=== PATIENT | male | born 1955 | race Caucasian/White ===

== ENCOUNTER 2016-06-07 08:33 | Inpatient (IN) | payer OTHER ==
[2016-06-07 08:50] VITALS: BMI 21.2
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
[2016-06-07] MEDS ORDERED: LOPERAMIDE HCL 2 MG CAPSULE PO PRN (12:24)
[2016-06-07] MEDS ORDERED: MENTHOL/PHENOL 1 EACH UD MM PRN (12:24)
[2016-06-07] MEDS ORDERED: MAGNESIUM HYDROX 2400MG/30ML ORAL SUSPENSION 30 ML CUP PO PRN (12:24)
[2016-06-07] MEDS ORDERED: P-EPHED 60MG/TRIPROLIDI 2.5MG TABLET PO PRN (12:24)
[2016-06-07] MEDS ORDERED: ACETAMINOPHEN 325 MG TABLET (FP) PO PRN (12:24)
[2016-06-07] MEDS ORDERED: MAGNESIUM CITRATE 300 ML BOTTLE PO PRN (12:24)
[2016-06-07] MEDS ORDERED: diphenhydrAMINE HCL 50 MG CAPSULE PO PRN (12:24)
[2016-06-07] MEDS ORDERED: chlordiazePOXIDE HCL 25 MG CAPSULE PO PRN (12:24)
[2016-06-07] MEDS ORDERED: MAG HYDROX/AL HYDROX/SIMETH 30 ML UNIT-DOSE CUP PO PRN (12:24)
[2016-06-07] MEDS ORDERED: chlordiazePOXIDE HCL 25 MG CAPSULE PO ONE (12:39)
[2016-06-07] MEDS ORDERED: METHADONE HCL 10 MG TABLET (FOR DETOX USE ONLY) PO ONE ×2 (12:41→23:00)
[2016-06-07 17:26] LABS: URINE APPEARANCE SLCLOUDY; URINE BILIRUBIN NEGATIVE (NEGATIVE); URINE COLOR YELLOW; URINE GLUCOSE (UA) NEGATIVE (NEGATIVE); URINE KETONE NEGATIVE (NEGATIVE); URINE LEUK ESTERASE NEGATIVE (NEGATIVE); URINE NITRITE NEGATIVE (NEGATIVE); URINE PROTEIN NEGATIVE (NEGATIVE); URINE UROBILINOGEN 2.0 E.U/dl E.U./dl (0.2-1.0)
[2016-06-07 17:27] LABS: URINE BLOOD 1+ (NEGATIVE)
[2016-06-07] MEDS: chlordiazePOXIDE HCL 25 MG CAPSULE PO SCH ×2 (17:33→22:22)
[2016-06-07] MEDS: guaiFENesin/D-METHORPHAN HB 10 ML UNIT-DOSE CUPS PO PRN (17:35)
[2016-06-07 17:40] LABS: CALCIUM OXALATE CRYSTALS MANY /hpf (NONE SEEN); URINE BACTERIA RARE /hpf (NONE SEEN); URINE MUCUS FEW; URINE RBC 9 /hpf (0-3); URINE WBC 2 /hpf (3-5)
[2016-06-07] MEDS: IBUPROFEN 400 MG TABLET (FP) PO PRN (20:57)
[2016-06-07] MEDS: EFAVIRENZ 600 MG TABLET PO SCH (22:20)
[2016-06-07] MEDS: EMTRICITABINE 200MG/TENOFOVIR 300MG PO SCH (22:21)
[2016-06-07] MEDS: THIAMINE HCL 100 MG TABLET (FP) PO SCH (22:21)
[2016-06-07] MEDS: hydrOXYzine PAMOATE 25 MG CAPSULE (FP) PO PRN (22:24)
[2016-06-08] MEDS: chlordiazePOXIDE HCL 25 MG CAPSULE PO SCH ×4 (06:06→22:11)
[2016-06-08] MEDS: IBUPROFEN 400 MG TABLET (FP) PO PRN (06:32)
[2016-06-08] MEDS ORDERED: METHADONE HCL 10 MG TABLET (FOR DETOX USE ONLY) PO SCH (10:00)
[2016-06-08] MEDS ORDERED: cloNIDine HCL 0.1 MG TABLET PO ONE (10:25)
[2016-06-08 10:33] LABS: ALBUMIN 3.3 g/dl (3.4-5.0); ALK PHOS 106 U/L (45-117); ANION GAP 6 (8-16); BILIRUBIN,TOTAL 0.3 mg/dL (0.2-1.0); CALCIUM 8.5 mg/dL (8.5-10.1); CO2 28 mmol/L (21-32); CREATININE 0.8 mg/dL (0.7-1.3); GLUCOSE,RANDOM 96 mg/dL (74-106); SGOT/AST 26 U/L (15-37); SGPT/ALT 21 U/L (12-78); TOT PROT 6.9 g/dl (6.4-8.2)
[2016-06-08] MEDS: PRENATAL VITAMINS W/ FOLIC ACID TABLET (FP) PO SCH (10:34)
[2016-06-08] MEDS: CYCLOBENZAPRINE HCL 10 MG TABLET (FP) PO PRN (10:36)
--- NOTE | 2016-06-08 10:52 | PN ---
S COWS - Scale Resting Pulse: 1= [place] 81-100 Sweatin=Flushed/Facial Moisture Restless Observation: 3= Extraneous Movement Pupil Size: 1= Pupils >than Normal Bone or Joint Aches: 2= Severe Diffuse Aches Runny Nose/ Eye Tearin= Runny Nose/Eyes GI Upset > 30mins: 2= Nausea/Diarrhea Tremor Observation of Outstretched Hands: 2= Slight Tremor Visible Yawning Observation: 1= 1-2x During Session Anxiety or Irritability: 2=Irritable/Anxious Goose Flesh Skin: 0=Smooth Skin COWS Score: 18 S Progress Note (SOAP) Subjective: alert,irritable,anxious,interrupted sleep,tremor,pain in the body and back Objective: 06/08/16 10:50 Vital Signs Temperature 95.8 F L 06/08/16 09:58 Pulse Rate 82 06/08/16 09:58 Respiratory Rate 18 06/08/16 09:58 Blood Pressure 134/87 06/08/16 09:58 O2 Sat by Pulse Oximetry (%) ekg sinus braycardia 55/min Laboratory Last Values Sodium 140 mmol/L (136-145) 06/08/16 06:00 Potassium 3.6 mmol/L (3.5-5.1) 06/08/16 06:00 Chloride 106 mmol/L (98-107) 06/08/16 06:00 Carbon Dioxide 28 mmol/L (21-32) 06/08/16 06:00 Anion Gap 6 (8-16) L 06/08/16 06:00 BUN 20 mg/dL (7-18) H D 06/08/16 06:00 Creatinine 0.8 mg/dL (0.7-1.3) 06/08/16 06:00 Creat Clearance w eGFR > 60 (>60) 06/08/16 06:00 Random Glucose 96 mg/dL (74-106) D 06/08/16 06:00 Calcium 8.5 mg/dL (8.5-10.1) 06/08/16 06:00 Total Bilirubin 0.3 mg/dL (0.2-1.0) D 06/08/16 06:00 AST 26 U/L (15-37) 06/08/16 06:00 ALT 21 U/L (12-78) 06/08/16 06:00 Alkaline Phosphatase 106 U/L (45-117) 06/08/16 06:00 Total Protein 6.9 g/dl (6.4-8.2) 06/08/16 06:00 Albumin 3.3 g/dl (3.4-5.0) L 06/08/16 06:00 Urine Color Yellow 06/07/16 15:00 Urine Appearance Slcloudy 06/07/16 15:00 Urine pH 6.0 (5.0-8.0) 06/07/16 15:00 Ur Specific [place] 1.018 (1.001-1.035) 06/07/16 15:00 Urine Protein Negative (NEGATIVE) 06/07/16 15:00 Urine Glucose (UA) Negative (NEGATIVE) 06/07/16 15:00 Urine Ketones Negative (NEGATIVE) 06/07/16 15:00 Urine Blood 1+ (NEGATIVE) H 06/07/16 15:00 Urine Nitrite Negative (NEGATIVE) 06/07/16 15:00 Urine Bilirubin Negative (NEGATIVE) 06/07/16 15:00 Urine Urobilinogen 2.0 e.u/dl E.U./dl (0.2-1.0) 06/07/16 15:00 Ur Leukocyte Esterase Negative (NEGATIVE) 06/07/16 15:00 Urine RBC 9 /hpf (0-3) 06/07/16 15:00 Urine WBC 2 /hpf (3-5) 06/07/16 15:00 Calcium Oxalate Crystal Many /hpf (NONE SEEN) 06/07/16 15:00 Urine Bacteria Rare /hpf (NONE SEEN) 06/07/16 15:00 Urine Mucus Few 06/07/16 15:00 labs pending Assessment: 06/08/16 10:51 withdrawal symptom Plan: continue detox
[2016-06-08 11:13] LABS: MCH 32.1 pg (25.7-33.7); MCHC 33.8 g/dl (32.0-35.9); MEAN PLT VOLUME 9.8 fl (7.5-11.1); PLATELET COUNT 231 K/MM3 (134-434); RDW 14.9 % (11.9-15.9); WHITE BLOOD COUNT 6.5 K/mm3 (4.0-10.0)
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
[2016-06-08] MEDS: THIAMINE HCL 100 MG TABLET (FP) PO SCH (22:11)
[2016-06-08] MEDS: cloNIDine HCL 0.1 MG TABLET PO SCH (22:11)
[2016-06-08] MEDS: EFAVIRENZ 600 MG TABLET PO SCH (22:11)
[2016-06-08] MEDS: EMTRICITABINE 200MG/TENOFOVIR 300MG PO SCH (22:11)
[2016-06-09] MEDS: chlordiazePOXIDE HCL 25 MG CAPSULE PO SCH ×2 (06:11→10:25)
[2016-06-09] MEDS: cloNIDine HCL 0.1 MG TABLET PO SCH ×2 (10:25→22:43)
[2016-06-09] MEDS: METHADONE HCL 5 MG TABLET (FOR DETOX USE ONLY) PO SCH (10:25)
[2016-06-09] MEDS: PRENATAL VITAMINS W/ FOLIC ACID TABLET (FP) PO SCH (10:25)
[2016-06-09] MEDS: chlordiazePOXIDE 5 MG CAPSULE PO SCH ×2 (17:14→22:43)
[2016-06-09] MEDS: guaiFENesin/D-METHORPHAN HB 10 ML UNIT-DOSE CUPS PO PRN (19:52)
[2016-06-09] MEDS: ALBUTEROL SO4 6.7 GM HFA INHALER IH PRN (21:37)
[2016-06-09] MEDS: THIAMINE HCL 100 MG TABLET (FP) PO SCH (22:42)
[2016-06-09] MEDS: EFAVIRENZ 600 MG TABLET PO SCH (22:43)
[2016-06-09] MEDS: EMTRICITABINE 200MG/TENOFOVIR 300MG PO SCH (22:43)
[2016-06-09] MEDS: hydrOXYzine PAMOATE 25 MG CAPSULE (FP) PO PRN (22:45)
--- NOTE | 2016-06-09 23:21 | PN ---
[facility] CIWA - CIWA Score Nausea/Vomitin-Mild Nausea/No Vomiting Muscle Tremors: 3 Anxiety: 3 Agitation: 3 Paroxysmal Sweats: 3 Orientation: 0-Oriented Tacttile Disturbances: 0-None Auditory Disturbances: 0-None Visual Disturbances: 0-None Headache: 0-None Present CIWA-Ar Total Score: 13 [facility] COWS - Scale Resting Pulse: 0= MD 80 or Below Sweatin= Chills/Flushing Restless Observation: 1= Difficult to Sit Still Pupil Size: 0= Normal to Room Light Bone or Joint Aches: 1= Mild Discomfort Runny Nose/ Eye Tearin= Runny Nose/Eyes GI Upset > 30mins: 2= Nausea/Diarrhea Tremor Observation of Outstretched Hands: 2= Slight Tremor Visible Yawning Observation: 1= 1-2x During Session Anxiety or Irritability: 2=Irritable/Anxious Goose Flesh Skin: 0=Smooth Skin COWS Score: 12 S Progress Note (SOAP) Subjective: ANXIETY,TREMORS,SWEATING,INTERRUPTED SLEEP,RESTLESS. Objective: 06/09/16 23:19 Vital Signs - 8 hr 06/09/16 20:04 Temperature 98.6 F Pulse Rate 77 Respiratory 18 Rate Blood Pressure 127/78 Assessment: 06/09/16 23:20 WITHDRAWAL SX. Plan: CONTINUE DETOX
[2016-06-10] MEDS: chlordiazePOXIDE 5 MG CAPSULE PO SCH ×2 (05:34→10:23)
[2016-06-10] MEDS: METHADONE HCL 5 MG TABLET (FOR DETOX USE ONLY) PO SCH (10:23)
[2016-06-10] MEDS: PRENATAL VITAMINS W/ FOLIC ACID TABLET (FP) PO SCH (10:23)
[2016-06-10] MEDS: cloNIDine HCL 0.1 MG TABLET PO SCH ×2 (10:25→22:26)
[2016-06-10] MEDS: guaiFENesin/D-METHORPHAN HB 10 ML UNIT-DOSE CUPS PO PRN (12:51)
[2016-06-10] MEDS: ALBUTEROL SO4 6.7 GM HFA INHALER IH PRN (12:54)
--- NOTE | 2016-06-10 15:26 | PN ---
[facility] Progress Note (SOAP) Subjective: Sweating, stomach discomfort, interrupted sleep, anxiety Objective: 06/10/16 15:21 Last Vital Signs Temp Pulse Resp BP Pulse Ox 97.8 F 95 H 20 135/84 06/10/16 13:42 06/10/16 13:42 06/10/16 13:42 06/10/16 13:42 Laboratory Tests 06/07/16 06/08/16 06/08/16 15:00 06:00 06:00 WBC 6.5 D RBC 3.93 L Hgb 12.6 Hct 37.3 MCV 95.0 MCHC 33.8 RDW 14.9 D Plt Count 231 MPV 9.8 Sodium 140 Potassium 3.6 Chloride 106 Carbon Dioxide 28 Anion Gap 6 L BUN 20 H D Creatinine 0.8 Creat Clearance w eGFR > 60 Random Glucose 96 D Calcium 8.5 Total Bilirubin 0.3 D AST 26 ALT 21 Alkaline Phosphatase 106 Total Protein 6.9 Albumin 3.3 L Urine Color Yellow Urine Appearance Slcloudy Urine pH 6.0 Ur Specific [place] 1.018 Urine Protein Negative Urine Glucose (UA) Negative Urine Ketones Negative Urine Blood 1+ H Urine Nitrite Negative Urine Bilirubin Negative Urine Urobilinogen 2.0 e.u/dl Ur Leukocyte Esterase Negative Urine RBC 9 Urine WBC 2 Calcium Oxalate Crystal Many Urine Bacteria Rare Urine Mucus Few RPR Titer 06/08/16 06:00 WBC RBC Hgb Hct MCV MCHC RDW Plt Count MPV Sodium Potassium Chloride Carbon Dioxide Anion Gap BUN Creatinine Creat Clearance w eGFR Random Glucose Calcium Total Bilirubin AST ALT Alkaline Phosphatase Total Protein Albumin Urine Color Urine Appearance Urine pH Ur Specific [place] Urine Protein Urine Glucose (UA) Urine Ketones Urine Blood Urine Nitrite Urine Bilirubin Urine Urobilinogen Ur Leukocyte Esterase Urine RBC Urine WBC Calcium Oxalate Crystal Urine Bacteria Urine Mucus RPR Titer Nonreactive Labs noted: microscopic hematuria, calcium oxalate stones Assessment: 06/10/16 15:23 Withdrawal symptoms Noted with microscopic hematuria and calcium oxalate stones Plan: Continue detox; ambien 10mg qhs prn for impaired sleep Microscopic hematuria, calcium oxalate stones: encourage to drink lots of water , repeat UA
[2016-06-10] MEDS: chlordiazePOXIDE HCL 10 MG CAPSULE PO SCH ×2 (17:36→22:25)
[2016-06-10] MEDS: IBUPROFEN 400 MG TABLET (FP) PO PRN (17:39)
[2016-06-10] MEDS: EFAVIRENZ 600 MG TABLET PO SCH (22:25)
[2016-06-10] MEDS: THIAMINE HCL 100 MG TABLET (FP) PO SCH (22:25)
[2016-06-10] MEDS: EMTRICITABINE 200MG/TENOFOVIR 300MG PO SCH (22:27)
[2016-06-10] MEDS: ZOLPIDEM TARTRATE 10 MG TABLET (PARK CARE ONLY) PO PRN (23:21)
[2016-06-11] MEDS: guaiFENesin/D-METHORPHAN HB 10 ML UNIT-DOSE CUPS PO PRN (04:43)
[2016-06-11] MEDS: chlordiazePOXIDE HCL 10 MG CAPSULE PO SCH ×2 (05:41→10:34)
[2016-06-11] MEDS ORDERED: METHADONE HCL 10 MG TABLET (FOR DETOX USE ONLY) PO SCH (10:00)
[2016-06-11] MEDS: BACITRACIN 0.9 GM PACKET TP SCH ×2 (10:34→22:34)
[2016-06-11] MEDS: PRENATAL VITAMINS W/ FOLIC ACID TABLET (FP) PO SCH (10:34)
[2016-06-11] MEDS: cloNIDine HCL 0.1 MG TABLET PO SCH ×2 (10:34→22:34)
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
[2016-06-11 16:40] LABS: URINE APPEARANCE CLEAR; URINE BILIRUBIN NEGATIVE (NEGATIVE); URINE BLOOD NEGATIVE (NEGATIVE); URINE COLOR STRAW; URINE GLUCOSE (UA) NEGATIVE (NEGATIVE); URINE KETONE NEGATIVE (NEGATIVE); URINE LEUK ESTERASE NEGATIVE (NEGATIVE); URINE NITRITE NEGATIVE (NEGATIVE); URINE PROTEIN NEGATIVE (NEGATIVE); URINE UROBILINOGEN NEGATIVE E.U./dl (0.2-1.0)
[2016-06-11] MEDS: CYCLOBENZAPRINE HCL 10 MG TABLET (FP) PO PRN (17:09)
[2016-06-11] MEDS: IBUPROFEN 400 MG TABLET (FP) PO PRN (17:09)
[2016-06-11] MEDS: EFAVIRENZ 600 MG TABLET PO SCH (22:34)
[2016-06-11] MEDS: EMTRICITABINE 200MG/TENOFOVIR 300MG PO SCH (22:34)
[2016-06-11] MEDS: ZOLPIDEM TARTRATE 10 MG TABLET (PARK CARE ONLY) PO PRN (22:36)
[2016-06-11] MEDS: THIAMINE HCL 100 MG TABLET (FP) PO SCH (23:46)
[2016-06-12] MEDS ORDERED: METHADONE HCL 5 MG TABLET (FOR DETOX USE ONLY) PO SCH (06:00)
--- NOTE | 2016-06-12 08:22 | PN ---
S Progress Note (SOAP) Subjective: ALERT,NO COMPLAINT Objective: 06/12/16 08:20 Vital Signs Temperature 97.6 F 06/12/16 06:27 Pulse Rate 80 06/12/16 06:27 Respiratory Rate 18 06/12/16 06:27 Blood Pressure 122/78 06/12/16 06:27 O2 Sat by Pulse Oximetry (%) Assessment: 06/12/16 08:21 DETOX COMPLETED,NO WITHDRAWAL SYMPTOM Plan: DISCHARGE TODAY,FOLLOW UP WITH AFTER CARE PROGRAM ARRANGEMENT
--- NOTE | 2016-06-12 08:25 | DS ---
[facility] Detox Discharge Summary Admission Date: 06/07/16 Discharge Date: 06/13/16 - History Present History: Cocaine Dependence, Opioid Dependence Additional Comments: FOLLOW UP WITH AFTER CARE PROGRAM ARRANGEMENT Pertinent Past History: AIDS ASTHMA HEPATITIS C WEIGHT LOSS NICOTINE DEPENDENCE BIPOLAR DISORDER - Physical Exam Results Vital Signs: Vital Signs Temperature 97.6 F 06/12/16 06:27 Pulse Rate 80 06/12/16 06:27 Respiratory Rate 18 06/12/16 06:27 Blood Pressure 122/78 06/12/16 06:27 O2 Sat by Pulse Oximetry (%) Pertinent Admission Physical Exam Findings: WITHDRAWAL SYMPTOM - Treatment Hospital Course: Detox Protocol Followed, Detoxed Safely, Responded well, Discharged Condition Good Patient has Accepted a Rehab Referral to: [facility] - Medication Discharge Medications: Ambulatory Orders Albuterol Sulfate Inhaler - [Ventolin HFA Inhaler -] 2 inh PO Q4H PRN 12/08/13 Efavirenz/Emtricitab/Tenofovir [Atripla Tablet -] 1 tab PO DAILY 03/23/16 Gabapentin [Neurontin -] 300 mg PO Q8H 06/07/16 - Diagnosis (1) Cocaine dependence Current Visit: Yes Status: Acute (2) Opioid dependence with withdrawal Current Visit: Yes Status: Acute (3) Acquired immune deficiency syndrome (AIDS) Current Visit: Yes Status: Chronic (4) Asthma Current Visit: Yes Status: Chronic Qualifiers: Asthma severity: mild intermittent Asthma complication type: uncomplicated Qualified Code(s): J45.20 - Mild intermittent asthma, uncomplicated (5) Hepatitis C carrier Current Visit: Yes Status: Chronic (6) Nicotine dependence, cigarettes, uncomplicated Current Visit: Yes Status: Acute (7) Weight loss Current Visit: Yes Status: Chronic (8) Bipolar disorder Current Visit: Yes Status: Acute - AMA Did Patient Leave Against Medical Advice: No
[2016-06-12 09:42] VITALS: BP 108/61; PULSE 67; TEMP 97.8
[2016-06-12] MEDS: BACITRACIN 0.9 GM PACKET TP SCH (10:39)
[2016-06-12] MEDS: cloNIDine HCL 0.1 MG TABLET PO SCH (10:39)
[2016-06-12] MEDS: PRENATAL VITAMINS W/ FOLIC ACID TABLET (FP) PO SCH (10:39)
--- NOTE | 2016-06-13 09:42 | EKG ---
Test Reason : Blood Pressure : / mmHG Vent. Rate : 055 BPM Atrial Rate : 055 BPM P-R Int : 172 ms QRS Dur : 098 ms QT Int : 488 ms P-R-T Axes : 055 053 047 degrees QTc Int : 466 ms SINUS BRADYCARDIA OTHERWISE NORMAL ECG WHEN COMPARED WITH ECG OF 08-SEP-2015 17:29, INCOMPLETE RIGHT BUNDLE BRANCH BLOCK IS NO LONGER PRESENT Confirmed by KENDALL DAMIAN, LENNY ([id number]) on 06/13/2016 9:42:33 AM Referred By: Yair Phillip Confirmed By:LENNY ARGUETA MD
== END 2016-06-12 10:43 | disposition other institution (70) | DRG 773 ==
LOC: YASAS 08:33 → Y3N 12:27
PROVIDERS: ADMIT Internal Medicine; ATTEND Internal Medicine
PROC: HZ2ZZZZ Detoxification Services for Substance Abuse Treatment (ICD-10-PCS; principal; 2016-06-07)
DX: F11.23 Opioid dependence with withdrawal (principal); F10.230 Alcohol dependence with withdrawal, uncomplicated; F14.20 Cocaine dependence, uncomplicated; F17.210 Nicotine dependence, cigarettes, uncomplicated; F31.9 Bipolar disorder, unspecified; B20 Human immunodeficiency virus [HIV] disease; J45.20 Mild intermittent asthma, uncomplicated; B18.2 Chronic viral hepatitis C; R31.29 Other microscopic hematuria; H91.91 Unspecified hearing loss, right ear; G62.9 Polyneuropathy, unspecified; M54.5 Low back pain; G89.29 Other chronic pain; R76.11 Nonspecific reaction to tuberculin skin test without active tuberculosis; M12.9 Arthropathy, unspecified; R00.1 Bradycardia, unspecified; Z87.898 Personal history of other specified conditions
CPT/HCPCS: 36415; 71010-TC; 80053; 81003; 81015; 85027; 86593; 93005; 93010

== ENCOUNTER 2016-06-12 11:01 | Inpatient (IN) | payer OTHER ==
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
[2016-06-12] MEDS ORDERED: ACETAMINOPHEN 325 MG TABLET (FP) PO PRN (14:56)
[2016-06-12] MEDS ORDERED: MAGNESIUM HYDROX 2400MG/30ML ORAL SUSPENSION 30 ML CUP PO PRN (14:56)
[2016-06-12] MEDS ORDERED: MAGNESIUM CITRATE 300 ML BOTTLE PO PRN (14:56)
[2016-06-12] MEDS ORDERED: MAG HYDROX/AL HYDROX/SIMETH 30 ML UNIT-DOSE CUP PO PRN (14:56)
[2016-06-12] MEDS ORDERED: diphenhydrAMINE HCL 50 MG CAPSULE PO PRN (14:56)
[2016-06-12] MEDS ORDERED: MENTHOL/PHENOL 1 EACH UD MM PRN (14:56)
[2016-06-12] MEDS ORDERED: NICOTINE POLACRILEX 4 MG GUM BUC PRN (14:56)
[2016-06-12] MEDS ORDERED: LOPERAMIDE HCL 2 MG CAPSULE PO PRN (14:56)
[2016-06-12] MEDS ORDERED: GABAPENTIN 300 MG CAPSULE (FP) PO SCH (15:00)
--- NOTE | 2016-06-12 16:19 | HP ---
[facility] Rehab Assess/Revision - Admission History Admitted to Rehab from: [facility] Date of Admission to Rehab: 06/12/16 - Vital signs Vital Signs: Vital Signs Period Temp Pulse Resp BP Sys/Hyman Pulse Ox Last 24 Hr 98.2 F 84 18 116/67 - Findings Detox History & Physical reviewed: Yes Concur with findings: Yes Comments/Additional Findings: transferred from detox to rehab admission as per protocol
[2016-06-12] MEDS: CEPHALEXIN MONOHYDRATE 500 MG CAPSULE (UD) PO SCH ×2 (17:51→23:01)
[2016-06-12] MEDS: IBUPROFEN 400 MG TABLET (FP) PO PRN (17:55)
[2016-06-12] MEDS: THIAMINE HCL 100 MG TABLET (FP) PO SCH (21:20)
[2016-06-12] MEDS: traZODone HCL 100 MG TABLET (FP) PO SCH (21:20)
[2016-06-12] MEDS: TOLNAFTATE 1% CREAM 15 GM TUBE TP SCH (21:21)
[2016-06-12] MEDS: GABAPENTIN 300 MG CAPSULE (FP) PO SCH (21:21)
[2016-06-12] MEDS: POVIDONE-IODINE 10% SOLN 118 ML BOTTLE NR SCH (21:21)
[2016-06-12] MEDS: guaiFENesin/D-METHORPHAN HB 10 ML UNIT-DOSE CUPS PO PRN (21:21)
[2016-06-12] MEDS ORDERED: POVIDONE-IODINE 10% SOLN 118 ML BOTTLE NR SCH (22:00)
--- NOTE | 2016-06-12 22:39 | PN ---
[facility] Progress Note Note: received nurse call requests to change keflex from q6h to qid recommend antibiotic better result with even interval continue rehab
[2016-06-13] MEDS: CEPHALEXIN MONOHYDRATE 500 MG CAPSULE (UD) PO SCH ×3 (05:55→17:20)
[2016-06-13] MEDS: GABAPENTIN 300 MG CAPSULE (FP) PO SCH ×3 (05:55→21:26)
[2016-06-13] MEDS: IBUPROFEN 400 MG TABLET (FP) PO PRN ×2 (05:56→17:20)
[2016-06-13] MEDS: P-EPHED 60MG/TRIPROLIDI 2.5MG TABLET PO PRN (05:57)
[2016-06-13] MEDS: guaiFENesin/D-METHORPHAN HB 10 ML UNIT-DOSE CUPS PO PRN ×3 (05:59→21:27)
[2016-06-13] MEDS: PRENATAL VITAMINS W/ FOLIC ACID TABLET (FP) PO SCH (09:45)
[2016-06-13] MEDS: EFAVIRENZ 600 MG TABLET PO SCH (09:45)
[2016-06-13] MEDS: EMTRICITABINE 200MG/TENOFOVIR 300MG PO SCH (09:46)
[2016-06-13] MEDS: TOLNAFTATE 1% CREAM 15 GM TUBE TP SCH ×2 (09:49→21:25)
[2016-06-13] MEDS: NICOTINE 21 MG/24 HOURS TOPICAL PATCH TD SCH (09:49)
[2016-06-13] MEDS: POVIDONE-IODINE 10% SOLN 118 ML BOTTLE NR SCH ×2 (09:50→21:28)
[2016-06-13] MEDS: ALBUTEROL SO4 6.7 GM HFA INHALER IH PRN (12:55)
[2016-06-13] MEDS: traZODone HCL 100 MG TABLET (FP) PO SCH (21:26)
[2016-06-13] MEDS: THIAMINE HCL 100 MG TABLET (FP) PO SCH (21:28)
[2016-06-14] MEDS: CEPHALEXIN MONOHYDRATE 500 MG CAPSULE (UD) PO SCH ×5 (00:18→23:01)
[2016-06-14] MEDS: GABAPENTIN 300 MG CAPSULE (FP) PO SCH ×3 (05:52→21:39)
[2016-06-14] MEDS: IBUPROFEN 400 MG TABLET (FP) PO PRN ×2 (05:53→13:07)
[2016-06-14] MEDS: P-EPHED 60MG/TRIPROLIDI 2.5MG TABLET PO PRN (05:55)
[2016-06-14] MEDS: guaiFENesin/D-METHORPHAN HB 10 ML UNIT-DOSE CUPS PO PRN ×3 (05:56→21:40)
[2016-06-14] MEDS: EFAVIRENZ 600 MG TABLET PO SCH (09:46)
[2016-06-14] MEDS: NICOTINE 21 MG/24 HOURS TOPICAL PATCH TD SCH (09:46)
[2016-06-14] MEDS: PRENATAL VITAMINS W/ FOLIC ACID TABLET (FP) PO SCH (09:46)
[2016-06-14] MEDS: POVIDONE-IODINE 10% SOLN 118 ML BOTTLE NR SCH ×2 (09:47→22:54)
[2016-06-14] MEDS: EMTRICITABINE 200MG/TENOFOVIR 300MG PO SCH (09:47)
[2016-06-14] MEDS: TOLNAFTATE 1% CREAM 15 GM TUBE TP SCH ×2 (09:47→21:38)
[2016-06-14] MEDS ORDERED: LIDOCAINE 5% TOPICAL PATCH TP ONE (17:00)
[2016-06-14] MEDS: traZODone HCL 100 MG TABLET (FP) PO SCH (21:39)
[2016-06-14] MEDS: DOCUSATE SODIUM 100 MG CAPSULE (FP) PO SCH (21:39)
[2016-06-14] MEDS: THIAMINE HCL 100 MG TABLET (FP) PO SCH (21:39)
[2016-06-15] MEDS: DOCUSATE SODIUM 100 MG CAPSULE (FP) PO SCH ×3 (05:53→21:33)
[2016-06-15] MEDS: CEPHALEXIN MONOHYDRATE 500 MG CAPSULE (UD) PO SCH ×4 (05:53→23:56)
[2016-06-15] MEDS: GABAPENTIN 300 MG CAPSULE (FP) PO SCH ×3 (05:53→21:34)
[2016-06-15] MEDS: P-EPHED 60MG/TRIPROLIDI 2.5MG TABLET PO PRN (05:54)
[2016-06-15] MEDS: guaiFENesin/D-METHORPHAN HB 10 ML UNIT-DOSE CUPS PO PRN (05:55)
[2016-06-15] MEDS: IBUPROFEN 600 MG TABLET (FP) PO PRN ×2 (05:56→14:50)
--- NOTE | 2016-06-15 09:53 | PN ---
Psychiatric Progress Note Vital Signs: Vital Signs Period Temp Pulse Resp BP Sys/Hyman Pulse Ox Last 24 Hr 98.6 F 91 18-20 145/89 Date of Session: 06/15/16 Chief Complaint:: Insomnia HPI: Patient addressing Alcohol, Opoid and Cocaine Dependence comorbid with Nicotine Dependence and Substance-Induced Anxiety Disorder ROS: AIDS, Asthma, Arthritis, Back pain, Hep C Current Medications: Active Medications Generic Name Dose Route Start Last Admin Trade Name Freq PRN Reason Stop Dose Admin Acetaminophen 650 mg 06/12/16 14:56 Tylenol - PO Q4H PRN FEVER OR PAIN Al Hydroxide/Mg Hydroxide 30 ml 06/12/16 14:56 Mylanta Oral Suspension - PO Q6H PRN DYSPEPSIA Albuterol Sulfate 2 puff 06/12/16 14:56 06/13/16 12:55 Ventolin Hfa Inhaler - IH 2 puff Q4H PRN Administration ASTHMA Cephalexin HCl 500 mg 06/12/16 18:00 06/15/16 05:53 Keflex - PO 500 mg Q6HPO BESSIE Administration Diphenhydramine HCl 50 mg 06/12/16 14:56 Benadryl - PO HSMR1 PRN FOR ITCHING Docusate Sodium 100 mg 06/14/16 22:00 06/15/16 05:53 Colace - PO 100 mg TID BESSIE Administration Efavirenz 600 mg 06/13/16 10:00 06/14/16 09:46 Sustiva - PO 600 mg DAILY BESSIE Administration Emtricitabine/Tenofovir 1 tab 06/13/16 10:00 06/14/16 09:47 Truvada PO 1 tab DAILY BESSIE Administration Eucalyptus/Menthol/Phenol/Sorbitol 1 each 06/12/16 14:56 06/15/16 05:54 Cepastat Lozenge - MM 1 each Q4H PRN Administration SORE THROAT Gabapentin 300 mg 06/12/16 22:00 06/15/16 05:53 Neurontin - PO 300 mg TID BESSIE Administration Guaifenesin 10 ml 06/12/16 14:56 06/15/16 05:55 Robitussin Dm - PO 10 ml Q6H PRN Administration COUGH Ibuprofen 600 mg 06/14/16 15:46 06/15/16 05:56 Motrin - PO 600 mg Q6H PRN Administration PAIN Lidocaine 1 patch 06/15/16 10:00 Lidoderm Patch - TP DAILY BESSIE Loperamide HCl 4 mg 06/12/16 14:56 Imodium - PO Q6H PRN DIARRHEA Magnesium Hydroxide 30 ml 06/12/16 14:56 Milk Of Magnesia - PO DAILY PRN CONSTIPATION Nicotine 21 mg 06/13/16 10:00 06/14/16 09:46 Nicoderm Patch - TD Not Given DAILY BESSIE Nicotine Polacrilex 4 mg 06/12/16 14:56 Nicorette Gum - BUC Q2H PRN NICOTINE REPLACEMENT RX Povidone Iodine 1 applic 06/12/16 22:00 06/14/16 22:54 Betadine 10% Solution - NR Not Given BID BESSIE Multivit/Folic Acid/Iron 1 tab 06/13/16 10:00 06/14/16 09:46 Vitamins (Sjr) - PO 1 tab DAILY BESSIE Administration Pseudoephedrine/Triprolidine 1 combo 06/12/16 14:56 06/15/16 05:54 Actifed - PO 1 combo TID PRN Administration NASAL CONGESTION Thiamine HCl 100 mg 06/12/16 22:00 06/14/16 21:39 Vitamin B1 - PO 100 mg HS BESSIE Administration Tolnaftate 1 applic 06/12/16 22:00 06/14/16 21:38 Tinactin 1% Cream - TP 1 applic BID BESSIE Administration Trazodone HCl 100 mg 06/12/16 22:00 06/14/16 21:39 Desyrel - PO 100 mg HS BESSIE Administration Medication(s) Change(s): Start Trazadone 150 mg po HS for insomnia Current Side Effect: No Lab tests ordered: No Lab tests reviewed: No Provider note:: Patient reports experiencing difficulty to sleep. Told comic writer justina has not been able to sleep well despite taking Trazadone 100 mg po HS. Requests to be ordered Seroquel saying:"I used to take it when I was in [facility] and it helped me". After adverse-effects of Seroquel with patient including Tardive Dyskenesia compared with [place] were discussed with patient, he opted to try a higher dose of Trazadone Total face to face time:: 25 Mental Status Exam - Mental Status Exam Alert and Oriented to: Time, Place, Person Cognitive Function: Fair Patient Appearance: Well Groomed Mood: Hopeful, Euthymic Affect: Appropriate Patient Behavior: Cooperative Speech Pattern: Clear Voice Loudness: Normal Thought Process: Intact Thought Disorder: Not Present Hallucinations: Denies Suicidal Ideation: Denies Homicidal Ideation: Denies Insight/Judgement: Fair Sleep: Poorly Appetite: Good Muscle strength/Tone: Normal Gait/Station: Normal Psychiatric Treatment Plan - Problem List (1) Alcohol dependence Current Visit: Yes (2) Opioid dependence with withdrawal Current Visit: No (3) Cocaine dependence Current Visit: No (4) Nicotine dependence, cigarettes, uncomplicated Current Visit: No (5) Substance-induced anxiety disorder Current Visit: Yes (6) Acquired immune deficiency syndrome (AIDS) Current Visit: No Comment: not taking any medication at the moment (7) Arthritis Current Visit: No (8) Asthma Current Visit: No Qualifiers: Asthma severity: mild intermittent Asthma complication type: uncomplicated Qualified Code(s): J45.20 - Mild intermittent asthma, uncomplicated (9) Back ache Current Visit: No Qualifiers: Back pain location: back pain in unspecified location Back pain laterality: unspecified (10) Hepatitis C carrier Current Visit: No (11) Oral thrush Current Visit: No Initial treatment plan: 1) Discontinue Trazadone 100 mg po HS. 2) Start Trazadone 150 mg po HS for insomnia. 3) Monitor progress
[2016-06-15] MEDS: EFAVIRENZ 600 MG TABLET PO SCH (09:55)
[2016-06-15] MEDS: NICOTINE 21 MG/24 HOURS TOPICAL PATCH TD SCH (09:55)
[2016-06-15] MEDS: PRENATAL VITAMINS W/ FOLIC ACID TABLET (FP) PO SCH (09:55)
[2016-06-15] MEDS: TOLNAFTATE 1% CREAM 15 GM TUBE TP SCH ×2 (09:56→21:36)
[2016-06-15] MEDS: EMTRICITABINE 200MG/TENOFOVIR 300MG PO SCH (09:56)
[2016-06-15] MEDS: LIDOCAINE 5% TOPICAL PATCH TP SCH (09:56)
[2016-06-15] MEDS: POVIDONE-IODINE 10% SOLN 118 ML BOTTLE NR SCH ×2 (10:52→21:48)
[2016-06-15] MEDS: THIAMINE HCL 100 MG TABLET (FP) PO SCH (21:33)
[2016-06-15] MEDS: traZODone HCL 100 MG TABLET (FP) PO SCH (21:34)
[2016-06-16] MEDS: GABAPENTIN 300 MG CAPSULE (FP) PO SCH ×3 (06:37→21:07)
[2016-06-16] MEDS: DOCUSATE SODIUM 100 MG CAPSULE (FP) PO SCH ×3 (06:37→21:07)
[2016-06-16] MEDS: CEPHALEXIN MONOHYDRATE 500 MG CAPSULE (UD) PO SCH ×4 (06:37→23:02)
[2016-06-16] MEDS: IBUPROFEN 600 MG TABLET (FP) PO PRN ×2 (06:38→14:17)
[2016-06-16] MEDS: guaiFENesin/D-METHORPHAN HB 10 ML UNIT-DOSE CUPS PO PRN ×2 (06:38→14:20)
[2016-06-16] MEDS: P-EPHED 60MG/TRIPROLIDI 2.5MG TABLET PO PRN ×2 (06:38→14:20)
[2016-06-16] MEDS: PRENATAL VITAMINS W/ FOLIC ACID TABLET (FP) PO SCH (10:16)
[2016-06-16] MEDS: NICOTINE 21 MG/24 HOURS TOPICAL PATCH TD SCH (10:17)
[2016-06-16] MEDS: LIDOCAINE 5% TOPICAL PATCH TP SCH (10:18)
[2016-06-16] MEDS: EFAVIRENZ 600 MG TABLET PO SCH (10:18)
[2016-06-16] MEDS: EMTRICITABINE 200MG/TENOFOVIR 300MG PO SCH (10:19)
[2016-06-16] MEDS: TOLNAFTATE 1% CREAM 15 GM TUBE TP SCH ×2 (10:21→22:09)
[2016-06-16] MEDS: POVIDONE-IODINE 10% SOLN 118 ML BOTTLE NR SCH ×2 (10:21→22:09)
[2016-06-16] MEDS: traZODone HCL 100 MG TABLET (FP) PO SCH (21:07)
[2016-06-16] MEDS: THIAMINE HCL 100 MG TABLET (FP) PO SCH (21:07)
[2016-06-16] MEDS: traZODone HCL 50 MG TABLET (FP) PO SCH (22:13)
[2016-06-17] MEDS: GABAPENTIN 300 MG CAPSULE (FP) PO SCH ×3 (05:21→21:10)
[2016-06-17] MEDS: CEPHALEXIN MONOHYDRATE 500 MG CAPSULE (UD) PO SCH ×3 (05:21→19:14)
[2016-06-17] MEDS: IBUPROFEN 600 MG TABLET (FP) PO PRN ×2 (05:22→13:17)
[2016-06-17] MEDS: guaiFENesin/D-METHORPHAN HB 10 ML UNIT-DOSE CUPS PO PRN (08:38)
[2016-06-17] MEDS: P-EPHED 60MG/TRIPROLIDI 2.5MG TABLET PO PRN (08:38)
[2016-06-17] MEDS: EFAVIRENZ 600 MG TABLET PO SCH (09:51)
[2016-06-17] MEDS: POVIDONE-IODINE 10% SOLN 118 ML BOTTLE NR SCH ×2 (09:52→21:10)
[2016-06-17] MEDS: LIDOCAINE 5% TOPICAL PATCH TP SCH (09:52)
[2016-06-17] MEDS: PRENATAL VITAMINS W/ FOLIC ACID TABLET (FP) PO SCH (09:52)
[2016-06-17] MEDS: EMTRICITABINE 200MG/TENOFOVIR 300MG PO SCH (09:52)
[2016-06-17] MEDS: NICOTINE 21 MG/24 HOURS TOPICAL PATCH TD SCH (09:53)
[2016-06-17] MEDS: TOLNAFTATE 1% CREAM 15 GM TUBE TP SCH ×2 (09:53→21:10)
[2016-06-17] MEDS: traZODone HCL 50 MG TABLET (FP) PO SCH (21:09)
[2016-06-17] MEDS: THIAMINE HCL 100 MG TABLET (FP) PO SCH (21:09)
[2016-06-18] MEDS: CEPHALEXIN MONOHYDRATE 500 MG CAPSULE (UD) PO SCH ×5 (00:46→23:28)
[2016-06-18] MEDS: GABAPENTIN 300 MG CAPSULE (FP) PO SCH ×3 (06:01→21:39)
[2016-06-18] MEDS: IBUPROFEN 600 MG TABLET (FP) PO PRN ×2 (06:01→21:41)
[2016-06-18] MEDS: guaiFENesin/D-METHORPHAN HB 10 ML UNIT-DOSE CUPS PO PRN (09:33)
[2016-06-18] MEDS: EFAVIRENZ 600 MG TABLET PO SCH (09:33)
[2016-06-18] MEDS: POVIDONE-IODINE 10% SOLN 118 ML BOTTLE NR SCH ×2 (09:33→21:52)
[2016-06-18] MEDS: NICOTINE 21 MG/24 HOURS TOPICAL PATCH TD SCH (09:33)
[2016-06-18] MEDS: PRENATAL VITAMINS W/ FOLIC ACID TABLET (FP) PO SCH (09:33)
[2016-06-18] MEDS: EMTRICITABINE 200MG/TENOFOVIR 300MG PO SCH (09:33)
[2016-06-18] MEDS: TOLNAFTATE 1% CREAM 15 GM TUBE TP SCH ×2 (09:34→21:42)
[2016-06-18] MEDS: LIDOCAINE 5% TOPICAL PATCH TP SCH (10:56)
[2016-06-18] MEDS: THIAMINE HCL 100 MG TABLET (FP) PO SCH (21:39)
[2016-06-18] MEDS: traZODone HCL 50 MG TABLET (FP) PO SCH (21:39)
[2016-06-19] MEDS: IBUPROFEN 600 MG TABLET (FP) PO PRN ×2 (05:40→21:36)
[2016-06-19] MEDS: CEPHALEXIN MONOHYDRATE 500 MG CAPSULE (UD) PO SCH ×3 (05:40→17:01)
[2016-06-19] MEDS: GABAPENTIN 300 MG CAPSULE (FP) PO SCH ×3 (05:40→21:34)
[2016-06-19] MEDS: PRENATAL VITAMINS W/ FOLIC ACID TABLET (FP) PO SCH (10:16)
[2016-06-19] MEDS: guaiFENesin/D-METHORPHAN HB 10 ML UNIT-DOSE CUPS PO PRN (10:16)
[2016-06-19] MEDS: TOLNAFTATE 1% CREAM 15 GM TUBE TP SCH ×2 (10:17→21:37)
[2016-06-19] MEDS: EMTRICITABINE 200MG/TENOFOVIR 300MG PO SCH (10:17)
[2016-06-19] MEDS: EFAVIRENZ 600 MG TABLET PO SCH (10:17)
[2016-06-19] MEDS: LIDOCAINE 5% TOPICAL PATCH TP SCH (10:17)
[2016-06-19] MEDS: NICOTINE 21 MG/24 HOURS TOPICAL PATCH TD SCH (10:17)
[2016-06-19] MEDS: POVIDONE-IODINE 10% SOLN 118 ML BOTTLE NR SCH ×2 (10:18→21:34)
[2016-06-19] MEDS ORDERED: hydrOXYzine PAMOATE 50 MG CAPSULE (FP) PO PRN (14:27)
--- NOTE | 2016-06-19 14:32 | PN ---
Psychiatric Progress Note Vital Signs: Vital Signs Period Temp Pulse Resp BP Sys/Hyman Pulse Ox Last 24 Hr 98.4 F 71 18-18 134/84 Date of Session: 06/19/16 Chief Complaint:: Anxiety HPI: Patient adressing Alcohol, Opoid and Cocaine Dependence comorbid with Nicotine Dependence and Substance-Induced Anxiety Disorder ROS: HIV/AIDS, Asthma, Backache, Oral thrush Current Medications: Active Medications Generic Name Dose Route Start Last Admin Trade Name Freq PRN Reason Stop Dose Admin Acetaminophen 650 mg 06/12/16 14:56 Tylenol - PO Q4H PRN FEVER OR PAIN Al Hydroxide/Mg Hydroxide 30 ml 06/12/16 14:56 Mylanta Oral Suspension - PO Q6H PRN DYSPEPSIA Albuterol Sulfate 2 puff 06/12/16 14:56 06/13/16 12:55 Ventolin Hfa Inhaler - IH 2 puff Q4H PRN Administration ASTHMA Cephalexin HCl 500 mg 06/12/16 18:00 06/19/16 12:53 Keflex - PO 500 mg Q6HPO BESSIE Administration Diphenhydramine HCl 50 mg 06/12/16 14:56 Benadryl - PO HSMR1 PRN FOR ITCHING Efavirenz 600 mg 06/13/16 10:00 06/19/16 10:17 Sustiva - PO 600 mg DAILY BESSIE Administration Emtricitabine/Tenofovir 1 tab 06/13/16 10:00 06/19/16 10:17 Truvada PO 1 tab DAILY BESSIE Administration Eucalyptus/Menthol/Phenol/Sorbitol 1 each 06/12/16 14:56 06/15/16 05:54 Cepastat Lozenge - MM 1 each Q4H PRN Administration SORE THROAT Gabapentin 300 mg 06/12/16 22:00 06/19/16 05:40 Neurontin - PO 300 mg TID BESSIE Administration Guaifenesin 10 ml 06/12/16 14:56 06/19/16 10:16 Robitussin Dm - PO 10 ml Q6H PRN Administration COUGH Ibuprofen 600 mg 06/14/16 15:46 06/19/16 05:40 Motrin - PO 600 mg Q6H PRN Administration PAIN Lidocaine 1 patch 06/15/16 10:00 06/19/16 10:17 Lidoderm Patch - TP 1 patch DAILY BESSIE Administration Loperamide HCl 4 mg 06/12/16 14:56 Imodium - PO Q6H PRN DIARRHEA Magnesium Hydroxide 30 ml 06/12/16 14:56 Milk Of Magnesia - PO DAILY PRN CONSTIPATION Nicotine 21 mg 06/13/16 10:00 06/19/16 10:17 Nicoderm Patch - TD Not Given DAILY BESSIE Nicotine Polacrilex 4 mg 06/12/16 14:56 Nicorette Gum - BUC Q2H PRN NICOTINE REPLACEMENT RX Povidone Iodine 1 applic 06/12/16 22:00 06/19/16 10:18 Betadine 10% Solution - NR 1 applic BID BESSIE Administration Multivit/Folic Acid/Iron 1 tab 06/13/16 10:00 06/19/16 10:16 Vitamins (Sjr) - PO 1 tab DAILY BESSIE Administration Pseudoephedrine/Triprolidine 1 combo 06/12/16 14:56 06/17/16 08:38 Actifed - PO 1 combo TID PRN Administration NASAL CONGESTION Thiamine HCl 100 mg 06/12/16 22:00 06/18/16 21:39 Vitamin B1 - PO 100 mg HS BESSIE Administration Tolnaftate 1 applic 06/12/16 22:00 06/19/16 10:17 Tinactin 1% Cream - TP Not Given BID BESSIE Trazodone HCl 150 mg 06/16/16 22:00 06/18/16 21:39 Desyrel - PO 150 mg HS BESSIE Administration Medication(s) Change(s): Start Vistaril 50 mg po Q 4hrs prn for anxiety Current Side Effect: No Lab tests ordered: Yes Lab tests reviewed: Yes Provider note:: Patient reports that he has been experiencing a lot of anxiety and requests Vistaril be ordered for him. Told contract technical writer thar he tried it with good response in the past Total face to face time:: 25 Mental Status Exam - Mental Status Exam Alert and Oriented to: Time, Place, Person Cognitive Function: Fair Patient Appearance: Well Groomed Mood: Anxious Affect: Appropriate Patient Behavior: Cooperative Speech Pattern: Clear Voice Loudness: Normal Thought Process: Intact Thought Disorder: Not Present Hallucinations: Denies Suicidal Ideation: Denies Homicidal Ideation: Denies Insight/Judgement: Fair Sleep: Fair Appetite: Good Muscle strength/Tone: Normal Gait/Station: Normal Psychiatric Treatment Plan - Problem List (1) Alcohol dependence Current Visit: Yes (2) Opioid dependence with withdrawal Current Visit: No (3) Cocaine dependence Current Visit: No (4) Nicotine dependence, cigarettes, uncomplicated Current Visit: No (5) Substance-induced anxiety disorder Current Visit: Yes (6) Acquired immune deficiency syndrome (AIDS) Current Visit: No Comment: not taking any medication at the moment (7) Arthritis Current Visit: No (8) Asthma Current Visit: No Qualifiers: Asthma severity: mild intermittent Asthma complication type: uncomplicated Qualified Code(s): J45.20 - Mild intermittent asthma, uncomplicated (9) Back ache Current Visit: No Qualifiers: Back pain location: back pain in unspecified location Back pain laterality: unspecified (10) Hepatitis C carrier Current Visit: No (11) Oral thrush Current Visit: No Initial treatment plan: 1) Start Vistaril 50 mg po Q 4 hrs prn for anxiety. 2) Monitor progress
[2016-06-19] MEDS: traZODone HCL 50 MG TABLET (FP) PO SCH (21:33)
[2016-06-19] MEDS: THIAMINE HCL 100 MG TABLET (FP) PO SCH (21:33)
[2016-06-19] MEDS: hydrOXYzine PAMOATE 50 MG CAPSULE (FP) PO PRN (21:36)
[2016-06-20] MEDS: GABAPENTIN 300 MG CAPSULE (FP) PO SCH ×2 (06:07→14:10)
[2016-06-20] MEDS: IBUPROFEN 600 MG TABLET (FP) PO PRN ×3 (06:08→21:09)
[2016-06-20] MEDS: PRENATAL VITAMINS W/ FOLIC ACID TABLET (FP) PO SCH (09:48)
[2016-06-20] MEDS: EFAVIRENZ 600 MG TABLET PO SCH (09:49)
[2016-06-20] MEDS: POVIDONE-IODINE 10% SOLN 118 ML BOTTLE NR SCH ×2 (09:49→21:10)
[2016-06-20] MEDS: EMTRICITABINE 200MG/TENOFOVIR 300MG PO SCH (09:49)
[2016-06-20] MEDS: TOLNAFTATE 1% CREAM 15 GM TUBE TP SCH ×2 (09:49→22:48)
[2016-06-20] MEDS: NICOTINE 21 MG/24 HOURS TOPICAL PATCH TD SCH (09:50)
[2016-06-20] MEDS: LIDOCAINE 5% TOPICAL PATCH TP SCH (09:50)
[2016-06-20] MEDS: guaiFENesin/D-METHORPHAN HB 10 ML UNIT-DOSE CUPS PO PRN (14:31)
[2016-06-20] MEDS: GABAPENTIN 400 MG CAPSULE (FP) PO SCH (21:09)
[2016-06-20] MEDS: THIAMINE HCL 100 MG TABLET (FP) PO SCH (21:09)
[2016-06-20] MEDS: BACITRACIN 0.9 GM PACKET TP SCH (21:09)
[2016-06-20] MEDS: traZODone HCL 50 MG TABLET (FP) PO SCH (21:09)
[2016-06-21] MEDS: IBUPROFEN 600 MG TABLET (FP) PO PRN ×2 (06:14→21:26)
[2016-06-21] MEDS: GABAPENTIN 400 MG CAPSULE (FP) PO SCH ×3 (06:14→21:23)
[2016-06-21] MEDS: EMTRICITABINE 200MG/TENOFOVIR 300MG PO SCH (09:45)
[2016-06-21] MEDS: BACITRACIN 0.9 GM PACKET TP SCH ×2 (09:45→21:23)
[2016-06-21] MEDS: EFAVIRENZ 600 MG TABLET PO SCH (09:45)
[2016-06-21] MEDS: LIDOCAINE 5% TOPICAL PATCH TP SCH (09:45)
[2016-06-21] MEDS: POVIDONE-IODINE 10% SOLN 118 ML BOTTLE NR SCH ×2 (09:45→21:24)
[2016-06-21] MEDS: PRENATAL VITAMINS W/ FOLIC ACID TABLET (FP) PO SCH (09:45)
[2016-06-21] MEDS: NICOTINE 21 MG/24 HOURS TOPICAL PATCH TD SCH (09:46)
[2016-06-21] MEDS: TOLNAFTATE 1% CREAM 15 GM TUBE TP SCH ×2 (09:46→21:24)
[2016-06-21] MEDS: guaiFENesin/D-METHORPHAN HB 10 ML UNIT-DOSE CUPS PO PRN (09:47)
[2016-06-21] MEDS: traZODone HCL 50 MG TABLET (FP) PO SCH (21:23)
[2016-06-21] MEDS: THIAMINE HCL 100 MG TABLET (FP) PO SCH (21:24)
[2016-06-22] MEDS: GABAPENTIN 400 MG CAPSULE (FP) PO SCH ×3 (06:06→22:06)
[2016-06-22] MEDS: IBUPROFEN 600 MG TABLET (FP) PO PRN ×2 (06:06→22:07)
[2016-06-22] MEDS: EFAVIRENZ 600 MG TABLET PO SCH (09:51)
[2016-06-22] MEDS: PRENATAL VITAMINS W/ FOLIC ACID TABLET (FP) PO SCH (09:51)
[2016-06-22] MEDS: BACITRACIN 0.9 GM PACKET TP SCH ×2 (09:52→22:05)
[2016-06-22] MEDS: NICOTINE 21 MG/24 HOURS TOPICAL PATCH TD SCH (09:52)
[2016-06-22] MEDS: LIDOCAINE 5% TOPICAL PATCH TP SCH (09:53)
[2016-06-22] MEDS: TOLNAFTATE 1% CREAM 15 GM TUBE TP SCH ×2 (09:54→22:05)
[2016-06-22] MEDS: EMTRICITABINE 200MG/TENOFOVIR 300MG PO SCH (09:54)
[2016-06-22] MEDS: POVIDONE-IODINE 10% SOLN 118 ML BOTTLE NR SCH ×2 (10:42→22:05)
[2016-06-22] MEDS: traZODone HCL 50 MG TABLET (FP) PO SCH (22:05)
[2016-06-22] MEDS: THIAMINE HCL 100 MG TABLET (FP) PO SCH (22:43)
[2016-06-23] MEDS: guaiFENesin/D-METHORPHAN HB 10 ML UNIT-DOSE CUPS PO PRN ×2 (00:25→14:10)
[2016-06-23] MEDS: P-EPHED 60MG/TRIPROLIDI 2.5MG TABLET PO PRN ×2 (00:25→14:11)
[2016-06-23] MEDS: GABAPENTIN 400 MG CAPSULE (FP) PO SCH ×3 (05:56→21:52)
[2016-06-23] MEDS: IBUPROFEN 600 MG TABLET (FP) PO PRN (05:56)
[2016-06-23] MEDS: PRENATAL VITAMINS W/ FOLIC ACID TABLET (FP) PO SCH (09:34)
[2016-06-23] MEDS: BACITRACIN 0.9 GM PACKET TP SCH ×2 (09:34→21:51)
[2016-06-23] MEDS: NICOTINE 21 MG/24 HOURS TOPICAL PATCH TD SCH (09:35)
[2016-06-23] MEDS: EFAVIRENZ 600 MG TABLET PO SCH (09:35)
[2016-06-23] MEDS: POVIDONE-IODINE 10% SOLN 118 ML BOTTLE NR SCH ×2 (09:36→21:54)
[2016-06-23] MEDS: TOLNAFTATE 1% CREAM 15 GM TUBE TP SCH ×2 (09:36→21:54)
[2016-06-23] MEDS: EMTRICITABINE 200MG/TENOFOVIR 300MG PO SCH (09:36)
[2016-06-23] MEDS: LIDOCAINE 5% TOPICAL PATCH TP SCH (09:36)
[2016-06-23] MEDS: THIAMINE HCL 100 MG TABLET (FP) PO SCH (21:51)
[2016-06-23] MEDS: traZODone HCL 50 MG TABLET (FP) PO SCH (21:51)
[2016-06-24] MEDS: GABAPENTIN 400 MG CAPSULE (FP) PO SCH ×3 (06:16→21:47)
[2016-06-24] MEDS: IBUPROFEN 600 MG TABLET (FP) PO PRN (06:16)
[2016-06-24] MEDS: BACITRACIN 0.9 GM PACKET TP SCH ×2 (09:56→21:46)
[2016-06-24] MEDS: PRENATAL VITAMINS W/ FOLIC ACID TABLET (FP) PO SCH (09:57)
[2016-06-24] MEDS: EMTRICITABINE 200MG/TENOFOVIR 300MG PO SCH (09:57)
[2016-06-24] MEDS: EFAVIRENZ 600 MG TABLET PO SCH (09:57)
[2016-06-24] MEDS: LIDOCAINE 5% TOPICAL PATCH TP SCH (09:57)
[2016-06-24] MEDS: NICOTINE 21 MG/24 HOURS TOPICAL PATCH TD SCH (09:58)
[2016-06-24] MEDS: POVIDONE-IODINE 10% SOLN 118 ML BOTTLE NR SCH ×2 (09:58→22:17)
[2016-06-24] MEDS: TOLNAFTATE 1% CREAM 15 GM TUBE TP SCH ×2 (10:05→21:47)
[2016-06-24] MEDS: THIAMINE HCL 100 MG TABLET (FP) PO SCH (21:46)
[2016-06-24] MEDS: traZODone HCL 50 MG TABLET (FP) PO SCH (21:47)
[2016-06-25] MEDS: GABAPENTIN 400 MG CAPSULE (FP) PO SCH ×3 (06:28→21:50)
[2016-06-25] MEDS: IBUPROFEN 600 MG TABLET (FP) PO PRN ×2 (06:28→13:54)
[2016-06-25] MEDS: LIDOCAINE 5% TOPICAL PATCH TP SCH (10:21)
[2016-06-25] MEDS: BACITRACIN 0.9 GM PACKET TP SCH ×2 (10:21→21:49)
[2016-06-25] MEDS: PRENATAL VITAMINS W/ FOLIC ACID TABLET (FP) PO SCH (10:22)
[2016-06-25] MEDS: NICOTINE 21 MG/24 HOURS TOPICAL PATCH TD SCH (10:22)
[2016-06-25] MEDS: EFAVIRENZ 600 MG TABLET PO SCH ×2 (10:23→21:50)
[2016-06-25] MEDS: EMTRICITABINE 200MG/TENOFOVIR 300MG PO SCH ×2 (10:23→22:28)
[2016-06-25] MEDS: TOLNAFTATE 1% CREAM 15 GM TUBE TP SCH ×2 (10:23→21:52)
[2016-06-25] MEDS: POVIDONE-IODINE 10% SOLN 118 ML BOTTLE NR SCH ×2 (10:24→21:52)
[2016-06-25] MEDS: ALBUTEROL SO4 6.7 GM HFA INHALER IH PRN (10:24)
[2016-06-25] MEDS: hydrOXYzine PAMOATE 50 MG CAPSULE (FP) PO PRN (10:25)
[2016-06-25] MEDS: guaiFENesin/D-METHORPHAN HB 10 ML UNIT-DOSE CUPS PO PRN (13:56)
[2016-06-25] MEDS: THIAMINE HCL 100 MG TABLET (FP) PO SCH (21:50)
[2016-06-25] MEDS: traZODone HCL 50 MG TABLET (FP) PO SCH (21:50)
[2016-06-26] MEDS: GABAPENTIN 400 MG CAPSULE (FP) PO SCH ×3 (06:00→21:47)
[2016-06-26] MEDS: IBUPROFEN 600 MG TABLET (FP) PO PRN ×2 (06:00→21:49)
[2016-06-26] MEDS: LIDOCAINE 5% TOPICAL PATCH TP SCH (10:26)
[2016-06-26] MEDS: POVIDONE-IODINE 10% SOLN 118 ML BOTTLE NR SCH ×2 (10:26→21:50)
[2016-06-26] MEDS: NICOTINE 21 MG/24 HOURS TOPICAL PATCH TD SCH (10:26)
[2016-06-26] MEDS: PRENATAL VITAMINS W/ FOLIC ACID TABLET (FP) PO SCH (10:26)
[2016-06-26] MEDS: BACITRACIN 0.9 GM PACKET TP SCH ×2 (10:26→21:48)
[2016-06-26] MEDS: TOLNAFTATE 1% CREAM 15 GM TUBE TP SCH ×2 (10:32→21:50)
--- NOTE | 2016-06-26 13:16 | PN ---
[facility] Progress Note (SOAP) Subjective: c/o right perirectal pimple Objective: 06/26/16 13:13 06/26/16 13:14 Vital Signs Temperature 98.9 F 06/26/16 06:59 Pulse Rate 69 06/26/16 06:59 Respiratory Rate 18 06/26/16 06:59 Blood Pressure 132/90 06/26/16 06:59 O2 Sat by Pulse Oximetry (%) Laboratory Tests 06/15/16 06/15/16 06/15/16 07:00 Unknown Unknown Stool Occult Blood Negative Negative Negative pt aox3 in nad anal -rt petey rectal pimple/small abscess Assessment: 06/26/16 13:15 preirectal absccess Plan: warm compresseses septra ds 1 bid
[2016-06-26] MEDS: traZODone HCL 50 MG TABLET (FP) PO SCH (21:45)
[2016-06-26] MEDS: THIAMINE HCL 100 MG TABLET (FP) PO SCH (21:45)
[2016-06-26] MEDS: EFAVIRENZ 600 MG TABLET PO SCH (21:46)
[2016-06-26] MEDS: SULFAMETHOXAZOLE/TRIMETHOPRIM 800MG/160MG D.S. TABLET PO SCH (21:47)
[2016-06-26] MEDS: guaiFENesin/D-METHORPHAN HB 10 ML UNIT-DOSE CUPS PO PRN (21:48)
[2016-06-26] MEDS: EMTRICITABINE 200MG/TENOFOVIR 300MG PO SCH (21:50)
[2016-06-27] MEDS: GABAPENTIN 400 MG CAPSULE (FP) PO SCH ×3 (06:37→21:27)
[2016-06-27] MEDS: LIDOCAINE 5% TOPICAL PATCH TP SCH (09:55)
[2016-06-27] MEDS: NICOTINE 21 MG/24 HOURS TOPICAL PATCH TD SCH (09:55)
[2016-06-27] MEDS: SULFAMETHOXAZOLE/TRIMETHOPRIM 800MG/160MG D.S. TABLET PO SCH ×2 (09:55→21:27)
[2016-06-27] MEDS: PRENATAL VITAMINS W/ FOLIC ACID TABLET (FP) PO SCH (09:55)
[2016-06-27] MEDS: BACITRACIN 0.9 GM PACKET TP SCH ×2 (09:56→22:13)
[2016-06-27] MEDS: TOLNAFTATE 1% CREAM 15 GM TUBE TP SCH ×2 (09:56→22:13)
[2016-06-27] MEDS: POVIDONE-IODINE 10% SOLN 118 ML BOTTLE NR SCH ×2 (09:56→22:13)
[2016-06-27] MEDS: IBUPROFEN 600 MG TABLET (FP) PO PRN ×2 (09:56→21:28)
[2016-06-27] MEDS: guaiFENesin/D-METHORPHAN HB 10 ML UNIT-DOSE CUPS PO PRN (09:57)
--- NOTE | 2016-06-27 10:29 | PN ---
Psychiatric Progress Note Vital Signs: Vital Signs Period Temp Pulse Resp BP Sys/Hyman Pulse Ox Last 24 Hr 97.7 F 69 16-18 131/81 Date of Session: 06/27/16 Chief Complaint:: Feeling drowsy HPI: Patient adressing Alcohol, Opoid and Cocaine Dependence comorbid with Nicotine Dependence and Substance-Induced Anxiety Disorder ROS: HIV/AIDS, Asthma, Backache, Oral thrush Current Medications: Active Medications Generic Name Dose Route Start Last Admin Trade Name Freq PRN Reason Stop Dose Admin Acetaminophen 650 mg 06/12/16 14:56 Tylenol - PO Q4H PRN FEVER OR PAIN Al Hydroxide/Mg Hydroxide 30 ml 06/12/16 14:56 Mylanta Oral Suspension - PO Q6H PRN DYSPEPSIA Albuterol Sulfate 2 puff 06/12/16 14:56 06/25/16 10:24 Ventolin Hfa Inhaler - IH 2 puff Q4H PRN Administration ASTHMA Bacitracin 0.9 gm 06/20/16 22:00 06/27/16 09:56 Bacitracin - TP 0.9 gm BID BESSIE Administration Diphenhydramine HCl 50 mg 06/12/16 14:56 Benadryl - PO HSMR1 PRN FOR ITCHING Efavirenz 600 mg 06/25/16 22:00 06/26/16 21:46 Sustiva - PO 600 mg HS BESSIE Administration Emtricitabine/Tenofovir 1 tab 06/25/16 22:00 06/26/16 21:50 Truvada PO 1 tab HS BESSIE Administration Eucalyptus/Menthol/Phenol/Sorbitol 1 each 06/12/16 14:56 06/15/16 05:54 Cepastat Lozenge - MM 1 each Q4H PRN Administration SORE THROAT Gabapentin 400 mg 06/20/16 22:00 06/27/16 06:37 Neurontin - PO 400 mg TID BESSIE Administration Guaifenesin 10 ml 06/12/16 14:56 06/27/16 09:57 Robitussin Dm - PO 10 ml Q6H PRN Administration COUGH Hydroxyzine Pamoate 50 mg 06/19/16 14:28 06/25/16 10:25 Vistaril - PO 50 mg Q4H PRN Administration ANXIETY Ibuprofen 600 mg 06/14/16 15:46 06/27/16 09:56 Motrin - PO 600 mg Q6H PRN Administration PAIN Lidocaine 1 patch 06/15/16 10:00 06/27/16 09:55 Lidoderm Patch - TP Not Given DAILY BESSIE Loperamide HCl 4 mg 06/12/16 14:56 Imodium - PO Q6H PRN DIARRHEA Magnesium Hydroxide 30 ml 06/12/16 14:56 06/20/16 12:50 Milk Of Magnesia - PO 30 ml DAILY PRN Administration CONSTIPATION Nicotine 21 mg 06/13/16 10:00 06/27/16 09:55 Nicoderm Patch - TD 21 mg DAILY BESSIE Administration Nicotine Polacrilex 4 mg 06/12/16 14:56 Nicorette Gum - BUC Q2H PRN NICOTINE REPLACEMENT RX Povidone Iodine 1 applic 06/12/16 22:00 06/27/16 09:56 Betadine 10% Solution - NR 1 applic BID BESSIE Administration Multivit/Folic Acid/Iron 1 tab 06/13/16 10:00 06/27/16 09:55 Vitamins (Sjr) - PO 1 tab DAILY BESSIE Administration Pseudoephedrine/Triprolidine 1 combo 06/12/16 14:56 06/23/16 14:11 Actifed - PO 1 combo TID PRN Administration NASAL CONGESTION Thiamine HCl 100 mg 06/12/16 22:00 06/26/16 21:45 Vitamin B1 - PO 100 mg HS BESSIE Administration Tolnaftate 1 applic 06/12/16 22:00 06/27/16 09:56 Tinactin 1% Cream - TP Not Given BID BESSIE Trazodone HCl 150 mg 06/16/16 22:00 06/26/16 21:45 Desyrel - PO 100 mg HS BESSIE Administration Trimethoprim/Sulfamethoxazole 1 each 06/26/16 22:00 06/27/16 09:55 Bactrim Ds - PO 1 each BID BESSIE Administration Medication(s) Change(s): Decrease Trazadone dosage to 100 mg po HS Current Side Effect: No Lab tests ordered: Yes Lab tests reviewed: Yes Provider note:: Patient reports experiencing difficulty waking up in the morning and feeling sleepy, drowsy during the day, interfering with his functioning, participation in unit group activities. He is on Trazadone 150 mg po HS and requests that medication dosage be reduced Total face to face time:: 25 Mental Status Exam - Mental Status Exam Alert and Oriented to: Time, Person Cognitive Function: Fair Patient Appearance: Well Groomed Mood: Hopeful, Euthymic Affect: Appropriate Patient Behavior: Sedated Speech Pattern: Clear Voice Loudness: Normal Thought Process: Intact Thought Disorder: Not Present Hallucinations: Denies Suicidal Ideation: Denies Homicidal Ideation: Denies Insight/Judgement: Fair Sleep: Fair Appetite: Good Muscle strength/Tone: Normal Gait/Station: Normal Psychiatric Treatment Plan - Problem List (1) Alcohol dependence Current Visit: Yes (2) Opioid dependence with withdrawal Current Visit: No (3) Cocaine dependence Current Visit: No (4) Nicotine dependence, cigarettes, uncomplicated Current Visit: No (5) Substance-induced anxiety disorder Current Visit: Yes (6) Acquired immune deficiency syndrome (AIDS) Current Visit: No Comment: not taking any medication at the moment (7) Arthritis Current Visit: No (8) Asthma Current Visit: No Qualifiers: Asthma severity: mild intermittent Asthma complication type: uncomplicated Qualified Code(s): J45.20 - Mild intermittent asthma, uncomplicated (9) Back ache Current Visit: No Qualifiers: Back pain location: back pain in unspecified location Back pain laterality: unspecified (10) Hepatitis C carrier Current Visit: No (11) Oral thrush Current Visit: No Initial treatment plan: 1) Discontinue Trazadone 150 mg po HS. 2) Start Trazadone 100 mg po HS prn for insomnia. 3) Monitor progress
[2016-06-27] MEDS: EMTRICITABINE 200MG/TENOFOVIR 300MG PO SCH (21:25)
[2016-06-27] MEDS: traZODone HCL 50 MG TABLET (FP) PO SCH (21:25)
[2016-06-27] MEDS: THIAMINE HCL 100 MG TABLET (FP) PO SCH (21:25)
[2016-06-27] MEDS: EFAVIRENZ 600 MG TABLET PO SCH (21:26)
[2016-06-28] MEDS: GABAPENTIN 400 MG CAPSULE (FP) PO SCH ×3 (06:17→21:47)
[2016-06-28] MEDS: IBUPROFEN 600 MG TABLET (FP) PO PRN (10:04)
[2016-06-28] MEDS: SULFAMETHOXAZOLE/TRIMETHOPRIM 800MG/160MG D.S. TABLET PO SCH ×2 (10:04→21:47)
[2016-06-28] MEDS: PRENATAL VITAMINS W/ FOLIC ACID TABLET (FP) PO SCH (10:04)
[2016-06-28] MEDS: BACITRACIN 0.9 GM PACKET TP SCH ×2 (10:04→21:47)
[2016-06-28] MEDS: POVIDONE-IODINE 10% SOLN 118 ML BOTTLE NR SCH ×2 (10:05→21:49)
[2016-06-28] MEDS: TOLNAFTATE 1% CREAM 15 GM TUBE TP SCH ×2 (10:05→21:49)
[2016-06-28] MEDS: LIDOCAINE 5% TOPICAL PATCH TP SCH (10:05)
[2016-06-28] MEDS: NICOTINE 21 MG/24 HOURS TOPICAL PATCH TD SCH (10:05)
[2016-06-28] MEDS: traZODone HCL 50 MG TABLET (FP) PO SCH (21:47)
[2016-06-28] MEDS: EFAVIRENZ 600 MG TABLET PO SCH (21:47)
[2016-06-28] MEDS: THIAMINE HCL 100 MG TABLET (FP) PO SCH (21:47)
[2016-06-28] MEDS: EMTRICITABINE 200MG/TENOFOVIR 300MG PO SCH (21:49)
[2016-06-29] MEDS: GABAPENTIN 400 MG CAPSULE (FP) PO SCH ×3 (06:55→21:27)
[2016-06-29] MEDS: POVIDONE-IODINE 10% SOLN 118 ML BOTTLE NR SCH ×2 (09:56→21:28)
[2016-06-29] MEDS: PRENATAL VITAMINS W/ FOLIC ACID TABLET (FP) PO SCH (09:56)
[2016-06-29] MEDS: BACITRACIN 0.9 GM PACKET TP SCH ×2 (09:56→21:26)
[2016-06-29] MEDS: SULFAMETHOXAZOLE/TRIMETHOPRIM 800MG/160MG D.S. TABLET PO SCH ×2 (09:56→21:27)
[2016-06-29] MEDS: NICOTINE 21 MG/24 HOURS TOPICAL PATCH TD SCH (10:50)
[2016-06-29] MEDS: TOLNAFTATE 1% CREAM 15 GM TUBE TP SCH ×2 (10:50→21:28)
[2016-06-29] MEDS: LIDOCAINE 5% TOPICAL PATCH TP SCH (10:50)
[2016-06-29] MEDS: IBUPROFEN 600 MG TABLET (FP) PO PRN (14:25)
[2016-06-29] MEDS: THIAMINE HCL 100 MG TABLET (FP) PO SCH (21:26)
[2016-06-29] MEDS: traZODone HCL 50 MG TABLET (FP) PO SCH (21:26)
[2016-06-29] MEDS: EFAVIRENZ 600 MG TABLET PO SCH (21:27)
[2016-06-29] MEDS: EMTRICITABINE 200MG/TENOFOVIR 300MG PO SCH (21:28)
[2016-06-30] MEDS: IBUPROFEN 600 MG TABLET (FP) PO PRN ×2 (07:01→21:45)
[2016-06-30] MEDS: GABAPENTIN 400 MG CAPSULE (FP) PO SCH ×3 (07:02→21:45)
[2016-06-30] MEDS: PRENATAL VITAMINS W/ FOLIC ACID TABLET (FP) PO SCH (10:05)
[2016-06-30] MEDS: SULFAMETHOXAZOLE/TRIMETHOPRIM 800MG/160MG D.S. TABLET PO SCH ×2 (10:06→21:44)
[2016-06-30] MEDS: NICOTINE 21 MG/24 HOURS TOPICAL PATCH TD SCH (10:06)
[2016-06-30] MEDS: BACITRACIN 0.9 GM PACKET TP SCH ×2 (10:06→21:46)
[2016-06-30] MEDS: POVIDONE-IODINE 10% SOLN 118 ML BOTTLE NR SCH ×2 (10:07→21:46)
[2016-06-30] MEDS: LIDOCAINE 5% TOPICAL PATCH TP SCH (10:07)
[2016-06-30] MEDS: TOLNAFTATE 1% CREAM 15 GM TUBE TP SCH ×2 (10:09→23:05)
[2016-06-30] MEDS: EFAVIRENZ 600 MG TABLET PO SCH (21:44)
[2016-06-30] MEDS: traZODone HCL 50 MG TABLET (FP) PO SCH (21:44)
[2016-06-30] MEDS: THIAMINE HCL 100 MG TABLET (FP) PO SCH (21:45)
[2016-06-30] MEDS: EMTRICITABINE 200MG/TENOFOVIR 300MG PO SCH (21:45)
[2016-07-01] MEDS: ALBUTEROL SO4 6.7 GM HFA INHALER IH PRN (00:02)
[2016-07-01] MEDS: GABAPENTIN 400 MG CAPSULE (FP) PO SCH ×3 (07:08→21:50)
[2016-07-01] MEDS: BACITRACIN 0.9 GM PACKET TP SCH ×2 (09:46→23:00)
[2016-07-01] MEDS: SULFAMETHOXAZOLE/TRIMETHOPRIM 800MG/160MG D.S. TABLET PO SCH ×2 (09:46→21:50)
[2016-07-01] MEDS: POVIDONE-IODINE 10% SOLN 118 ML BOTTLE NR SCH ×2 (09:46→23:00)
[2016-07-01] MEDS: TOLNAFTATE 1% CREAM 15 GM TUBE TP SCH ×2 (09:47→23:00)
[2016-07-01] MEDS: IBUPROFEN 600 MG TABLET (FP) PO PRN ×2 (09:47→21:49)
[2016-07-01] MEDS: LIDOCAINE 5% TOPICAL PATCH TP SCH (09:47)
[2016-07-01] MEDS: PRENATAL VITAMINS W/ FOLIC ACID TABLET (FP) PO SCH (09:47)
[2016-07-01] MEDS: NICOTINE 21 MG/24 HOURS TOPICAL PATCH TD SCH (09:47)
[2016-07-01] MEDS: guaiFENesin/D-METHORPHAN HB 10 ML UNIT-DOSE CUPS PO PRN (09:48)
[2016-07-01] MEDS: EFAVIRENZ 600 MG TABLET PO SCH (21:49)
[2016-07-01] MEDS: traZODone HCL 50 MG TABLET (FP) PO SCH (21:49)
[2016-07-01] MEDS: EMTRICITABINE 200MG/TENOFOVIR 300MG PO SCH (21:50)
[2016-07-01] MEDS: THIAMINE HCL 100 MG TABLET (FP) PO SCH (21:50)
[2016-07-02] MEDS: GABAPENTIN 400 MG CAPSULE (FP) PO SCH ×3 (07:09→22:04)
[2016-07-02] MEDS: SULFAMETHOXAZOLE/TRIMETHOPRIM 800MG/160MG D.S. TABLET PO SCH ×2 (09:34→22:04)
[2016-07-02] MEDS: POVIDONE-IODINE 10% SOLN 118 ML BOTTLE NR SCH ×2 (09:34→22:05)
[2016-07-02] MEDS: PRENATAL VITAMINS W/ FOLIC ACID TABLET (FP) PO SCH (09:34)
[2016-07-02] MEDS: LIDOCAINE 5% TOPICAL PATCH TP SCH (09:34)
[2016-07-02] MEDS: IBUPROFEN 600 MG TABLET (FP) PO PRN ×2 (09:36→14:58)
[2016-07-02] MEDS: TOLNAFTATE 1% CREAM 15 GM TUBE TP SCH ×2 (10:43→22:05)
[2016-07-02] MEDS: BACITRACIN 0.9 GM PACKET TP SCH ×2 (10:43→22:04)
[2016-07-02] MEDS: NICOTINE 21 MG/24 HOURS TOPICAL PATCH TD SCH (10:43)
[2016-07-02] MEDS: EFAVIRENZ 600 MG TABLET PO SCH (22:04)
[2016-07-02] MEDS: traZODone HCL 50 MG TABLET (FP) PO SCH (22:04)
[2016-07-02] MEDS: EMTRICITABINE 200MG/TENOFOVIR 300MG PO SCH (22:06)
[2016-07-02] MEDS: THIAMINE HCL 100 MG TABLET (FP) PO SCH (22:07)
[2016-07-02] MEDS: guaiFENesin/D-METHORPHAN HB 10 ML UNIT-DOSE CUPS PO PRN (22:08)
[2016-07-03] MEDS: GABAPENTIN 400 MG CAPSULE (FP) PO SCH ×3 (06:30→21:49)
--- NOTE | 2016-07-03 06:52 | PN ---
Psychiatric Progress Note Vital Signs: Vital Signs Period Temp Pulse Resp BP Sys/Hyman Pulse Ox Last 24 Hr 97.2 F 76 16-18 110/77 Date of Session: 07/04/16 Chief Complaint:: Psychiatrist Discharge Note HPI: Patient adressing Alcohol, Opoid and Cocaine Dependence comorbid with Nicotine Dependence and Substance-Induced Anxiety Disorder ROS: HIV/AIDS, Asthma, Backache, Oral thrush were medically managed Current Medications: Active Medications Generic Name Dose Route Start Last Admin Trade Name Freq PRN Reason Stop Dose Admin Acetaminophen 650 mg 06/12/16 14:56 Tylenol - PO Q4H PRN FEVER OR PAIN Al Hydroxide/Mg Hydroxide 30 ml 06/12/16 14:56 Mylanta Oral Suspension - PO Q6H PRN DYSPEPSIA Albuterol Sulfate 2 puff 06/12/16 14:56 07/01/16 00:02 Ventolin Hfa Inhaler - IH 2 puff Q4H PRN Administration ASTHMA Bacitracin 0.9 gm 06/20/16 22:00 07/02/16 22:04 Bacitracin - TP 0.9 gm BID BESSIE Administration Diphenhydramine HCl 50 mg 06/12/16 14:56 Benadryl - PO HSMR1 PRN FOR ITCHING Efavirenz 600 mg 06/25/16 22:00 07/02/16 22:04 Sustiva - PO 600 mg HS BESSIE Administration Emtricitabine/Tenofovir 1 tab 06/25/16 22:00 07/02/16 22:06 Truvada PO 1 tab HS BESSIE Administration Eucalyptus/Menthol/Phenol/Sorbitol 1 each 06/12/16 14:56 06/15/16 05:54 Cepastat Lozenge - MM 1 each Q4H PRN Administration SORE THROAT Gabapentin 400 mg 06/20/16 22:00 07/03/16 06:30 Neurontin - PO 400 mg TID BESSIE Administration Guaifenesin 10 ml 06/12/16 14:56 07/02/16 22:08 Robitussin Dm - PO 10 ml Q6H PRN Administration COUGH Hydroxyzine Pamoate 50 mg 06/19/16 14:28 06/25/16 10:25 Vistaril - PO 50 mg Q4H PRN Administration ANXIETY Ibuprofen 600 mg 06/14/16 15:46 07/02/16 14:58 Motrin - PO 600 mg Q6H PRN Administration PAIN Lidocaine 1 patch 06/15/16 10:00 07/02/16 09:34 Lidoderm Patch - TP Not Given DAILY BESSIE Loperamide HCl 4 mg 06/12/16 14:56 Imodium - PO Q6H PRN DIARRHEA Magnesium Hydroxide 30 ml 06/12/16 14:56 06/20/16 12:50 Milk Of Magnesia - PO 30 ml DAILY PRN Administration CONSTIPATION Nicotine 21 mg 06/13/16 10:00 07/02/16 10:43 Nicoderm Patch - TD Not Given DAILY BESSIE Nicotine Polacrilex 4 mg 06/12/16 14:56 Nicorette Gum - BUC Q2H PRN NICOTINE REPLACEMENT RX Povidone Iodine 1 applic 06/12/16 22:00 07/02/16 22:05 Betadine 10% Solution - NR Not Given BID BESSIE Multivit/Folic Acid/Iron 1 tab 06/13/16 10:00 07/02/16 09:34 Vitamins (Sjr) - PO 1 tab DAILY BESSIE Administration Pseudoephedrine/Triprolidine 1 combo 06/12/16 14:56 06/23/16 14:11 Actifed - PO 1 combo TID PRN Administration NASAL CONGESTION Thiamine HCl 100 mg 06/12/16 22:00 07/02/16 22:07 Vitamin B1 - PO 100 mg HS BESSIE Administration Tolnaftate 1 applic 06/12/16 22:00 07/02/16 22:05 Tinactin 1% Cream - TP Not Given BID BESSIE Trazodone HCl 150 mg 06/16/16 22:00 07/02/16 22:04 Desyrel - PO 150 mg HS BESSIE Administration Trimethoprim/Sulfamethoxazole 1 each 06/26/16 22:00 07/02/16 22:04 Bactrim Ds - PO 1 each BID BESSIE Administration Current Side Effect: No Lab tests ordered: Yes Lab tests reviewed: Yes Provider note:: Patient will complete this program on 07/05/16. He has met his treatment goals and will continue to address his issues in outpatient treatment at [facility]. Told assembly instructions writer that from his participation in this program, he has learned the importance of establishing a sober network in order to maintain abstinence. He responded well to Trazadone 100 mg po HS. Script for that medication will be electronically transmitted to [facility] at [address] [place] [id number]. He is stable for discharge on 07/05/16 Total face to face time:: 35 Mental Status Exam - Mental Status Exam Alert and Oriented to: Time, Place, Person Cognitive Function: Fair Patient Appearance: Well Groomed Mood: Hopeful, Euthymic Affect: Appropriate Patient Behavior: Cooperative Speech Pattern: Clear Voice Loudness: Normal Thought Process: Intact, Goal Oriented Hallucinations: Denies Suicidal Ideation: Denies Homicidal Ideation: Denies Insight/Judgement: Fair Sleep: Fair Appetite: Good Muscle strength/Tone: Normal Gait/Station: Normal Psychiatric Treatment Plan - Problem List (1) Alcohol dependence Current Visit: Yes (2) Opioid dependence with withdrawal Current Visit: No (3) Cocaine dependence Current Visit: No (4) Nicotine dependence, cigarettes, uncomplicated Current Visit: No (5) Substance-induced anxiety disorder Current Visit: Yes (6) Acquired immune deficiency syndrome (AIDS) Current Visit: No Comment: not taking any medication at the moment (7) Arthritis Current Visit: No (8) Asthma Current Visit: No Qualifiers: Asthma severity: mild intermittent Asthma complication type: uncomplicated Qualified Code(s): J45.20 - Mild intermittent asthma, uncomplicated (9) Back ache Current Visit: No Qualifiers: Back pain location: back pain in unspecified location Back pain laterality: unspecified (10) Hepatitis C carrier Current Visit: No (11) Oral thrush Current Visit: No Initial treatment plan: Patient will be discharged tomorrow and referred to [facility] in [place] outpatient treatment
[2016-07-03] MEDS: BACITRACIN 0.9 GM PACKET TP SCH ×2 (10:20→21:50)
[2016-07-03] MEDS: LIDOCAINE 5% TOPICAL PATCH TP SCH (10:21)
[2016-07-03] MEDS: PRENATAL VITAMINS W/ FOLIC ACID TABLET (FP) PO SCH (10:21)
[2016-07-03] MEDS: POVIDONE-IODINE 10% SOLN 118 ML BOTTLE NR SCH ×2 (10:21→22:47)
[2016-07-03] MEDS: TOLNAFTATE 1% CREAM 15 GM TUBE TP SCH ×2 (10:21→22:47)
[2016-07-03] MEDS: SULFAMETHOXAZOLE/TRIMETHOPRIM 800MG/160MG D.S. TABLET PO SCH ×2 (10:21→21:49)
[2016-07-03] MEDS: NICOTINE 21 MG/24 HOURS TOPICAL PATCH TD SCH (10:21)
[2016-07-03] MEDS: THIAMINE HCL 100 MG TABLET (FP) PO SCH (21:48)
[2016-07-03] MEDS: traZODone HCL 50 MG TABLET (FP) PO SCH (21:48)
[2016-07-03] MEDS: EFAVIRENZ 600 MG TABLET PO SCH (21:49)
[2016-07-03] MEDS: IBUPROFEN 600 MG TABLET (FP) PO PRN (21:50)
[2016-07-03] MEDS: EMTRICITABINE 200MG/TENOFOVIR 300MG PO SCH (22:48)
[2016-07-04 05:56] VITALS: BP 112/72; PULSE 78; TEMP 98.5
[2016-07-04] MEDS: GABAPENTIN 400 MG CAPSULE (FP) PO SCH ×3 (05:57→22:30)
[2016-07-04] MEDS: NICOTINE 21 MG/24 HOURS TOPICAL PATCH TD SCH (09:34)
[2016-07-04] MEDS: TOLNAFTATE 1% CREAM 15 GM TUBE TP SCH ×2 (09:34→23:46)
[2016-07-04] MEDS: BACITRACIN 0.9 GM PACKET TP SCH ×2 (09:34→23:46)
[2016-07-04] MEDS: PRENATAL VITAMINS W/ FOLIC ACID TABLET (FP) PO SCH (09:34)
[2016-07-04] MEDS: LIDOCAINE 5% TOPICAL PATCH TP SCH (09:34)
[2016-07-04] MEDS: POVIDONE-IODINE 10% SOLN 118 ML BOTTLE NR SCH ×2 (09:34→23:46)
[2016-07-04] MEDS: SULFAMETHOXAZOLE/TRIMETHOPRIM 800MG/160MG D.S. TABLET PO SCH ×2 (09:34→22:30)
[2016-07-04] MEDS: IBUPROFEN 600 MG TABLET (FP) PO PRN (14:20)
[2016-07-04] MEDS: EMTRICITABINE 200MG/TENOFOVIR 300MG PO SCH (22:28)
[2016-07-04] MEDS: EFAVIRENZ 600 MG TABLET PO SCH (22:29)
[2016-07-04] MEDS: traZODone HCL 50 MG TABLET (FP) PO SCH (22:29)
[2016-07-04] MEDS: THIAMINE HCL 100 MG TABLET (FP) PO SCH (22:30)
[2016-07-04] MEDS: guaiFENesin/D-METHORPHAN HB 10 ML UNIT-DOSE CUPS PO PRN (22:31)
[2016-07-05] MEDS: GABAPENTIN 400 MG CAPSULE (FP) PO SCH (06:27)
[2016-07-05] MEDS: guaiFENesin/D-METHORPHAN HB 10 ML UNIT-DOSE CUPS PO PRN (09:00)
== END 2016-07-05 10:25 | disposition home or self-care (01) | DRG 772 ==
LOC: YASAS 11:01 → Y3W 11:02
PROVIDERS: ADMIT Psychiatry & Neurology Psychiatry; ATTEND Psychiatry & Neurology Psychiatry
PROC: HZ42ZZZ Group Counseling for Substance Abuse Treatment, Cognitive-Behavioral (ICD-10-PCS; principal; 2016-07-05)
DX: F11.23 Opioid dependence with withdrawal (principal); F10.20 Alcohol dependence, uncomplicated; F14.20 Cocaine dependence, uncomplicated; F17.210 Nicotine dependence, cigarettes, uncomplicated; F19.280 Other psychoactive substance dependence with psychoactive substance-induced anxiety disorder; B20 Human immunodeficiency virus [HIV] disease; J45.20 Mild intermittent asthma, uncomplicated; M12.9 Arthropathy, unspecified; M54.89 Other dorsalgia; B37.0 Candidal stomatitis; B19.20 Unspecified viral hepatitis C without hepatic coma
CPT/HCPCS: 82272

== ENCOUNTER 2016-11-12 12:37 | Inpatient (IN) | payer OTHER ==
[2016-11-12 13:09] VITALS: BMI 19.8
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
[2016-11-12] MEDS ORDERED: hydrOXYzine PAMOATE 50 MG CAPSULE (FP) PO PRN (16:26)
[2016-11-12] MEDS ORDERED: MAGNESIUM CITRATE 300 ML BOTTLE PO PRN (16:26)
[2016-11-12] MEDS ORDERED: MAG HYDROX/AL HYDROX/SIMETH 30 ML UNIT-DOSE CUP PO PRN (16:26)
[2016-11-12] MEDS ORDERED: guaiFENesin/D-METHORPHAN HB 10 ML UNIT-DOSE CUPS PO PRN (16:26)
[2016-11-12] MEDS ORDERED: ACETAMINOPHEN 325 MG TABLET (FP) PO PRN (16:26)
[2016-11-12] MEDS ORDERED: LOPERAMIDE HCL 2 MG CAPSULE PO PRN (16:26)
[2016-11-12] MEDS ORDERED: chlordiazePOXIDE HCL 25 MG CAPSULE PO PRN (16:26)
[2016-11-12] MEDS ORDERED: MENTHOL/PHENOL 1 EACH UD MM PRN (16:26)
[2016-11-12] MEDS ORDERED: MAGNESIUM HYDROX 2400MG/30ML ORAL SUSPENSION 30 ML CUP PO PRN (16:26)
[2016-11-12] MEDS ORDERED: P-EPHED 60MG/TRIPROLIDI 2.5MG TABLET PO PRN (16:26)
[2016-11-12] MEDS ORDERED: ALBUTEROL SO4 6.7 GM HFA INHALER IH PRN (16:29)
[2016-11-12] MEDS ORDERED: chlordiazePOXIDE HCL 25 MG CAPSULE PO ONE (17:00)
[2016-11-12 21:09] LABS: URINE APPEARANCE CLEAR; URINE BILIRUBIN NEGATIVE (NEGATIVE); URINE BLOOD NEGATIVE (NEGATIVE); URINE COLOR YELLOW; URINE GLUCOSE (UA) NEGATIVE (NEGATIVE); URINE KETONE NEGATIVE (NEGATIVE); URINE LEUK ESTERASE NEGATIVE (NEGATIVE); URINE NITRITE NEGATIVE (NEGATIVE); URINE UROBILINOGEN 2.0 E.U/dl E.U./dl (0.2-1.0)
[2016-11-12 21:15] LABS: URINE PROTEIN 1+ (NEGATIVE)
[2016-11-12 21:17] LABS: URINE HYALINE CAST 2 /lpf; URINE MUCUS MANY; URINE RBC 4 /hpf (0-3); URINE WBC 2 /hpf (3-5)
[2016-11-12] MEDS: chlordiazePOXIDE HCL 25 MG CAPSULE PO SCH (22:09)
[2016-11-12] MEDS: GABAPENTIN 300 MG CAPSULE (FP) PO SCH (22:10)
[2016-11-12] MEDS: THIAMINE HCL 100 MG TABLET (FP) PO SCH (22:10)
[2016-11-13] MEDS: GABAPENTIN 300 MG CAPSULE (FP) PO SCH ×3 (06:07→23:28)
[2016-11-13] MEDS: chlordiazePOXIDE HCL 25 MG CAPSULE PO SCH ×4 (06:07→23:29)
[2016-11-13] MEDS ORDERED: BACITRACIN 0.9 GM PACKET ONE (08:50)
--- NOTE | 2016-11-13 09:23 | PN ---
S CIWA - CIWA Score Nausea/Vomitin Muscle Tremors: 3 Anxiety: 3 Agitation: 3 Paroxysmal Sweats: 1-Minimal Palms Moist Orientation: 0-Oriented Tacttile Disturbances: 1-Very Mild Itch/Numbness Auditory Disturbances: 1-Very Mild Visual Disturbances: 1-Very Mild Sensitivity Headache: 2-Mild CIWA-Ar Total Score: 18 BHS Progress Note (SOAP) Subjective: ALERT,IRRITABLE,ANXIOUS,INTERRUPTED SLEEP,TREMOR,PAIN IN HE BODY Objective: 11/13/16 09:21 Vital Signs Temperature 97.7 F 11/13/16 06:00 Pulse Rate 62 11/13/16 06:00 Respiratory Rate 18 11/13/16 06:00 Blood Pressure 136/78 11/13/16 06:00 O2 Sat by Pulse Oximetry (%) 11/13/16 09:21 EKG SINUS BRADYCARDIA 51/MIN NO CHEST PAIN,NO SOB,NO DIZZINESS 11/13/16 09:22 Assessment: WITHDRAWAL SYMPTOM Plan: CONTINUE DETOX
[2016-11-13] MEDS ORDERED: METHADONE HCL 10 MG TABLET PO ONE (09:27)
[2016-11-13 10:07] LABS: MCH 31.2 pg (25.7-33.7); MCHC 33.5 g/dl (32.0-35.9); MEAN PLT VOLUME 9.9 fl (7.5-11.1); PLATELET COUNT 212 K/MM3 (134-434); RDW 13.2 % (11.9-15.9); WHITE BLOOD COUNT 4.5 K/mm3 (4.0-10.0)
[2016-11-13 10:55] LABS: ALBUMIN 3.3 g/dl (3.4-5.0); ALK PHOS 82 U/L (45-117); ANION GAP 10 (8-16); BILIRUBIN,TOTAL 0.6 mg/dL (0.2-1.0); CALCIUM 8.5 mg/dL (8.5-10.1); CO2 23 mmol/L (21-32); COCKROFT - GAULT 63.88; GLUCOSE,RANDOM 93 mg/dL (74-106); SGOT/AST 21 U/L (15-37); SGPT/ALT 21 U/L (12-78); TOT PROT 7.6 g/dl (6.4-8.2)
--- NOTE | 2016-11-13 10:59 | EKG ---
Test Reason : Blood Pressure : / mmHG Vent. Rate : 051 BPM Atrial Rate : 051 BPM P-R Int : 164 ms QRS Dur : 092 ms QT Int : 472 ms P-R-T Axes : 063 064 051 degrees QTc Int : 435 ms SINUS BRADYCARDIA OTHERWISE NORMAL ECG WHEN COMPARED WITH ECG OF 07-JUN-2016 13:19, NO SIGNIFICANT CHANGE WAS FOUND Confirmed by VINCENZO SHANKS MD ([id number]) on 11/13/2016 10:59:17 AM Referred By: Yair Phillip Confirmed By:VINCENZO SHANKS MD
[2016-11-13] MEDS: BACITRACIN 30 GM TUBE TOPICAL OINTMENT TP SCH (11:06)
[2016-11-13] MEDS: PRENATAL VITAMINS W/ FOLIC ACID TABLET (FP) PO SCH (11:06)
[2016-11-13] MEDS: SULFAMETHOXAZOLE/TRIMETHOPRIM 800MG/160MG D.S. TABLET PO SCH (11:07)
[2016-11-13] MEDS: IBUPROFEN 400 MG TABLET (FP) PO PRN (11:16)
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
--- NOTE | 2016-11-13 20:00 | PN ---
[facility] Progress Note Note: 61 years old male admitted for alcohol detox, medical history of hiv, neuropathy , anemia, asthma. observed patient wondering on the [address], slurred speech, lethargic, disoriented to time, place, person, incoherent bun 25, ambulance was called information provided to er may return for detox or rehab when medically stable
[2016-11-13] MEDS: THIAMINE HCL 100 MG TABLET (FP) PO SCH (23:29)
[2016-11-14] MEDS: chlordiazePOXIDE HCL 25 MG CAPSULE PO SCH ×3 (05:23→17:36)
[2016-11-14] MEDS: METHADONE HCL 10 MG TABLET PO SCH (05:23)
[2016-11-14] MEDS: GABAPENTIN 300 MG CAPSULE (FP) PO SCH ×3 (05:24→22:19)
[2016-11-14] MEDS: IBUPROFEN 400 MG TABLET (FP) PO PRN ×3 (05:26→22:18)
[2016-11-14] MEDS ORDERED: BACITRACIN 0.9 GM PACKET ONE (09:17)
--- NOTE | 2016-11-14 10:33 | PN ---
S CIWA - CIWA Score Nausea/Vomitin Muscle Tremors: 3 Anxiety: 2 Agitation: 2 Paroxysmal Sweats: 1-Minimal Palms Moist Orientation: 0-Oriented Tacttile Disturbances: 1-Very Mild Itch/Numbness Auditory Disturbances: 1-Very Mild Visual Disturbances: 1-Very Mild Sensitivity Headache: 2-Mild CIWA-Ar Total Score: 16 S Progress Note (SOAP) Subjective: alert,irritable,anxious,interrupted sleep,tremor Objective: 11/14/16 10:32 Vital Signs Temperature 98.1 F 11/14/16 09:39 Pulse Rate 110 H 11/14/16 09:39 Respiratory Rate 20 11/14/16 09:39 Blood Pressure 102/64 11/14/16 09:39 O2 Sat by Pulse Oximetry (%) Laboratory Last Values WBC 4.5 K/mm3 (4.0-10.0) D 11/13/16 06:00 RBC 3.58 M/mm3 (4.00-5.60) L 11/13/16 06:00 Hgb 11.2 GM/dL (11.7-16.9) L D 11/13/16 06:00 Hct 33.3 % (35.4-49) L 11/13/16 06:00 MCV 93.0 fl (80-96) 11/13/16 06:00 MCHC 33.5 g/dl (32.0-35.9) 11/13/16 06:00 RDW 13.2 % (11.9-15.9) D 11/13/16 06:00 Plt Count 212 K/MM3 (134-434) 11/13/16 06:00 MPV 9.9 fl (7.5-11.1) 11/13/16 06:00 Sodium 140 mmol/L (136-145) 11/13/16 06:00 Potassium 4.4 mmol/L (3.5-5.1) D 11/13/16 06:00 Chloride 107 mmol/L (98-107) 11/13/16 06:00 Carbon Dioxide 23 mmol/L (21-32) 11/13/16 06:00 Anion Gap 10 (8-16) 11/13/16 06:00 BUN 25 mg/dL (7-18) H D 11/13/16 06:00 Creatinine 1.0 mg/dL (0.7-1.3) D 11/13/16 06:00 Creat Clearance w eGFR > 60 (>60) 11/13/16 06:00 Random Glucose 93 mg/dL (74-106) 11/13/16 06:00 Calcium 8.5 mg/dL (8.5-10.1) 11/13/16 06:00 Total Bilirubin 0.6 mg/dL (0.2-1.0) D 11/13/16 06:00 AST 21 U/L (15-37) 11/13/16 06:00 ALT 21 U/L (12-78) 11/13/16 06:00 Alkaline Phosphatase 82 U/L (45-117) D 11/13/16 06:00 Total Protein 7.6 g/dl (6.4-8.2) 11/13/16 06:00 Albumin 3.3 g/dl (3.4-5.0) L 11/13/16 06:00 Urine Color Yellow 11/12/16 20:45 Urine Appearance Clear 11/12/16 20:45 Urine pH 5.0 (5.0-8.0) D 11/12/16 20:45 Ur Specific [place] >= 1.030 (1.005-1.025) H 11/12/16 20:45 Urine Protein 1+ (NEGATIVE) H 11/12/16 20:45 Urine Glucose (UA) Negative (NEGATIVE) 11/12/16 20:45 Urine Ketones Negative (NEGATIVE) 11/12/16 20:45 Urine Blood Negative (NEGATIVE) 11/12/16 20:45 Urine Nitrite Negative (NEGATIVE) 11/12/16 20:45 Urine Bilirubin Negative (NEGATIVE) 11/12/16 20:45 Urine Urobilinogen 2.0 e.u/dl E.U./dl (0.2-1.0) 11/12/16 20:45 Ur Leukocyte Esterase Negative (NEGATIVE) 11/12/16 20:45 Urine RBC 4 /hpf (0-3) 11/12/16 20:45 Urine WBC 2 /hpf (3-5) 11/12/16 20:45 Ur Epithelial Cells Rare /hpf (FEW) 11/12/16 20:45 Hyaline Casts 2 /lpf 11/12/16 20:45 Urine Mucus Many 11/12/16 20:45 RPR Titer Nonreactive (NONREACTIVE) 11/13/16 06:00 Assessment: 11/14/16 10:33 withdrawal symptom 11/14/16 10:38 Plan: continue detox,encourage oral fluid
[2016-11-14] MEDS: BACITRACIN 30 GM TUBE TOPICAL OINTMENT TP SCH (10:36)
[2016-11-14] MEDS: SULFAMETHOXAZOLE/TRIMETHOPRIM 800MG/160MG D.S. TABLET PO SCH (10:36)
[2016-11-14] MEDS: PRENATAL VITAMINS W/ FOLIC ACID TABLET (FP) PO SCH (10:36)
[2016-11-14] MEDS: THIAMINE HCL 100 MG TABLET (FP) PO SCH (22:18)
[2016-11-14] MEDS: diphenhydrAMINE HCL 50 MG CAPSULE PO PRN (22:18)
[2016-11-14] MEDS: chlordiazePOXIDE 5 MG CAPSULE PO SCH (22:19)
[2016-11-15] MEDS: GABAPENTIN 300 MG CAPSULE (FP) PO SCH ×3 (05:12→22:21)
[2016-11-15] MEDS: chlordiazePOXIDE 5 MG CAPSULE PO SCH ×3 (05:12→17:55)
[2016-11-15] MEDS: METHADONE HCL 10 MG TABLET PO SCH (05:12)
[2016-11-15] MEDS: IBUPROFEN 400 MG TABLET (FP) PO PRN (05:21)
[2016-11-15] MEDS ORDERED: BACITRACIN 0.9 GM PACKET ONE (08:31)
[2016-11-15] MEDS: PRENATAL VITAMINS W/ FOLIC ACID TABLET (FP) PO SCH (11:05)
[2016-11-15] MEDS: SULFAMETHOXAZOLE/TRIMETHOPRIM 800MG/160MG D.S. TABLET PO SCH (11:05)
[2016-11-15] MEDS: BACITRACIN 30 GM TUBE TOPICAL OINTMENT TP SCH (11:13)
--- NOTE | 2016-11-15 11:50 | PN ---
[facility] Progress Note (SOAP) Subjective: ALERT,INTERRUPTED SLEEP Objective: 11/15/16 11:48 Vital Signs Temperature 98.2 F 11/15/16 09:44 Pulse Rate 98 H 11/15/16 09:44 Respiratory Rate 18 11/15/16 09:44 Blood Pressure 101/65 11/15/16 09:44 O2 Sat by Pulse Oximetry (%) Assessment: 11/15/16 11:49 11/15/16 11:49 WITHDRAWAL SYMPTOM Plan: CONTINUE DETOX
[2016-11-15] MEDS ORDERED: IBUPROFEN 600 MG TABLET (FP) PO PRN (11:52)
[2016-11-15] MEDS: THIAMINE HCL 100 MG TABLET (FP) PO SCH (22:22)
[2016-11-15] MEDS: chlordiazePOXIDE HCL 10 MG CAPSULE PO SCH (22:22)
[2016-11-15] MEDS: diphenhydrAMINE HCL 50 MG CAPSULE PO PRN (22:22)
[2016-11-16] MEDS: chlordiazePOXIDE HCL 10 MG CAPSULE PO SCH (06:08)
[2016-11-16] MEDS: GABAPENTIN 300 MG CAPSULE (FP) PO SCH (06:08)
[2016-11-16] MEDS: METHADONE HCL 10 MG TABLET PO SCH (06:09)
[2016-11-16 07:16] VITALS: TEMP 99.1
--- NOTE | 2016-11-16 09:00 | PN ---
S Progress Note (SOAP) Subjective: alert,no complaint Objective: 11/16/16 08:58 Vital Signs Temperature 99.1 F 11/16/16 07:15 Pulse Rate 103 H 11/16/16 07:15 Respiratory Rate 18 11/16/16 07:15 Blood Pressure 108/74 11/16/16 07:15 O2 Sat by Pulse Oximetry (%) Assessment: 11/16/16 08:58 detox completed,no withdrawal symptom Plan: discharge today,follow up with after care program as arrangement [facility]
--- NOTE | 2016-11-16 09:04 | DS ---
[facility] Detox Discharge Summary Admission Date: 11/12/16 Discharge Date: 11/16/16 - History Present History: Alcohol Dependence, Cocaine Dependence Additional Comments: follow up with after care program as arrangement Pertinent Past History: aids bipolar disorder asthma hepatitis c weight loss insomnia use cane as ambulatory aids resolving abscess right forearm - Physical Exam Results Vital Signs: Vital Signs Temperature 99.1 F 11/16/16 07:15 Pulse Rate 103 H 11/16/16 07:15 Respiratory Rate 18 11/16/16 07:15 Blood Pressure 108/74 11/16/16 07:15 O2 Sat by Pulse Oximetry (%) - Treatment Hospital Course: Detox Protocol Followed, Detoxed Safely, Responded well, Discharged Condition Good, Rehab Referral Accepted Patient has Accepted a Rehab Referral to: [facility] - Medication Discharge Medications: Ambulatory Orders Albuterol Sulfate Inhaler - [Ventolin HFA Inhaler -] 2 puff IH Q4H PRN #1 inhaler 07/03/16 Gabapentin [Neurontin -] 300 mg PO Q8H #90 capsule 07/03/16 Trazodone HCl [Desyrel -] 100 mg PO HS #30 tablet 07/03/16 - Diagnosis (1) Alcohol dependence with uncomplicated withdrawal Current Visit: Yes Status: Acute (2) Bipolar disorder Current Visit: No Status: Acute (3) Cocaine dependence Current Visit: Yes Status: Acute (4) Acquired immune deficiency syndrome (AIDS) Current Visit: Yes Status: Chronic (5) Asthma Current Visit: Yes Status: Chronic Qualifiers: Asthma severity: mild intermittent Asthma complication type: uncomplicated Qualified Code(s): J45.20 - Mild intermittent asthma, uncomplicated (6) Hepatitis C carrier Current Visit: Yes Status: Chronic (7) Weight loss Current Visit: Yes Status: Chronic (8) Insomnia Current Visit: Yes Status: Acute (9) Positive PPD Current Visit: Yes Status: Acute (10) Positive PPD, treated Current Visit: Yes Status: Chronic (11) Use of cane as ambulatory aid Current Visit: Yes Status: Acute (12) Neuropathy Current Visit: Yes Status: Chronic - AMA Did Patient Leave Against Medical Advice: No
[2016-11-16] MEDS ORDERED: BACITRACIN 0.9 GM PACKET ONE (09:12)
[2016-11-16] MEDS: PRENATAL VITAMINS W/ FOLIC ACID TABLET (FP) PO SCH (09:41)
[2016-11-16] MEDS: SULFAMETHOXAZOLE/TRIMETHOPRIM 800MG/160MG D.S. TABLET PO SCH (09:41)
[2016-11-16] MEDS: BACITRACIN 30 GM TUBE TOPICAL OINTMENT TP SCH (09:42)
[2016-11-16 10:44] VITALS: BP 113/66; PULSE 106
== END 2016-11-16 12:49 | disposition other institution (70) | DRG 773 ==
LOC: YASAS 12:37 → Y6N 16:39
PROVIDERS: ADMIT Internal Medicine; ATTEND Internal Medicine
PROC: HZ2ZZZZ Detoxification Services for Substance Abuse Treatment (ICD-10-PCS; principal; 2016-11-12)
DX: F11.23 Opioid dependence with withdrawal (principal); F10.230 Alcohol dependence with withdrawal, uncomplicated; F14.20 Cocaine dependence, uncomplicated; F17.210 Nicotine dependence, cigarettes, uncomplicated; F31.9 Bipolar disorder, unspecified; F19.24 Other psychoactive substance dependence with psychoactive substance-induced mood disorder; B20 Human immunodeficiency virus [HIV] disease; B18.2 Chronic viral hepatitis C; J45.20 Mild intermittent asthma, uncomplicated; G47.00 Insomnia, unspecified; R76.11 Nonspecific reaction to tuberculin skin test without active tuberculosis; R26.2 Difficulty in walking, not elsewhere classified; Z99.89 Dependence on other enabling machines and devices; G62.9 Polyneuropathy, unspecified; L02.414 Cutaneous abscess of left upper limb; H91.91 Unspecified hearing loss, right ear; M54.5 Low back pain; G89.29 Other chronic pain; M19.90 Unspecified osteoarthritis, unspecified site; R00.1 Bradycardia, unspecified; Z91.14 Patient's other noncompliance with medication regimen; Z87.898 Personal history of other specified conditions
CPT/HCPCS: 36415; 80053; 81003; 81015; 85027; 86593; 93005; 93010

== ENCOUNTER 2016-11-13 20:09 | Emergency (ER) | payer OTHER ==
[2016-11-13 20:54] VITALS: BP 96/61; PULSE 70; TEMP 97.6; BMI 19.8
--- NOTE | 2016-11-13 20:58 | PDOC ---
History of Present Illness - General Stated Complaint: ABNORMAL LABS Time Seen by Provider: 11/13/16 20:14 History Source: Patient, Old Records Exam Limitations: No Limitations - History of Present Illness Initial Comments: 11/13/16 20:50 61yo Male patient w/ PmHx: Anemia, HIV+, Neuropathy, Asthma, presented to ED via EMS from Detox ([facility]). Patient states he has been sleeping a lot lately, and staff has been intentionally not waking him up, so he is missing his hot meals. Patient states he is agitated by this because he has to eat cold [employer] [place]. After reviewing Nadya Cruzer note regarding why patient was sent. It was determine that the concern was for altered mental status r/t elevated BUN 25. Ms. Minor wrote patient appeared to be disoriented, and incoherent with BUN 25. Patient transferred to [facility] for medical evaluation. Past History - Travel Traveled outside of the country in the last 30 days: No Close contact w/someone who was outside of country & ill: No - Past Medical History Allergies/Adverse Reactions: Allergies Allergy/AdvReac Type Severity Reaction Status Date / Time fish derived Allergy Intermediate Rash Verified 11/12/16 15:50 No Known Drug Allergies Allergy Verified 11/12/16 15:50 Home Medications: Ambulatory Orders Albuterol Sulfate Inhaler - [Ventolin HFA Inhaler -] 2 puff IH Q4H PRN #1 inhaler 07/03/16 Gabapentin [Neurontin -] 300 mg PO Q8H #90 capsule 07/03/16 Trazodone HCl [Desyrel -] 100 mg PO HS #30 tablet 07/03/16 Anemia: No Asthma: Yes (Pt is on MDi) Cancer: No Cardiac Disorders: No CVA: No COPD: No CHF: No Dementia: No Diabetes: No GI Disorders: No Disorders: No HTN: No Hypercholesterolemia: No HIV: Yes Kidney Stones: No Liver Disease: Yes (hep c treated) Suicide Attempt (Hx): No Seizures: No Thyroid Disease: No - Surgical History Abdominal Surgery: No Appendectomy: No Cardiac Surgery: No Cholecystectomy: No Lung Surgery: No Neurologic Surgery: No Orthopedic Surgery: No - Reproductive History Testicular Surgery: No - Psycho/Social/Smoking Cessation Hx Anxiety: No Suicidal Ideation: No Smoking Status: Yes Smoking History: Current every day smoker Have you smoked in the past 12 months: Yes Number of Cigarettes Smoked Daily: 10 Cigars Per Day: 0 'Breaking Loose' booklet given: 11/12/16 Hx Alcohol Use: Yes Drug/Substance Use Hx: Yes Substance Use Type: Alcohol, Cocaine, Heroin Hx Substance Use Treatment: Yes ([facility] 06/07/16 to 06/12/16) Review of Systems - Review of Systems Able to Perform ROS?: Yes Is the patient limited Israeli proficient: No Neurological: Yes: Other (Altered Mental Status) All Other Systems: Reviewed and Negative *Physical Exam - Physical Exam General Appearance: Yes: Nourished, Appropriately Dressed. No: Apparent Distress, Mild Distress, Moderate Distress, Severe Distress HEENT: positive: EOMI, NIKI, Normal ENT Inspection, Normal Voice, Symmetrical, TMs Normal, Pharynx Normal. negative: Pharyngeal Erythema, Tonsillar Exudate, Tonsillar Erythema, Nasal Congestion, Rhinorrhea, TM Bulging, TM Dull, TM Erythema Neck: positive: Trachea midline, Supple. negative: Stridor, Lymphadenopathy (R) , Lymphadenopathy (L) Respiratory/Chest: positive: Lungs Clear, Normal Breath Sounds. negative: Chest Tender, Respiratory Distress, Accessory Muscle Use, Labored Respiration, Rapid RR Cardiovascular: positive: Regular Rhythm, Regular Rate Gastrointestinal/Abdominal: positive: Normal Bowel Sounds, Soft. negative: Distended, Guarding, Rebound, Tenderness Musculoskeletal: positive: Normal Inspection. negative: CVA Tenderness, Vertebral Tenderness Extremity: positive: Normal Capillary Refill, Normal Inspection, Normal Range of Motion. negative: Pedal Edema, Swelling, Calf Tenderness, Erythema, Inflammation Integumentary: positive: Normal Color, Dry, Warm. negative: Erythema, Moist, Rash, Swelling, Bruising Neurologic: positive: rate and cost analyst II-XII NML intact, Fully Oriented, Alert, Normal Mood/ Affect, Normal Response, Motor Strength 5/5 ED Treatment Course - LABORATORY CBC & Chemistry Diagram: 11/13/16 20:44 11/13/16 20:44 - RADIOLOGY Radiology Studies Ordered: Category Date Time Status HEAD CT WITHOUT CONTRAST [CT] Stat CT Scan 11/13/16 20:39 Ordered Medical Decision Making - Medical Decision Making 11/13/16 22:54 Patient refused IVF at this time. Patient lab results point to dehydration. *DC/Admit/Observation/Transfer Diagnosis at time of Disposition: Dehydration - Discharge Dispostion Disposition: I.P. ALCOHOL/SUBS ABUSE REHAB Condition at time of disposition: Stable Admit: No - Patient Instructions Printed Discharge Instructions: DI for Dehydration -- Adult Print Language: BELARUSIAN
--- NOTE | 2016-11-13 21:00 | PDOC ---
*Physical Exam - Vital Signs Last Vital Signs Temp Pulse Resp BP Pulse Ox 97.6 F 70 16 96/61 95 11/13/16 20:50 11/13/16 20:50 11/13/16 20:50 11/13/16 20:50 11/13/16 20:50 ED Treatment Course - LABORATORY CBC & Chemistry Diagram: 11/13/16 20:44 11/13/16 20:44 Medical Decision Making - Medical Decision Making 11/13/16 21:00 agree with care from ANDREINA De Luna *DC/Admit/Observation/Transfer Diagnosis at time of Disposition: Dehydration - Discharge Dispostion Disposition: I.P. ALCOHOL/SUBS ABUSE REHAB Condition at time of disposition: Stable - Referrals Referrals: STAFF,NOT ON [Primary Care Provider] - - Patient Instructions Printed Discharge Instructions: DI for Dehydration -- Adult Print Language: CANADIAN
[2016-11-13 21:34] LABS: MCH 30.2 pg (25.7-33.7); MCHC 32.6 g/dl (32.0-35.9); MEAN CELL VOLUME 92.7 fl (80-96); MEAN PLT VOLUME 8.2 fl (7.5-11.1); PLATELET COUNT 183 K/MM3 (134-434); RDW 13.2 % (11.9-15.9); WHITE BLOOD COUNT 3.9 K/mm3 (4.0-10.0)
[2016-11-13 21:59] LABS: ALBUMIN 2.9 g/dl (3.4-5.0); BILIRUBIN,TOTAL 0.2 mg/dL (0.2-1.0); COCKROFT - GAULT 45.62; CREATININE 1.4 mg/dL (0.7-1.3); TOT PROT 6.9 g/dl (6.4-8.2)
[2016-11-13 22:16] LABS: PLATELET ESTIMATE ADEQUATE (NORMAL)
== END 2016-11-13 23:06 | disposition other institution (70) ==
LOC: JER 20:09
DX: E86.0 Dehydration (principal); Z21 Asymptomatic human immunodeficiency virus [HIV] infection status; J45.909 Unspecified asthma, uncomplicated; G62.9 Polyneuropathy, unspecified; B19.20 Unspecified viral hepatitis C without hepatic coma; F17.210 Nicotine dependence, cigarettes, uncomplicated
CPT/HCPCS: 36415; 70450-TC; 80053; 82140; 82150; 83690; 85025; 99282-25

== ENCOUNTER 2016-11-16 13:02 | Inpatient (IN) | payer OTHER ==
[2016-11-16] MEDS ORDERED: MAGNESIUM CITRATE 300 ML BOTTLE PO PRN (13:30)
[2016-11-16] MEDS ORDERED: ACETAMINOPHEN 325 MG TABLET (FP) PO PRN (13:30)
[2016-11-16] MEDS ORDERED: P-EPHED 60MG/TRIPROLIDI 2.5MG TABLET PO PRN (13:30)
[2016-11-16] MEDS ORDERED: MAGNESIUM HYDROX 2400MG/30ML ORAL SUSPENSION 30 ML CUP PO PRN (13:30)
[2016-11-16] MEDS ORDERED: guaiFENesin/D-METHORPHAN HB 10 ML UNIT-DOSE CUPS PO PRN (13:30)
[2016-11-16] MEDS ORDERED: NICOTINE POLACRILEX 4 MG GUM BUC PRN (13:30)
[2016-11-16] MEDS ORDERED: MAG HYDROX/AL HYDROX/SIMETH 30 ML UNIT-DOSE CUP PO PRN (13:30)
[2016-11-16] MEDS ORDERED: MENTHOL/PHENOL 1 EACH UD MM PRN (13:30)
[2016-11-16] MEDS ORDERED: LOPERAMIDE HCL 2 MG CAPSULE PO PRN (13:30)
--- NOTE | 2016-11-16 13:35 | HP ---
[facility] Rehab Assess/Revision - Admission History Admitted to Rehab from: [facility] [place] Date of Admission to Rehab: 11/16/16 - Vital signs Vital Signs: Vital Signs Period Temp Pulse Resp BP Sys/Hyman Pulse Ox Last 24 Hr 99 F 98 16 113/68 - Findings Detox History & Physical reviewed: Yes Concur with findings: Yes
--- NOTE | 2016-11-16 14:36 | HP ---
Psychiatrist Admission - Data Date of interview: 11/16/16 Admission source: 6N Identifying data: This is the third inpatient rehabilitation admission for this 61 year old male who is ,a father of three,domiciled,disabled and supported on SSI benefits Medical History: AIDS ,hepatitis C,bronchial asthma,pneumonia,past treatment for sepsis (related to AIDS/HIV),neuropathy,chronic back pain,right ear deafness ,and a history of fractures of L1-L2 + left tibia. Psychiatric History: Patient reports no history of psychiatric treatment, however states was seen by a psychiatrist years ago and was told he has a bipolar, no medications recommended. Was seen by while in detox and no medications recomende. Patient is poor historian due to his sedation state.. Vital Signs: Vital Signs - 24 hr 11/16/16 13:26 Temperature 99 F Pulse Rate 98 H Respiratory 16 Rate Blood Pressure 113/68 Allergies/Adverse Reactions: Allergies Allergy/AdvReac Type Severity Reaction Status Date / Time fish derived Allergy Intermediate Rash Verified 11/12/16 15:50 No Known Drug Allergies Allergy Verified 11/12/16 15:50 Date of last physical exam: 11/12/16 Concur with the findings of this exam: Yes - Substance Abuse/Tx History Hx Alcohol Use: Yes (1 pints of vodka, beer daily) Hx Substance Use: Yes Substance Use Type: Heroin (15 bags. Age of first use: 7) Hx Substance Use Treatment: Yes - Admission Criteria Previous failed treatment: Yes Poor recovery environment: Yes Comorbidities: Yes Lacks judgement: Yes Mental Status Exam - Mental Status Exam Alert and Oriented to: Person Cognitive Function: Impaired Patient Appearance: Unkempt Affect: Blunted Patient Behavior: Cooperative Speech Pattern: Delayed Voice Loudness: Normal Thought Process: Goal Oriented Thought Disorder: Not Present Hallucinations: Denies Suicidal Ideation: Denies Homicidal Ideation: Denies Insight/Judgement: Fair Sleep: Fair Appetite: Fair Muscle strength/Tone: Normal Gait/Station: Normal Psychiatric Findings - Problem List ([place] 1, 2,3) (1) Alcohol dependence Current Visit: No Status: Acute (2) Bipolar disorder Current Visit: No Status: Acute (3) Cocaine dependence Current Visit: No Status: Acute (4) Nicotine dependence, cigarettes, uncomplicated Current Visit: No Status: Acute (5) Opioid dependence Current Visit: Yes Status: Acute - Initial Treatment Plan Initial Treatment Plan: Psychoeducation, will monitor progress as needed.
[2016-11-16] MEDS: diphenhydrAMINE HCL 50 MG CAPSULE PO PRN (22:34)
[2016-11-16] MEDS: THIAMINE HCL 100 MG TABLET (FP) PO SCH (22:34)
[2016-11-16] MEDS: IBUPROFEN 400 MG TABLET (FP) PO PRN (22:35)
[2016-11-17] MEDS: METHADONE HCL 10 MG TABLET PO SCH (07:04)
[2016-11-17] MEDS ORDERED: SULFAMETHOXAZOLE/TRIMETHOPRIM 800MG/160MG D.S. TABLET PO SCH (10:00)
[2016-11-17] MEDS: PRENATAL VITAMINS W/ FOLIC ACID TABLET (FP) PO SCH (10:15)
[2016-11-17] MEDS: IBUPROFEN 400 MG TABLET (FP) PO PRN (10:16)
[2016-11-17] MEDS: THIAMINE HCL 100 MG TABLET (FP) PO SCH (22:25)
[2016-11-17] MEDS: SULFAMETHOXAZOLE/TRIMETHOPRIM 800MG/160MG D.S. TABLET PO SCH (22:25)
[2016-11-17] MEDS: diphenhydrAMINE HCL 50 MG CAPSULE PO PRN (22:26)
[2016-11-17] MEDS: BACITRACIN 0.9 GM PACKET TP SCH (22:27)
[2016-11-17] MEDS ORDERED: BACITRACIN 0.9 GM PACKET ONE (23:22)
[2016-11-18] MEDS: IBUPROFEN 400 MG TABLET (FP) PO PRN ×2 (05:09→11:36)
[2016-11-18] MEDS: METHADONE HCL 10 MG TABLET PO SCH (06:22)
[2016-11-18] MEDS: PRENATAL VITAMINS W/ FOLIC ACID TABLET (FP) PO SCH (11:33)
[2016-11-18] MEDS: SULFAMETHOXAZOLE/TRIMETHOPRIM 800MG/160MG D.S. TABLET PO SCH ×2 (11:33→21:04)
[2016-11-18] MEDS: BACITRACIN 0.9 GM PACKET TP SCH ×2 (11:36→21:04)
[2016-11-18] MEDS ORDERED: BACITRACIN 0.9 GM PACKET ONE (20:27)
[2016-11-18] MEDS: diphenhydrAMINE HCL 50 MG CAPSULE PO PRN (21:04)
[2016-11-18] MEDS: THIAMINE HCL 100 MG TABLET (FP) PO SCH (21:04)
[2016-11-19] MEDS: METHADONE HCL 10 MG TABLET PO SCH (06:17)
[2016-11-19] MEDS: IBUPROFEN 400 MG TABLET (FP) PO PRN (06:19)
[2016-11-19] MEDS: SULFAMETHOXAZOLE/TRIMETHOPRIM 800MG/160MG D.S. TABLET PO SCH ×2 (11:20→22:27)
[2016-11-19] MEDS: BACITRACIN 0.9 GM PACKET TP SCH ×2 (11:21→22:27)
[2016-11-19] MEDS: PRENATAL VITAMINS W/ FOLIC ACID TABLET (FP) PO SCH (11:21)
[2016-11-19] MEDS ORDERED: BACITRACIN 0.9 GM PACKET ONE (20:21)
[2016-11-19] MEDS: THIAMINE HCL 100 MG TABLET (FP) PO SCH (22:27)
[2016-11-19] MEDS: diphenhydrAMINE HCL 50 MG CAPSULE PO PRN (22:27)
[2016-11-20] MEDS: diphenhydrAMINE HCL 50 MG CAPSULE PO PRN ×2 (01:19→22:02)
[2016-11-20] MEDS: IBUPROFEN 400 MG TABLET (FP) PO PRN ×3 (01:21→22:02)
[2016-11-20] MEDS: METHADONE HCL 10 MG TABLET PO SCH (06:34)
[2016-11-20] MEDS ORDERED: BACITRACIN 0.9 GM PACKET ONE (08:58)
[2016-11-20] MEDS: BACITRACIN 0.9 GM PACKET TP SCH ×2 (10:34→22:01)
[2016-11-20] MEDS: SULFAMETHOXAZOLE/TRIMETHOPRIM 800MG/160MG D.S. TABLET PO SCH ×2 (10:34→22:01)
[2016-11-20] MEDS: PRENATAL VITAMINS W/ FOLIC ACID TABLET (FP) PO SCH (10:34)
[2016-11-20] MEDS ORDERED: LIDOCAINE 5% TOPICAL PATCH TP ONE (12:10)
[2016-11-20] MEDS ORDERED: LIDOCAINE PATCH REMOVAL MC SCH (22:00)
[2016-11-20] MEDS: THIAMINE HCL 100 MG TABLET (FP) PO SCH (22:01)
[2016-11-20] MEDS: LIDOCAINE PATCH REMOVAL MC SCH (22:02)
[2016-11-21] MEDS: METHADONE HCL 10 MG TABLET PO SCH (06:10)
[2016-11-21] MEDS: SULFAMETHOXAZOLE/TRIMETHOPRIM 800MG/160MG D.S. TABLET PO SCH ×2 (10:25→21:33)
[2016-11-21] MEDS: BACITRACIN 0.9 GM PACKET TP SCH (10:25)
[2016-11-21] MEDS: IBUPROFEN 400 MG TABLET (FP) PO PRN (10:25)
[2016-11-21] MEDS: LIDOCAINE 5% TOPICAL PATCH TP SCH (10:26)
[2016-11-21] MEDS: PRENATAL VITAMINS W/ FOLIC ACID TABLET (FP) PO SCH (10:27)
[2016-11-21] MEDS: SILVER SULFADIAZINE 1% TOP CREAM 50 GM JAR TP SCH (12:21)
[2016-11-21] MEDS: THIAMINE HCL 100 MG TABLET (FP) PO SCH (21:33)
[2016-11-21] MEDS: LIDOCAINE PATCH REMOVAL MC SCH (21:34)
[2016-11-22] MEDS: ALBUTEROL SO4 6.7 GM HFA INHALER IH PRN (04:15)
[2016-11-22] MEDS: METHADONE HCL 10 MG TABLET PO SCH (06:09)
[2016-11-22] MEDS: SILVER SULFADIAZINE 1% TOP CREAM 50 GM JAR TP SCH (10:33)
[2016-11-22] MEDS: SULFAMETHOXAZOLE/TRIMETHOPRIM 800MG/160MG D.S. TABLET PO SCH ×2 (10:33→21:52)
[2016-11-22] MEDS: PRENATAL VITAMINS W/ FOLIC ACID TABLET (FP) PO SCH (10:33)
[2016-11-22] MEDS: LIDOCAINE 5% TOPICAL PATCH TP SCH (10:34)
[2016-11-22] MEDS: IBUPROFEN 400 MG TABLET (FP) PO PRN (15:31)
[2016-11-22] MEDS: THIAMINE HCL 100 MG TABLET (FP) PO SCH (21:53)
[2016-11-22] MEDS: diphenhydrAMINE HCL 50 MG CAPSULE PO PRN (21:53)
[2016-11-22] MEDS: LIDOCAINE PATCH REMOVAL MC SCH (21:54)
[2016-11-23] MEDS: METHADONE HCL 10 MG TABLET PO SCH (06:35)
[2016-11-23] MEDS: PRENATAL VITAMINS W/ FOLIC ACID TABLET (FP) PO SCH (10:13)
[2016-11-23] MEDS: SULFAMETHOXAZOLE/TRIMETHOPRIM 800MG/160MG D.S. TABLET PO SCH ×2 (10:13→22:33)
[2016-11-23] MEDS: IBUPROFEN 400 MG TABLET (FP) PO PRN (10:14)
[2016-11-23] MEDS: LIDOCAINE 5% TOPICAL PATCH TP SCH (10:16)
[2016-11-23] MEDS: SILVER SULFADIAZINE 1% TOP CREAM 50 GM JAR TP SCH (10:16)
[2016-11-23] MEDS: THIAMINE HCL 100 MG TABLET (FP) PO SCH (22:27)
[2016-11-23] MEDS: LIDOCAINE PATCH REMOVAL MC SCH (22:27)
[2016-11-23] MEDS: diphenhydrAMINE HCL 50 MG CAPSULE PO PRN (22:34)
[2016-11-24] MEDS: METHADONE HCL 10 MG TABLET PO SCH (06:21)
[2016-11-24] MEDS: SULFAMETHOXAZOLE/TRIMETHOPRIM 800MG/160MG D.S. TABLET PO SCH ×2 (10:15→22:01)
[2016-11-24] MEDS: PRENATAL VITAMINS W/ FOLIC ACID TABLET (FP) PO SCH (10:15)
[2016-11-24] MEDS: LIDOCAINE 5% TOPICAL PATCH TP SCH (10:15)
[2016-11-24] MEDS: SILVER SULFADIAZINE 1% TOP CREAM 50 GM JAR TP SCH (10:16)
[2016-11-24] MEDS: THIAMINE HCL 100 MG TABLET (FP) PO SCH (22:01)
[2016-11-24] MEDS: diphenhydrAMINE HCL 50 MG CAPSULE PO PRN (22:02)
[2016-11-24] MEDS: LIDOCAINE PATCH REMOVAL MC SCH (22:03)
[2016-11-25] MEDS: METHADONE HCL 10 MG TABLET PO SCH (06:42)
[2016-11-25] MEDS: IBUPROFEN 400 MG TABLET (FP) PO PRN (08:03)
[2016-11-25] MEDS: SULFAMETHOXAZOLE/TRIMETHOPRIM 800MG/160MG D.S. TABLET PO SCH ×2 (10:38→21:46)
[2016-11-25] MEDS: LIDOCAINE 5% TOPICAL PATCH TP SCH (10:38)
[2016-11-25] MEDS: PRENATAL VITAMINS W/ FOLIC ACID TABLET (FP) PO SCH (10:38)
[2016-11-25] MEDS: THIAMINE HCL 100 MG TABLET (FP) PO SCH (21:46)
[2016-11-25] MEDS: diphenhydrAMINE HCL 50 MG CAPSULE PO PRN (21:47)
[2016-11-25] MEDS: LIDOCAINE PATCH REMOVAL MC SCH (22:17)
[2016-11-26] MEDS: METHADONE HCL 10 MG TABLET PO SCH (05:54)
[2016-11-26] MEDS: SULFAMETHOXAZOLE/TRIMETHOPRIM 800MG/160MG D.S. TABLET PO SCH ×2 (10:40→21:57)
[2016-11-26] MEDS: PRENATAL VITAMINS W/ FOLIC ACID TABLET (FP) PO SCH (10:40)
[2016-11-26] MEDS: LIDOCAINE 5% TOPICAL PATCH TP SCH (10:41)
[2016-11-26] MEDS: THIAMINE HCL 100 MG TABLET (FP) PO SCH (21:57)
[2016-11-26] MEDS: diphenhydrAMINE HCL 50 MG CAPSULE PO PRN (21:58)
[2016-11-26] MEDS: LIDOCAINE PATCH REMOVAL MC SCH (22:27)
[2016-11-27] MEDS: METHADONE HCL 10 MG TABLET PO SCH (05:52)
[2016-11-27] MEDS: LIDOCAINE 5% TOPICAL PATCH TP SCH (10:29)
[2016-11-27] MEDS: SULFAMETHOXAZOLE/TRIMETHOPRIM 800MG/160MG D.S. TABLET PO SCH ×2 (10:29→22:21)
[2016-11-27] MEDS: PRENATAL VITAMINS W/ FOLIC ACID TABLET (FP) PO SCH (10:29)
[2016-11-27] MEDS: SILVER SULFADIAZINE 1% TOP CREAM 50 GM JAR TP SCH (10:30)
--- NOTE | 2016-11-27 14:58 | PN ---
[facility] Progress Note Note: history of low back pain on neurontin 300 mgs po q 8 hrs,ordered
[2016-11-27] MEDS: GABAPENTIN 300 MG CAPSULE (FP) PO SCH ×2 (15:08→22:21)
[2016-11-27] MEDS: THIAMINE HCL 100 MG TABLET (FP) PO SCH (22:21)
[2016-11-27] MEDS: LIDOCAINE PATCH REMOVAL MC SCH (22:21)
[2016-11-28] MEDS: GABAPENTIN 300 MG CAPSULE (FP) PO SCH ×3 (06:15→21:26)
[2016-11-28] MEDS: METHADONE HCL 10 MG TABLET PO SCH (06:15)
[2016-11-28] MEDS: PRENATAL VITAMINS W/ FOLIC ACID TABLET (FP) PO SCH (10:24)
[2016-11-28] MEDS: SULFAMETHOXAZOLE/TRIMETHOPRIM 800MG/160MG D.S. TABLET PO SCH ×2 (10:24→21:26)
[2016-11-28] MEDS: SILVER SULFADIAZINE 1% TOP CREAM 50 GM JAR TP SCH (10:25)
[2016-11-28] MEDS: LIDOCAINE 5% TOPICAL PATCH TP SCH (10:25)
[2016-11-28] MEDS: THIAMINE HCL 100 MG TABLET (FP) PO SCH (21:26)
[2016-11-28] MEDS: LIDOCAINE PATCH REMOVAL MC SCH (21:26)
[2016-11-29] MEDS: METHADONE HCL 10 MG TABLET PO SCH (06:15)
[2016-11-29] MEDS: GABAPENTIN 300 MG CAPSULE (FP) PO SCH ×3 (06:16→21:51)
[2016-11-29] MEDS: PRENATAL VITAMINS W/ FOLIC ACID TABLET (FP) PO SCH (10:53)
[2016-11-29] MEDS: SILVER SULFADIAZINE 1% TOP CREAM 50 GM JAR TP SCH ×3 (10:53→11:04)
[2016-11-29] MEDS: LIDOCAINE 5% TOPICAL PATCH TP SCH (10:53)
[2016-11-29] MEDS: SULFAMETHOXAZOLE/TRIMETHOPRIM 800MG/160MG D.S. TABLET PO SCH ×2 (10:53→21:50)
[2016-11-29] MEDS: diphenhydrAMINE HCL 50 MG CAPSULE PO PRN (21:50)
[2016-11-29] MEDS: LIDOCAINE PATCH REMOVAL MC SCH (21:51)
[2016-11-29] MEDS: THIAMINE HCL 100 MG TABLET (FP) PO SCH (21:51)
[2016-11-30] MEDS: GABAPENTIN 300 MG CAPSULE (FP) PO SCH ×3 (06:25→21:50)
[2016-11-30] MEDS: METHADONE HCL 10 MG TABLET PO SCH (06:25)
[2016-11-30] MEDS: PRENATAL VITAMINS W/ FOLIC ACID TABLET (FP) PO SCH (10:27)
[2016-11-30] MEDS: LIDOCAINE 5% TOPICAL PATCH TP SCH (10:27)
[2016-11-30] MEDS: SULFAMETHOXAZOLE/TRIMETHOPRIM 800MG/160MG D.S. TABLET PO SCH ×2 (10:27→21:50)
[2016-11-30] MEDS: SILVER SULFADIAZINE 1% TOP CREAM 50 GM JAR TP SCH (10:28)
[2016-11-30] MEDS: THIAMINE HCL 100 MG TABLET (FP) PO SCH (21:50)
[2016-11-30] MEDS: diphenhydrAMINE HCL 50 MG CAPSULE PO PRN (21:51)
[2016-11-30] MEDS: LIDOCAINE PATCH REMOVAL MC SCH (23:24)
[2016-12-01] MEDS: GABAPENTIN 300 MG CAPSULE (FP) PO SCH ×3 (06:29→21:47)
[2016-12-01] MEDS: METHADONE HCL 10 MG TABLET PO SCH (06:29)
--- NOTE | 2016-12-01 09:37 | PN ---
[facility] Progress Note Note: Pt. is still c/o back pain even though he's on motrin 800mg prn & neurontin Vital Signs - 8 hr 12/01/16 12/01/16 03:30 06:00 Temperature 98.3 F Pulse Rate 80 Respiratory 18 18 Rate Blood Pressure 103/53 P : flexeril BID
[2016-12-01] MEDS: LIDOCAINE 5% TOPICAL PATCH TP SCH (09:51)
[2016-12-01] MEDS: PRENATAL VITAMINS W/ FOLIC ACID TABLET (FP) PO SCH (09:51)
[2016-12-01] MEDS: SULFAMETHOXAZOLE/TRIMETHOPRIM 800MG/160MG D.S. TABLET PO SCH ×2 (09:51→21:47)
[2016-12-01] MEDS: SILVER SULFADIAZINE 1% TOP CREAM 50 GM JAR TP SCH (09:51)
[2016-12-01] MEDS: CYCLOBENZAPRINE HCL 10 MG TABLET (FP) PO SCH ×2 (10:41→21:47)
[2016-12-01] MEDS: THIAMINE HCL 100 MG TABLET (FP) PO SCH (21:47)
[2016-12-01] MEDS: diphenhydrAMINE HCL 50 MG CAPSULE PO PRN (21:48)
[2016-12-01] MEDS: ALBUTEROL SO4 6.7 GM HFA INHALER IH PRN (21:51)
[2016-12-01] MEDS: LIDOCAINE PATCH REMOVAL MC SCH (22:07)
[2016-12-02] MEDS: GABAPENTIN 300 MG CAPSULE (FP) PO SCH ×3 (06:21→21:28)
[2016-12-02] MEDS: METHADONE HCL 10 MG TABLET PO SCH (06:21)
[2016-12-02] MEDS: SILVER SULFADIAZINE 1% TOP CREAM 50 GM JAR TP SCH (10:00)
[2016-12-02] MEDS: SULFAMETHOXAZOLE/TRIMETHOPRIM 800MG/160MG D.S. TABLET PO SCH ×2 (10:00→21:28)
[2016-12-02] MEDS: PRENATAL VITAMINS W/ FOLIC ACID TABLET (FP) PO SCH (10:00)
[2016-12-02] MEDS: CYCLOBENZAPRINE HCL 10 MG TABLET (FP) PO SCH ×2 (10:00→21:28)
[2016-12-02] MEDS: LIDOCAINE 5% TOPICAL PATCH TP SCH (10:00)
[2016-12-02] MEDS: THIAMINE HCL 100 MG TABLET (FP) PO SCH (21:28)
[2016-12-02] MEDS: LIDOCAINE PATCH REMOVAL MC SCH (21:28)
[2016-12-02] MEDS: diphenhydrAMINE HCL 50 MG CAPSULE PO PRN (21:28)
[2016-12-03] MEDS: METHADONE HCL 10 MG TABLET PO SCH (06:25)
[2016-12-03] MEDS: GABAPENTIN 300 MG CAPSULE (FP) PO SCH ×3 (06:26→21:09)
[2016-12-03] MEDS: CYCLOBENZAPRINE HCL 10 MG TABLET (FP) PO SCH ×2 (10:20→21:09)
[2016-12-03] MEDS: SULFAMETHOXAZOLE/TRIMETHOPRIM 800MG/160MG D.S. TABLET PO SCH ×2 (10:20→21:09)
[2016-12-03] MEDS: SILVER SULFADIAZINE 1% TOP CREAM 50 GM JAR TP SCH (10:20)
[2016-12-03] MEDS: PRENATAL VITAMINS W/ FOLIC ACID TABLET (FP) PO SCH (10:20)
[2016-12-03] MEDS: LIDOCAINE 5% TOPICAL PATCH TP SCH (10:20)
[2016-12-03] MEDS: IBUPROFEN 400 MG TABLET (FP) PO PRN (10:21)
[2016-12-03] MEDS: THIAMINE HCL 100 MG TABLET (FP) PO SCH (21:09)
[2016-12-03] MEDS: LIDOCAINE PATCH REMOVAL MC SCH (21:10)
[2016-12-04] MEDS: METHADONE HCL 10 MG TABLET PO SCH (06:35)
[2016-12-04] MEDS: GABAPENTIN 300 MG CAPSULE (FP) PO SCH ×3 (06:36→21:25)
[2016-12-04] MEDS: PRENATAL VITAMINS W/ FOLIC ACID TABLET (FP) PO SCH (10:11)
[2016-12-04] MEDS: SULFAMETHOXAZOLE/TRIMETHOPRIM 800MG/160MG D.S. TABLET PO SCH ×2 (10:11→21:25)
[2016-12-04] MEDS: CYCLOBENZAPRINE HCL 10 MG TABLET (FP) PO SCH ×2 (10:11→21:25)
[2016-12-04] MEDS: IBUPROFEN 400 MG TABLET (FP) PO PRN (10:12)
[2016-12-04] MEDS: LIDOCAINE 5% TOPICAL PATCH TP SCH (10:12)
[2016-12-04] MEDS: SILVER SULFADIAZINE 1% TOP CREAM 50 GM JAR TP SCH (10:12)
[2016-12-04] MEDS: THIAMINE HCL 100 MG TABLET (FP) PO SCH (21:25)
[2016-12-04] MEDS: diphenhydrAMINE HCL 50 MG CAPSULE PO PRN (21:27)
[2016-12-04] MEDS: LIDOCAINE PATCH REMOVAL MC SCH (21:36)
[2016-12-05] MEDS: METHADONE HCL 10 MG TABLET PO SCH (06:26)
[2016-12-05] MEDS: GABAPENTIN 300 MG CAPSULE (FP) PO SCH ×3 (06:26→21:18)
[2016-12-05] MEDS: LIDOCAINE 5% TOPICAL PATCH TP SCH (09:51)
[2016-12-05] MEDS: CYCLOBENZAPRINE HCL 10 MG TABLET (FP) PO SCH ×2 (09:51→21:18)
[2016-12-05] MEDS: PRENATAL VITAMINS W/ FOLIC ACID TABLET (FP) PO SCH (09:51)
[2016-12-05] MEDS: SULFAMETHOXAZOLE/TRIMETHOPRIM 800MG/160MG D.S. TABLET PO SCH ×2 (09:51→21:18)
[2016-12-05] MEDS: SILVER SULFADIAZINE 1% TOP CREAM 50 GM JAR TP SCH (09:51)
[2016-12-05] MEDS: ALBUTEROL SO4 6.7 GM HFA INHALER IH PRN (09:52)
[2016-12-05] MEDS: THIAMINE HCL 100 MG TABLET (FP) PO SCH (21:18)
[2016-12-05] MEDS: LIDOCAINE PATCH REMOVAL MC SCH (21:18)
[2016-12-05] MEDS: diphenhydrAMINE HCL 50 MG CAPSULE PO PRN (21:19)
[2016-12-06] MEDS: GABAPENTIN 300 MG CAPSULE (FP) PO SCH ×3 (06:25→21:10)
[2016-12-06] MEDS: METHADONE HCL 10 MG TABLET PO SCH (06:25)
[2016-12-06] MEDS: CYCLOBENZAPRINE HCL 10 MG TABLET (FP) PO SCH ×2 (09:59→21:10)
[2016-12-06] MEDS: PRENATAL VITAMINS W/ FOLIC ACID TABLET (FP) PO SCH (09:59)
[2016-12-06] MEDS: SULFAMETHOXAZOLE/TRIMETHOPRIM 800MG/160MG D.S. TABLET PO SCH ×2 (09:59→21:10)
[2016-12-06] MEDS: SILVER SULFADIAZINE 1% TOP CREAM 50 GM JAR TP SCH (10:00)
[2016-12-06] MEDS: LIDOCAINE 5% TOPICAL PATCH TP SCH (10:00)
[2016-12-06] MEDS: THIAMINE HCL 100 MG TABLET (FP) PO SCH (21:10)
[2016-12-06] MEDS: diphenhydrAMINE HCL 50 MG CAPSULE PO PRN (21:10)
[2016-12-06] MEDS: LIDOCAINE PATCH REMOVAL MC SCH (23:10)
[2016-12-07 07:01] VITALS: BP 104/64; PULSE 90; TEMP 97.7
[2016-12-07] MEDS: METHADONE HCL 10 MG TABLET PO SCH (07:01)
[2016-12-07] MEDS: GABAPENTIN 300 MG CAPSULE (FP) PO SCH (07:02)
--- NOTE | 2016-12-07 10:16 | PN ---
Psychiatric Progress Note Vital Signs: Vital Signs Period Temp Pulse Resp BP Sys/Hyman Pulse Ox Last 24 Hr 97.7 F 90 16-18 104/64 Date of Session: 12/07/16 Chief Complaint:: discharge visit HPI: Patient has addressed alcohol, cocaine, opioid, nicotine dependence comorbid Bipolar disorder. ROS: AIDS ,bronchial asthma,pneumonia - medically managed, past treatment for sepsis related to AIDS and hepatitis C. Current Medications: Active Medications Generic Name Dose Route Start Last Admin Trade Name Freq PRN Reason Stop Dose Admin Acetaminophen 650 mg 11/16/16 13:30 11/18/16 06:25 Tylenol - PO 650 mg Q4H PRN Administration FEVER OR PAIN Al Hydroxide/Mg Hydroxide 30 ml 11/16/16 13:30 Mylanta Oral Suspension - PO Q6H PRN DYSPEPSIA Albuterol Sulfate 2 puff 11/16/16 13:30 12/05/16 09:52 Ventolin Hfa Inhaler - IH 2 puff Q4H PRN Administration ASTHMA Cyclobenzaprine HCl 10 mg 12/01/16 10:00 12/06/16 21:10 Flexeril - PO 10 mg BID BSESIE Administration Diphenhydramine HCl 50 mg 11/16/16 13:30 12/06/16 21:10 Benadryl - PO 50 mg HSMR1 PRN Administration FOR ITCHING Eucalyptus/Menthol/Phenol/Sorbitol 1 each 11/16/16 13:30 Cepastat Lozenge - MM Q4H PRN SORE THROAT Gabapentin 300 mg 11/27/16 15:00 12/07/16 07:02 Neurontin - PO 300 mg TID BESSIE Administration Guaifenesin 10 ml 11/16/16 13:30 Robitussin Dm - PO Q6H PRN COUGH Ibuprofen 800 mg 11/20/16 12:10 12/04/16 10:12 Motrin - PO 800 mg Q6H PRN Administration PAIN Lidocaine 1 patch 11/21/16 10:00 12/06/16 10:00 Lidoderm Patch - TP Not Given DAILY BESSIE Loperamide HCl 4 mg 11/16/16 13:30 Imodium - PO Q6H PRN DIARRHEA Magnesium Hydroxide 30 ml 11/16/16 13:30 Milk Of Magnesia - PO DAILY PRN CONSTIPATION Methadone HCl 30 mg 12/06/16 06:00 12/07/16 07:01 Dolophine - PO 30 mg DAILY@0600 BESSIE Administration Miscellaneous 1 each 11/20/16 22:00 12/06/16 23:10 Lidoderm Patch Removal MC 1 each DAILY@2200 BESSIE Administration Nicotine Polacrilex 4 mg 11/16/16 13:30 Nicorette Gum - BUC Q2H PRN NICOTINE REPLACEMENT RX Multivit/Folic Acid/Iron 1 tab 11/17/16 10:00 12/06/16 09:59 Vitamins (Sjr) - PO 1 tab DAILY BESSIE Administration Pseudoephedrine/Triprolidine 1 combo 11/16/16 13:30 Actifed - PO TID PRN NASAL CONGESTION Silver Sulfadiazine 1 applic 11/21/16 10:45 12/06/16 10:00 Silvadene - TP Not Given DAILY BESSIE Thiamine HCl 100 mg 11/16/16 22:00 12/06/16 21:10 Vitamin B1 - PO 100 mg HS BESSIE Administration Trimethoprim/Sulfamethoxazole 1 each 11/17/16 22:00 12/06/16 21:10 Bactrim Ds - PO 1 each BID BESSIE Administration Current Side Effect: No Lab tests ordered: No Lab tests reviewed: Yes Provider note:: Patient has complted today his tratment and met his goals, will continue to address his issues at [facility]. He focused on insights he gained in this treatments, he was educated on his addiction, implications and consequences of his addiction on his physical and mental health. He understands the negative imact of his addiction on his major life areas. Counseling and supportive therapy provided. Patient is stable for discharge. Total face to face time:: 35 Mental Status Exam - Mental Status Exam Alert and Oriented to: Time, Place, Person Cognitive Function: Good Patient Appearance: Well Groomed Mood: Hopeful Affect: Appropriate, Mood Congruent Patient Behavior: Appropriate, Cooperative Speech Pattern: Clear, Appropriate Voice Loudness: Normal Thought Process: Intact, Goal Oriented Thought Disorder: Not Present Hallucinations: Denies Suicidal Ideation: Denies Homicidal Ideation: Denies Insight/Judgement: Fair Sleep: Fair Appetite: Good Muscle strength/Tone: Normal Gait/Station: Normal Psychiatric Treatment Plan - Problem List (1) Alcohol dependence Current Visit: No (2) Bipolar disorder Current Visit: No (3) Cocaine dependence Current Visit: No (4) Nicotine dependence, cigarettes, uncomplicated Current Visit: No (5) Opioid dependence Current Visit: Yes
[2016-12-07] MEDS: SILVER SULFADIAZINE 1% TOP CREAM 50 GM JAR TP SCH (10:22)
[2016-12-07] MEDS: CYCLOBENZAPRINE HCL 10 MG TABLET (FP) PO SCH (10:22)
[2016-12-07] MEDS: PRENATAL VITAMINS W/ FOLIC ACID TABLET (FP) PO SCH (10:22)
[2016-12-07] MEDS: SULFAMETHOXAZOLE/TRIMETHOPRIM 800MG/160MG D.S. TABLET PO SCH (10:22)
[2016-12-07] MEDS: LIDOCAINE 5% TOPICAL PATCH TP SCH (10:22)
[2016-12-07] MEDS: IBUPROFEN 400 MG TABLET (FP) PO PRN (10:23)
== END 2016-12-07 10:45 | disposition home or self-care (01) | DRG 772 ==
LOC: YASAS 13:02 → Y5N 13:03
PROVIDERS: ADMIT Psychiatry & Neurology Psychiatry; ATTEND Psychiatry & Neurology Psychiatry
PROC: HZ42ZZZ Group Counseling for Substance Abuse Treatment, Cognitive-Behavioral (ICD-10-PCS; principal; 2016-12-07)
DX: F11.20 Opioid dependence, uncomplicated (principal); F10.20 Alcohol dependence, uncomplicated; F14.20 Cocaine dependence, uncomplicated; F17.210 Nicotine dependence, cigarettes, uncomplicated; F31.9 Bipolar disorder, unspecified

== ENCOUNTER 2017-01-11 16:10 | Inpatient (IN) | payer OTHER ==
[2017-01-11 17:45] VITALS: BMI 21.2
--- NOTE | 2017-01-11 18:45 | HP ---
COWS - Scale Resting Pulse: 0= AL 80 or Below Sweatin= Chills/Flushing Restless Observation: 3= Extraneous Movement Pupil Size: 0= Normal to Room Light Bone or Joint Aches: 2= Severe Diffuse Aches Runny Nose/ Eye Tearin= Runny Nose/Eyes GI Upset > 30mins: 1= Stomach Cramp Tremor Observation: 2= Slight Tremor Visible Yawning Observation: 0= None Anxiety or Irritability: 2=Irritable/Anxious Goose Flesh Skin: 0=Smooth Skin COWS Score: 13 CIWA Score - CIWA Score Nausea/Vomitin-Mild Nausea/No Vomiting Muscle Tremors: 4-Moderate,w/Arms Extend Anxiety: 4-Mod. Anxious/Guarded Agitation: 4-Moderately Restless Paroxysmal Sweats: 1-Minimal Palms Moist Orientation: 0-Oriented Tacttile Disturbances: 0-None Auditory Disturbances: 0-None Visual Disturbances: 0-None Headache: 0-None Present CIWA-Ar Total Score: 14 Admission ROS S - HPI Chief Complaint: withdrawal sx Allergies/Adverse Reactions: Allergies Allergy/AdvReac Type Severity Reaction Status Date / Time fish derived Allergy Intermediate Rash Verified 01/11/17 17:49 No Known Drug Allergies Allergy Verified 01/11/17 17:49 History of Present Illness: 61 years old male with long history of alcohol heroin nicotine dependence has hiv weight loss cane for ambulation and depression is admitted to detox Exam Limitations: No Limitations - Ebola screening Have you traveled outside of the country in the last 21 days: No Have you had contact with anyone from an Ebola affected area: No Have you been sick,other than usual withdrawal symptoms: No Do you have a fever: No - Review of Systems Constitutional: Chills, Loss of Appetite, Changes in sleep, Unintentional Wgt. Loss, Unexplained wgt Loss EENT: reports: Blurred Vision (EYE GLASSES), Hearing Loss (LEFT EAR) Respiratory: reports: No Symptoms reported Cardiac: reports: No Symptoms Reported GI: reports: Nausea, Poor Appetite, Poor Fluid Intake, Abdominal cramping : reports: No Symptoms Reported Musculoskeletal: reports: Muscle Weakness (BOTH LEGS) Integumentary: reports: No Symptoms Reported Neuro: reports: Tremors Endocrine: reports: No Symptoms Reported Hematology: reports: No Symptoms Reported Psychiatric: reports: Judgement Intact, Orientated x3, Depressed Other Systems: Reviewed and Negative Patient History - Patient Medical History Hx Anemia: No Hx Asthma: No Hx Chronic Obstructive Pulmonary Disease (COPD): No Hx Cancer: No Hx Cardiac Disorders: No Hx Congestive Heart Failure: No Hx Hypertension: No Hx Hypercholesterolemia: No Hx Pacemaker: No HX Cerebrovascular Accident: No Hx Seizures: No Hx Dementia: No Hx Diabetes: No Hx Gastrointestinal Disorders: No Hx Liver Disease: Yes (hep c treated) Hx Genitourinary Disorders: No Hx Sexually Transmitted Disorders: No Hx Renal Disease (ESRD): No Hx Thyroid Disease: No Hx Human Immunodeficiency Virus (HIV): Yes (since 1983 not compliant with medication) Hx Hepatitis C: Yes (since 1988 treated) Hx Depression: Yes Hx Suicide Attempt: No Hx Bipolar Disorder: No Hx Schizophrenia: No - Patient Surgical History Past Surgical History: Yes Hx Neurologic Surgery: No Hx Cataract Extraction: No Hx Cardiac Surgery: No Hx Lung Surgery: No Hx Breast Surgery: No Hx Breast Biopsy: No Hx Abdominal Surgery: No Hx Appendectomy: No Hx Cholecystectomy: No Hx Genitourinary Surgery: No Hx Orthopedic Surgery: No Other Surgical History: abscess, right arm in 11/2016 Anesthesia Reaction: No - PPD History Previous Implant?: Yes Documented Results: Positive w/o proof Implanted On Prior R Admission?: No PPD to be Administered?: No - Smoking Cessation Smoking history: Current every day smoker Have you smoked in the past 12 months: Yes Aproximately how many cigarettes per day: 10 Cigars Per Day: 0 Hx Chewing Tobacco Use: No Initiated information on smoking cessation: Yes 'Breaking Loose' booklet given: 01/11/17 - Substance & Tx. History Hx Alcohol Use: Yes Hx Substance Use: Yes Substance Use Type: Alcohol, Cocaine Hx Substance Use Treatment: Yes (11/16/16-12/07/16 [facility]) - Substances Abused Heroin Route: Injection Frequency: Daily Amount used: 10-15 bags Age of first use: 10 Date of Last Use: 01/10/17 Cocaine Route: Injection Frequency: Daily Amount used: $100 Age of first use: 20 Date of Last Use: 01/10/17 Alcohol-vodka/beer Route: Oral Frequency: Daily Amount used: 1 pt./3-6 pks. Age of first use: 13 Date of Last Use: 01/10/17 Family Disease History - Family Disease History Family Disease History: Diabetes: Father (alcohol,COLON [place]. ), Brother, Sister, [place]: Father, Other: Father, Mother ( ACCIDENT) Admission Physical Exam S - Vital Signs Vital Signs: Vital Signs - 24 hr 01/11/17 17:42 Temperature 98.3 F Pulse Rate 79 Respiratory 18 Rate Blood Pressure 148/95 - Physical General Appearance: Yes: Appropriately Dressed, Mild Distress, Thin, Tremorous, Irritable, Sweating, Anxious HEENTM: Yes: Hearing grossly Normal (LEFT EAR HARD OF HEARING), Normal ENT Inspection, Normocephalic, Normal Voice Respiratory: Yes: Chest Non-Tender, Lungs Clear, Normal Breath Sounds, No Respiratory Distress, No Accessory Muscle Use Neck: Yes: Supple, Trachea in good position Breast: Yes: Breasts Symetrical Cardiology: Yes: Regular Rhythm, Regular Rate, S1, S2 Abdominal: Yes: Non Tender, Soft Genitourinary: Yes: Within Normal Limits Back: Yes: Normal Inspection Musculoskeletal: Yes: Gait Steady, Back pain, Muscle weakness (BOTH LEGS) Extremities: Yes: Non-Tender, Tremors Neurological: Yes: Fully Oriented, Alert, Normal Mood/Affect, Normal Response Integumentary: Yes: Normal Color, Warm, Track Gunn Lymphatic: Yes: Within Normal Limits - Diagnostic (1) Alcohol dependence with uncomplicated withdrawal Current Visit: Yes Status: Acute (2) Nicotine dependence, cigarettes, uncomplicated Current Visit: Yes Status: Acute (3) Opioid dependence with withdrawal Current Visit: Yes Status: Acute (4) Positive PPD Current Visit: Yes Status: Resolved (5) Use of cane as ambulatory aid Current Visit: Yes Status: Chronic (6) Acquired immune deficiency syndrome (AIDS) Current Visit: Yes Status: Chronic Comment: not taking any medication at the moment (7) Asthma Current Visit: Yes Status: Chronic Qualifiers: Asthma severity: mild intermittent Asthma complication type: uncomplicated Qualified Code(s): J45.20 - Mild intermittent asthma, uncomplicated (8) Neuropathy Current Visit: No Status: Chronic (9) Weight loss Current Visit: Yes Status: Acute (10) Depression (emotion) Current Visit: Yes Status: Acute Qualifiers: Depression Type: dysthymia Qualified Code(s): F34.1 - Dysthymic disorder S Breath Alcohol Content Breath Alcohol Content: 0 Urine Drug Screen - Results Drug Screen Negative: No Urine Drug Screen Results: ANTONINO-Cocaine, OPI-Opiates, BZO-Benzodiazepines
[2017-01-11] MEDS ORDERED: MAGNESIUM CITRATE 300 ML BOTTLE PO PRN (18:55)
[2017-01-11] MEDS ORDERED: IBUPROFEN 400 MG TABLET (FP) PO PRN (18:55)
[2017-01-11] MEDS ORDERED: LOPERAMIDE HCL 2 MG CAPSULE PO PRN (18:55)
[2017-01-11] MEDS ORDERED: P-EPHED 60MG/TRIPROLIDI 2.5MG TABLET PO PRN (18:55)
[2017-01-11] MEDS ORDERED: METHADONE HCL 10 MG TABLET (FOR DETOX USE ONLY) PO ONE ×2 (18:55→23:00)
[2017-01-11] MEDS ORDERED: MENTHOL/PHENOL 1 EACH UD MM PRN (18:55)
[2017-01-11] MEDS ORDERED: ACETAMINOPHEN 325 MG TABLET (FP) PO PRN (18:55)
[2017-01-11] MEDS ORDERED: MAGNESIUM HYDROX 2400MG/30ML ORAL SUSPENSION 30 ML CUP PO PRN (18:55)
[2017-01-11] MEDS ORDERED: NICOTINE POLACRILEX 2 MG GUM BC PRN (18:55)
[2017-01-11] MEDS ORDERED: diphenhydrAMINE HCL 50 MG CAPSULE PO PRN (18:55)
[2017-01-11] MEDS ORDERED: guaiFENesin/D-METHORPHAN HB 10 ML UNIT-DOSE CUPS PO PRN (18:55)
[2017-01-11] MEDS ORDERED: MAG HYDROX/AL HYDROX/SIMETH 30 ML UNIT-DOSE CUP PO PRN (18:55)
[2017-01-11] MEDS ORDERED: chlordiazePOXIDE HCL 25 MG CAPSULE PO PRN (18:55)
[2017-01-11] MEDS ORDERED: ALBUTEROL SO4 6.7 GM HFA INHALER IH PRN (18:57)
[2017-01-11] MEDS: THIAMINE HCL 100 MG TABLET (FP) PO SCH (22:23)
[2017-01-11] MEDS: GABAPENTIN 400 MG CAPSULE (FP) PO SCH (22:23)
[2017-01-11] MEDS: chlordiazePOXIDE HCL 25 MG CAPSULE PO SCH (22:23)
[2017-01-11 23:55] LABS: URINE APPEARANCE CLEAR; URINE BILIRUBIN NEGATIVE (NEGATIVE); URINE BLOOD 1+ (NEGATIVE); URINE COLOR YELLOW; URINE GLUCOSE (UA) NEGATIVE (NEGATIVE); URINE KETONE NEGATIVE (NEGATIVE); URINE LEUK ESTERASE NEGATIVE (NEGATIVE); URINE NITRITE NEGATIVE (NEGATIVE); URINE UROBILINOGEN NEGATIVE mg/dL (0.2-1.0)
[2017-01-11 23:57] LABS: URINE PROTEIN 1+ (NEGATIVE)
[2017-01-12 00:05] LABS: URINE MUCUS RARE; URINE RBC 5 /hpf (0-3); URINE WBC 1 /hpf (3-5)
[2017-01-12] MEDS: chlordiazePOXIDE HCL 25 MG CAPSULE PO SCH ×4 (05:41→22:19)
[2017-01-12] MEDS: GABAPENTIN 400 MG CAPSULE (FP) PO SCH ×3 (05:41→22:18)
[2017-01-12] MEDS ORDERED: METHADONE HCL 10 MG TABLET (FOR DETOX USE ONLY) PO SCH (10:00)
[2017-01-12] MEDS: SULFAMETHOXAZOLE/TRIMETHOPRIM 800MG/160MG D.S. TABLET PO SCH (10:20)
[2017-01-12] MEDS: PRENATAL VITAMINS W/ FOLIC ACID TABLET (FP) PO SCH (10:20)
[2017-01-12] MEDS: NICOTINE 14 MG/24 HOURS TOPICAL PATCH TD SCH (10:20)
[2017-01-12 10:33] LABS: MCH 32.3 pg (25.7-33.7); MCHC 34.4 g/dl (32.0-35.9); MEAN CELL VOLUME 93.8 fl (80-96); MEAN PLT VOLUME 7.7 fl (7.5-11.1); PLATELET COUNT 245 K/MM3 (134-434); RDW 15.4 % (11.9-15.9); WHITE BLOOD COUNT 3.8 K/mm3 (4.0-10.0)
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
[2017-01-12 10:55] LABS: ALBUMIN 2.8 g/dl (3.4-5.0); ANION GAP 9 (8-16); CALCIUM 8.2 mg/dL (8.5-10.1); CO2 30 mmol/L (21-32); CREATININE 0.8 mg/dL (0.7-1.3); GLUCOSE,RANDOM 126 mg/dL (74-106); SGOT/AST 17 U/L (15-37); SGPT/ALT 16 U/L (12-78)
[2017-01-12 10:56] LABS: ALK PHOS 76 U/L (45-117); BILIRUBIN,TOTAL 0.4 mg/dL (0.2-1.0); TOT PROT 6.7 g/dl (6.4-8.2)
--- NOTE | 2017-01-12 12:00 | PN ---
[facility] CIWA - CIWA Score Nausea/Vomitin-Mild Nausea/No Vomiting Muscle Tremors: 4-Moderate,w/Arms Extend Anxiety: 3 Agitation: 1-Slight > Activity Paroxysmal Sweats: 3 Orientation: 0-Oriented Tacttile Disturbances: 2-Mild Itch/Numbness/Burn Auditory Disturbances: 2-Mild Harshness/Frighten Visual Disturbances: 0-None Headache: 0-None Present CIWA-Ar Total Score: 16 [facility] COWS - Scale Resting Pulse: 1= [place] 81-100 Sweatin= Chills/Flushing Restless Observation: 0= Sits Still Pupil Size: 0= Normal to Room Light Bone or Joint Aches: 2= Severe Diffuse Aches Runny Nose/ Eye Tearin= Runny Nose/Eyes GI Upset > 30mins: 1= Stomach Cramp Tremor Observation of Outstretched Hands: 2= Slight Tremor Visible Yawning Observation: 1= 1-2x During Session Anxiety or Irritability: 2=Irritable/Anxious Goose Flesh Skin: 3=Piloerection COWS Score: 15 S Progress Note (SOAP) Subjective: Interrupted sleep, Sweating, Tremors, Body aches, Constipation. Objective: PT. A & O X 3, OBSERVED AMBULATINFG ON UNIT WITH ASSISTANCE OF A CANE. NO ACUTE DISTREWSS. PT. DENIES CHEST PAIN. PT. REPORTS THAT, IN PAST, BP HAS ONLY BEEN ELEVATED DURING TIMES IN WHICH HE HAS BEEN DETOXING. 01/12/17 12:01 Vital Signs Temperature 98.9 F 01/12/17 09:41 Pulse Rate 81 01/12/17 09:41 Respiratory Rate 18 01/12/17 09:41 Blood Pressure 154/94 01/12/17 09:41 O2 Sat by Pulse Oximetry (%) Laboratory Tests 01/11/17 01/12/17 01/12/17 23:35 07:45 07:45 WBC 3.8 L RBC 3.31 L Hgb 10.7 L Hct 31.1 L MCV 93.8 MCH 32.3 MCHC 34.4 RDW 15.4 D Plt Count 245 D MPV 7.7 Sodium 141 Potassium 2.8 L* D Chloride 102 Carbon Dioxide 30 Anion Gap 9 BUN 18 D Creatinine 0.8 D Creat Clearance w eGFR > 60 Random Glucose 126 H D Calcium 8.2 L Total Bilirubin 0.4 D AST 17 ALT 16 Alkaline Phosphatase 76 Total Protein 6.7 Albumin 2.8 L Urine Color Yellow Urine Appearance Clear Urine pH 6.0 Urine Protein 1+ H Urine Glucose (UA) Negative Urine Ketones Negative Urine Blood 1+ H Urine Nitrite Negative Urine Bilirubin Negative Urine Urobilinogen Negative Ur Leukocyte Esterase Negative Urine RBC 5 Urine WBC 1 Urine Mucus Rare RPR Titer 01/12/17 07:45 WBC RBC Hgb Hct MCV MCH MCHC RDW Plt Count MPV Sodium Potassium Chloride Carbon Dioxide Anion Gap BUN Creatinine Creat Clearance w eGFR Random Glucose Calcium Total Bilirubin AST ALT Alkaline Phosphatase Total Protein Albumin Urine Color Urine Appearance Urine pH Urine Protein Urine Glucose (UA) Urine Ketones Urine Blood Urine Nitrite Urine Bilirubin Urine Urobilinogen Ur Leukocyte Esterase Urine RBC Urine WBC Urine Mucus RPR Titer Nonreactive LABS NOTED. 01/12/17 12:07 Assessment: 01/12/17 12:03 WITHDRAWAL SYMPTOMS. Plan: CONTINUE DETOX. K, 40 MEQ PO X 1 NOW, THEN 20 MEQ PO BID. RE-CHECK K LEVEL ON 01/14/2017. FEOSOL, 325 MG PO BIDWM. REPEAT UA FOR ADMISSION ABNORMALITIES (URINE BLOOD, RBC LEVELS). CONTINUE TO MONITOR BP.
[2017-01-12] MEDS ORDERED: POTASSIUM CHLORIDE TABS 20 MEQ TABLET.ER (FP) PO ONE (12:30)
[2017-01-12] MEDS: FERROUS SO4 325 MG TABLET (FP) PO SCH (17:38)
[2017-01-12 17:44] LABS: URINE APPEARANCE SLCLOUDY; URINE BILIRUBIN NEGATIVE (NEGATIVE); URINE BLOOD 1+ (NEGATIVE); URINE COLOR DKYELLOW; URINE GLUCOSE (UA) NEGATIVE (NEGATIVE); URINE KETONE NEGATIVE (NEGATIVE); URINE LEUK ESTERASE NEGATIVE (NEGATIVE); URINE NITRITE NEGATIVE (NEGATIVE)
[2017-01-12 17:50] LABS: URINE PROTEIN 1+ (NEGATIVE)
[2017-01-12 17:53] LABS: CALCIUM OXALATE CRYSTALS MANY /hpf (NONE SEEN); URINE BACTERIA RARE /hpf (NONE SEEN); URINE MUCUS RARE; URINE RBC 5 /hpf (0-3); URINE WBC 2 /hpf (3-5)
[2017-01-12] MEDS: POTASSIUM CHLORIDE ORAL LIQUID 20 MEQ/15 ML PO SCH (22:18)
[2017-01-12] MEDS: THIAMINE HCL 100 MG TABLET (FP) PO SCH (22:18)
[2017-01-13] MEDS: chlordiazePOXIDE HCL 25 MG CAPSULE PO SCH ×3 (05:57→17:23)
[2017-01-13] MEDS: GABAPENTIN 400 MG CAPSULE (FP) PO SCH ×2 (05:59→15:02)
[2017-01-13] MEDS: FERROUS SO4 325 MG TABLET (FP) PO SCH (07:41)
[2017-01-13] MEDS ORDERED: METHADONE HCL 5 MG TABLET (FOR DETOX USE ONLY) PO SCH (10:00)
[2017-01-13] MEDS: NICOTINE 14 MG/24 HOURS TOPICAL PATCH TD SCH (10:23)
[2017-01-13] MEDS: POTASSIUM CHLORIDE ORAL LIQUID 20 MEQ/15 ML PO SCH (10:23)
[2017-01-13] MEDS: PRENATAL VITAMINS W/ FOLIC ACID TABLET (FP) PO SCH (10:23)
[2017-01-13] MEDS: SULFAMETHOXAZOLE/TRIMETHOPRIM 800MG/160MG D.S. TABLET PO SCH (10:23)
--- NOTE | 2017-01-13 13:58 | EKG ---
Test Reason : Blood Pressure : / mmHG Vent. Rate : 066 BPM Atrial Rate : 066 BPM P-R Int : 152 ms QRS Dur : 094 ms QT Int : 428 ms P-R-T Axes : 053 061 056 degrees QTc Int : 448 ms NORMAL SINUS RHYTHM MODERATE VOLTAGE CRITERIA FOR LVH, MAY BE NORMAL VARIANT BORDERLINE ECG WHEN COMPARED WITH ECG OF 12-NOV-2016 16:26, NO SIGNIFICANT CHANGE WAS FOUND Confirmed by JASMIN DAMIAN, EMI ([id number]) on 01/13/2017 1:58:14 PM Referred By: Confirmed By:EMI CASTELLANOS MD
[2017-01-13 14:26] VITALS: BP 135/85; PULSE 80; TEMP 98.6
--- NOTE | 2017-01-13 16:16 | PN ---
S CIWA - CIWA Score Nausea/Vomitin Muscle Tremors: 4-Moderate,w/Arms Extend Anxiety: 4-Mod. Anxious/Guarded Agitation: 4-Moderately Restless Paroxysmal Sweats: 3 Orientation: 0-Oriented Tacttile Disturbances: 1-Very Mild Itch/Numbness Auditory Disturbances: 0-None Visual Disturbances: 0-None Headache: 2-Mild CIWA-Ar Total Score: 21 BHS COWS - Scale Resting Pulse: 0= [place] 80 or Below Sweatin=Flushed/Facial Moisture Restless Observation: 3= Extraneous Movement Pupil Size: 1= Pupils >than Normal Bone or Joint Aches: 2= Severe Diffuse Aches Runny Nose/ Eye Tearin= Runny Nose/Eyes GI Upset > 30mins: 2= Nausea/Diarrhea Tremor Observation of Outstretched Hands: 2= Slight Tremor Visible Yawning Observation: 1= 1-2x During Session Anxiety or Irritability: 2=Irritable/Anxious Goose Flesh Skin: 0=Smooth Skin COWS Score: 17 S Progress Note (SOAP) Subjective: Nausea, chills, tremor, interrupted sleep, anxious, restless Objective: 01/13/17 16:12 Last Vital Signs Temp Pulse Resp BP Pulse Ox 98.6 F 80 18 135/85 01/13/17 14:25 01/13/17 14:25 01/13/17 14:25 01/13/17 14:25 Laboratory Tests 01/11/17 01/12/17 01/12/17 23:35 07:45 07:45 WBC 3.8 L RBC 3.31 L Hgb 10.7 L Hct 31.1 L MCV 93.8 MCH 32.3 MCHC 34.4 RDW 15.4 D Plt Count 245 D MPV 7.7 Sodium 141 Potassium 2.8 L* D Chloride 102 Carbon Dioxide 30 Anion Gap 9 BUN 18 D Creatinine 0.8 D Creat Clearance w eGFR > 60 Random Glucose 126 H D Calcium 8.2 L Total Bilirubin 0.4 D AST 17 ALT 16 Alkaline Phosphatase 76 Total Protein 6.7 Albumin 2.8 L Urine Color Yellow Urine Appearance Clear Urine pH 6.0 Ur Specific [place] 1.020 Urine Protein 1+ H Urine Glucose (UA) Negative Urine Ketones Negative Urine Blood 1+ H Urine Nitrite Negative Urine Bilirubin Negative Urine Urobilinogen Negative Ur Leukocyte Esterase Negative Urine RBC 5 Urine WBC 1 Calcium Oxalate Crystal Urine Bacteria Urine Mucus Rare RPR Titer 01/12/17 01/12/17 07:45 14:23 WBC RBC Hgb Hct MCV MCH MCHC RDW Plt Count MPV Sodium Potassium Chloride Carbon Dioxide Anion Gap BUN Creatinine Creat Clearance w eGFR Random Glucose Calcium Total Bilirubin AST ALT Alkaline Phosphatase Total Protein Albumin Urine Color Dkyellow Urine Appearance Slcloudy Urine pH 7.0 Ur Specific [place] 1.015 Urine Protein 1+ H Urine Glucose (UA) Negative Urine Ketones Negative Urine Blood 1+ H Urine Nitrite Negative Urine Bilirubin Negative Urine Urobilinogen 2.0 Ur Leukocyte Esterase Negative Urine RBC 5 Urine WBC 2 Calcium Oxalate Crystal Many Urine Bacteria Rare Urine Mucus Rare RPR Titer Nonreactive Labs noted: abnormal UA, K level 2.8 Assessment: 01/13/17 16:13 Withdrawal symptoms Noted with hypokalemia and abnormal UA Plan: Continue detox Hypokalemia: supplemented, repeat serum K level in AM (ordered for BMP) Hyperglycemia: repeat fasting glucose, send A1c Abnormal UA: encouraged to drink lots of water, send urine cx, follow up with PCP in 1-2 weeks post discharge for further evaluation
[2017-01-13] MEDS ORDERED: chlordiazePOXIDE 5 MG CAPSULE PO SCH (23:00)
--- NOTE | 2017-01-14 09:29 | DS ---
[facility] Detox Discharge Summary Admission Date: 01/11/17 Discharge Date: 01/13/17 - History Present History: Alcohol Dependence, Cocaine Dependence, Opioid Dependence Pertinent Past History: Asthma Hep C - Physical Exam Results Vital Signs: Vital Signs Temperature 98.6 F 01/13/17 14:25 Pulse Rate 80 01/13/17 14:25 Respiratory Rate 18 01/13/17 14:25 Blood Pressure 135/85 01/13/17 14:25 O2 Sat by Pulse Oximetry (%) Pertinent Admission Physical Exam Findings: Withdrawal sx. Laboratory Last Values WBC 3.8 K/mm3 (4.0-10.0) L 01/12/17 07:45 RBC 3.31 M/mm3 (4.00-5.60) L 01/12/17 07:45 Hgb 10.7 GM/dL (11.7-16.9) L 01/12/17 07:45 Hct 31.1 % (35.4-49) L 01/12/17 07:45 MCV 93.8 fl (80-96) 01/12/17 07:45 MCH 32.3 pg (25.7-33.7) 01/12/17 07:45 MCHC 34.4 g/dl (32.0-35.9) 01/12/17 07:45 RDW 15.4 % (11.9-15.9) D 01/12/17 07:45 Plt Count 245 K/MM3 (134-434) D 01/12/17 07:45 MPV 7.7 fl (7.5-11.1) 01/12/17 07:45 Sodium 141 mmol/L (136-145) 01/12/17 07:45 Potassium 2.8 mmol/L (3.5-5.1) L* D 01/12/17 07:45 Chloride 102 mmol/L (98-107) 01/12/17 07:45 Carbon Dioxide 30 mmol/L (21-32) 01/12/17 07:45 Anion Gap 9 (8-16) 01/12/17 07:45 BUN 18 mg/dL (7-18) D 01/12/17 07:45 Creatinine 0.8 mg/dL (0.7-1.3) D 01/12/17 07:45 Creat Clearance w eGFR > 60 (>60) 01/12/17 07:45 Random Glucose 126 mg/dL (74-106) H D 01/12/17 07:45 Calcium 8.2 mg/dL (8.5-10.1) L 01/12/17 07:45 Total Bilirubin 0.4 mg/dL (0.2-1.0) D 01/12/17 07:45 AST 17 U/L (15-37) 01/12/17 07:45 ALT 16 U/L (12-78) 01/12/17 07:45 Alkaline Phosphatase 76 U/L (45-117) 01/12/17 07:45 Total Protein 6.7 g/dl (6.4-8.2) 01/12/17 07:45 Albumin 2.8 g/dl (3.4-5.0) L 01/12/17 07:45 Urine Color Dkyellow 01/12/17 14:23 Urine Appearance Slcloudy 01/12/17 14:23 Urine pH 7.0 (5.0-8.0) 01/12/17 14:23 Ur Specific [place] 1.015 (1.005-1.025) 01/12/17 14:23 Urine Protein 1+ (NEGATIVE) H 01/12/17 14:23 Urine Glucose (UA) Negative (NEGATIVE) 01/12/17 14:23 Urine Ketones Negative (NEGATIVE) 01/12/17 14:23 Urine Blood 1+ (NEGATIVE) H 01/12/17 14:23 Urine Nitrite Negative (NEGATIVE) 01/12/17 14:23 Urine Bilirubin Negative (NEGATIVE) 01/12/17 14:23 Urine Urobilinogen 2.0 mg/dL (0.2-1.0) 01/12/17 14:23 Ur Leukocyte Esterase Negative (NEGATIVE) 01/12/17 14:23 Urine RBC 5 /hpf (0-3) 01/12/17 14:23 Urine WBC 2 /hpf (3-5) 01/12/17 14:23 Calcium Oxalate Crystal Many /hpf (NONE SEEN) 01/12/17 14:23 Urine Bacteria Rare /hpf (NONE SEEN) 01/12/17 14:23 Urine Mucus Rare 01/12/17 14:23 RPR Titer Nonreactive (NONREACTIVE) 01/12/17 07:45 labs noted - Treatment Patient has Accepted a Rehab Referral to: Self Help Groups - Medication Discharge Medications: Ambulatory Orders Albuterol Sulfate Inhaler - [Ventolin HFA Inhaler -] 2 puff IH Q4H PRN #1 inhaler 12/07/16 Gabapentin [Neurontin -] 300 mg PO Q8H #90 capsule 12/07/16 Ibuprofen [Motrin -] 800 mg PO Q6H PRN #20 tablet 12/07/16 Sulfamethoxazole/Trimethoprim [Bactrim DS -] 1 each PO DAILY #30 tab 12/07/16 Quetiapine Fumarate [Seroquel -] 400 mg PO HS 01/11/17 - Diagnosis (1) Alcohol dependence with uncomplicated withdrawal Status: Acute (2) Cocaine dependence Status: Acute (3) Insomnia Status: Acute (4) Nicotine dependence, cigarettes, uncomplicated Status: Acute (5) Opioid dependence with withdrawal Status: Acute (6) Substance induced mood disorder Status: Acute (7) Acquired immune deficiency syndrome (AIDS) Status: Chronic (8) Asthma Status: Chronic Qualifiers: Asthma severity: mild intermittent Asthma complication type: uncomplicated Qualified Code(s): J45.20 - Mild intermittent asthma, uncomplicated (9) Hepatitis C carrier Status: Chronic - AMA Did Patient Leave Against Medical Advice: Yes
[2017-01-14] MEDS ORDERED: chlordiazePOXIDE HCL 10 MG CAPSULE PO SCH (23:00)
[2017-01-15] MEDS ORDERED: METHADONE HCL 10 MG TABLET (FOR DETOX USE ONLY) PO SCH (10:00)
[2017-01-16] MEDS ORDERED: METHADONE HCL 5 MG TABLET (FOR DETOX USE ONLY) PO SCH (06:00)
== END 2017-01-13 05:08 | disposition left against medical advice (07) | DRG 770 ==
LOC: YASAS 16:10 → Y3N 18:06
PROVIDERS: ADMIT Internal Medicine; ATTEND Internal Medicine
PROC: HZ2ZZZZ Detoxification Services for Substance Abuse Treatment (ICD-10-PCS; principal; 2017-01-11)
DX: F11.23 Opioid dependence with withdrawal (principal); F10.230 Alcohol dependence with withdrawal, uncomplicated; F14.20 Cocaine dependence, uncomplicated; F17.210 Nicotine dependence, cigarettes, uncomplicated; F31.9 Bipolar disorder, unspecified; F19.24 Other psychoactive substance dependence with psychoactive substance-induced mood disorder; E87.6 Hypokalemia; G47.00 Insomnia, unspecified; J45.20 Mild intermittent asthma, uncomplicated; B18.2 Chronic viral hepatitis C; G62.9 Polyneuropathy, unspecified; R82.90 Unspecified abnormal findings in urine; R76.11 Nonspecific reaction to tuberculin skin test without active tuberculosis; R26.2 Difficulty in walking, not elsewhere classified; Z99.89 Dependence on other enabling machines and devices; Z91.013 Allergy to seafood; Z87.898 Personal history of other specified conditions
CPT/HCPCS: 36415; 80053; 81003; 81015; 85027; 86593; 93005; 93010

== ENCOUNTER 2017-03-06 10:10 | Inpatient (IN) | payer OTHER ==
[2017-03-06 12:17] VITALS: BMI 20.9
[2017-03-06] MEDS ORDERED: LOPERAMIDE HCL 2 MG CAPSULE PO PRN (12:29)
[2017-03-06] MEDS ORDERED: P-EPHED 60MG/TRIPROLIDI 2.5MG TABLET PO PRN (12:29)
[2017-03-06] MEDS ORDERED: MAGNESIUM HYDROX 2400MG/30ML ORAL SUSPENSION 30 ML CUP PO PRN (12:29)
[2017-03-06] MEDS ORDERED: hydrOXYzine PAMOATE 50 MG CAPSULE (FP) PO PRN (12:29)
[2017-03-06] MEDS ORDERED: diphenhydrAMINE HCL 50 MG CAPSULE PO PRN (12:29)
[2017-03-06] MEDS ORDERED: NICOTINE POLACRILEX 2 MG GUM BUC PRN (12:29)
[2017-03-06] MEDS ORDERED: diazePAM 5 MG TABLET PO PRN (12:29)
[2017-03-06] MEDS ORDERED: MENTHOL/PHENOL 1 EACH UD MM PRN (12:29)
[2017-03-06] MEDS ORDERED: guaiFENesin/D-METHORPHAN HB 10 ML UNIT-DOSE CUPS PO PRN (12:29)
[2017-03-06] MEDS ORDERED: MAGNESIUM CITRATE 300 ML BOTTLE PO PRN (12:29)
[2017-03-06] MEDS ORDERED: MAG HYDROX/AL HYDROX/SIMETH 30 ML UNIT-DOSE CUP PO PRN (12:29)
[2017-03-06] MEDS ORDERED: ACETAMINOPHEN 325 MG TABLET (FP) PO PRN (12:29)
--- NOTE | 2017-03-06 12:29 | HP ---
COWS - Scale Resting Pulse: 1= [place] 81-100 Sweatin= Chills/Flushing Restless Observation: 1= Difficult to Sit Still Pupil Size: 1= Pupils >than Normal Bone or Joint Aches: 1= Mild Discomfort Runny Nose/ Eye Tearin= Nasal Congestion GI Upset > 30mins: 1= Stomach Cramp Tremor Observation: 2= Slight Tremor Visible Yawning Observation: 1= 1-2x During Session Anxiety or Irritability: 1=Feels Anxious/Irritable Goose Flesh Skin: 3=Piloerection COWS Score: 14 CIWA Score - CIWA Score Nausea/Vomitin Muscle Tremors: 4-Moderate,w/Arms Extend Anxiety: 3 Agitation: 3 Paroxysmal Sweats: 3 Orientation: 0-Oriented Tacttile Disturbances: 0-None Auditory Disturbances: 0-None Visual Disturbances: 0-None Headache: 0-None Present CIWA-Ar Total Score: 16 Admission ROS S - HPI Chief Complaint: alcohol and heorin withdrawal sx Allergies/Adverse Reactions: Allergies Allergy/AdvReac Type Severity Reaction Status Date / Time fish derived Allergy Intermediate Rash Verified 03/06/17 11:40 No Known Drug Allergies Allergy Verified 03/06/17 11:40 History of Present Illness: 62 yo ma with[facility] admissions [facility] PMHX idu heroin, alcohol daily use 2 pints spirits and 2 6 packs daily, 2 bundles heroin , crack cocaoine $100 smokes 10 cigs daily last used last night PMHX hiv+ not on meds, Hep c+, PPD+, asthma, takes seroquel for sleep but does not report any psych illness no h/o seizurew, DTs, suicidal ideation or suicide attempts in the past here today because his use has increased and he needs to stop. Exam Limitations: No Limitations - Ebola screening Have you traveled outside of the country in the last 21 days: No Have you had contact with anyone from an Ebola affected area: No Have you been sick,other than usual withdrawal symptoms: No - Review of Systems Constitutional: Chills, Diaphoresis, Changes in sleep, Weakness, Unintentional Wgt. Loss EENT: reports: Nose Congestion Respiratory: reports: SOB with Exertion, Wheezing (asthma) Cardiac: reports: No Symptoms Reported GI: reports: Nausea, Poor Appetite, Poor Fluid Intake, Indigestion, Abdominal cramping : reports: No Symptoms Reported Musculoskeletal: reports: Back Pain (withdrawal sx), Joint Pain, Muscle Pain, Muscle Weakness Integumentary: reports: Flushing, Sweating Neuro: reports: Headache, Numbness, Tingling, Tremors, Weakness, Unsteady Gait Endocrine: reports: No Symptoms Reported Hematology: reports: No Symptoms Reported Psychiatric: reports: Judgement Intact, Mood/Affect Appropiate, Orientated x3, Anxious, Depressed Other Systems: Reviewed and Negative Patient History - Patient Medical History Hx Anemia: No Hx Asthma: Yes Hx Chronic Obstructive Pulmonary Disease (COPD): No Hx Cancer: No Hx Cardiac Disorders: No Hx Congestive Heart Failure: No Hx Hypertension: No Hx Hypercholesterolemia: No Hx Pacemaker: No HX Cerebrovascular Accident: No Hx Seizures: No Hx Dementia: No Hx Diabetes: No Hx Gastrointestinal Disorders: No Hx Liver Disease: Yes (hep c treated) Hx Genitourinary Disorders: No Hx Sexually Transmitted Disorders: No Hx Renal Disease (ESRD): No Hx Thyroid Disease: No Hx Human Immunodeficiency Virus (HIV): Yes (since 1983 not compliant with medication) Hx Hepatitis C: Yes (since 1988 treated) Hx Depression: Yes (on seroquel) Hx Suicide Attempt: No Hx Bipolar Disorder: No Hx Schizophrenia: No - Patient Surgical History Past Surgical History: Yes Hx Neurologic Surgery: No Hx Cataract Extraction: No Hx Cardiac Surgery: No Hx Lung Surgery: No Hx Breast Surgery: No Hx Breast Biopsy: No Hx Abdominal Surgery: No Hx Appendectomy: No Hx Cholecystectomy: No Hx Genitourinary Surgery: No Hx Section: No Hx Orthopedic Surgery: No Hx Hysterectomy: No Other Surgical History: abscess, right arm in 11/2016 Anesthesia Reaction: No - PPD History Previous Implant?: Yes Documented Results: Positive w/o proof Implanted On Prior [facility] Admission?: No Results: CXR neg for tb PPD to be Administered?: No - Reproductive History Patient is a Female of Child Bearing Age (11 -55 yrs old): No Patient : No - Smoking Cessation Smoking history: Current every day smoker Have you smoked in the past 12 months: Yes Aproximately how many cigarettes per day: 10 Cigars Per Day: 0 Hx Chewing Tobacco Use: No Initiated information on smoking cessation: Yes 'Breaking Loose' booklet given: 03/06/17 - Substance & Tx. History Hx Alcohol Use: Yes Hx Substance Use: Yes Substance Use Type: Alcohol, Cocaine, Heroin, Opiates, Prescribed Hx Substance Use Treatment: Yes ([facility] [place] detox and rehab) - Substances Abused Heroin Route: Injection Frequency: Daily Amount used: 15-20 bags Age of first use: 10 Date of Last Use: 03/05/17 Cocaine Route: Injection Frequency: Daily Amount used: $300 Age of first use: 20 Date of Last Use: 03/05/17 Alcohol-vodka/beer Route: Oral Frequency: Daily Amount used: 2 pts./2-6 pks. Age of first use: 13 Date of Last Use: 03/05/17 Family Disease History - Family Disease History Family Disease History: Diabetes: Father (alcohol,COLON [place]. ), Brother, Sister, [place]: Father, Other: Father, Mother ( ACCIDENT) Admission Physical Exam S - Vital Signs Vital Signs: Vital Signs - 24 hr 03/06/17 11:52 Temperature 96.2 F L Pulse Rate 83 Respiratory 20 Rate Blood Pressure 153/98 - Physical General Appearance: Yes: Nourished, Disheveled, Mild Distress, Thin, Tremorous, Irritable, Sweating, Anxious HEENTM: Yes: EOMI, Hearing grossly Normal, Normal ENT Inspection, Normocephalic , Normal Voice, NIKI, Pharynx Normal, Nasal Congestion, Rhinorrhea Respiratory: Yes: Within Normal Limits, Chest Non-Tender, Lungs Clear, Normal Breath Sounds, No Respiratory Distress, No Accessory Muscle Use Neck: Yes: Within Normal Limits, No masses,lesions,Nodules, Supple, Trachea in good position Breast: Yes: Breast Exam Deferred Cardiology: Yes: Within Normal Limits, Regular Rhythm, Regular Rate, S1, S2 Abdominal: Yes: Normal Bowel Sounds, Non Tender, Flat, Soft, Increased Bowel Sounds Genitourinary: Yes: Within Normal Limits Back: Yes: Normal Inspection, Muscle Spasm, Vertebral Tenderness Musculoskeletal: Yes: full range of Motion, Gait Steady, Pelvis Stable Extremities: Yes: Normal Capillary Refill, Normal Inspection, Normal Range of Motion, Non-Tender, Tremors, Swelling (left hand, no erythema, from missed injection,no abscess noted) Neurological: Yes: pallet stone positioner II-XII NML intact, Fully Oriented, Motor Strength 5/5, Normal Response, Depressed Affect Integumentary: Yes: Normal Color, Warm, Diaphoresis, Moist, Track Gunn, Other ( scar from i and d injection abscess right) - Addiitonal Findings: withdrawal sx - Diagnostic (1) Alcohol dependence with uncomplicated withdrawal Current Visit: Yes Status: Acute (2) Cocaine dependence Current Visit: Yes Status: Acute (3) Insomnia Current Visit: No Status: Acute (4) Nicotine dependence, cigarettes, uncomplicated Current Visit: Yes Status: Acute (5) Opioid dependence with withdrawal Current Visit: Yes Status: Acute (6) Substance induced mood disorder Current Visit: Yes Status: Acute (7) Asthma Current Visit: No Status: Inactive Qualifiers: Asthma severity: mild intermittent Asthma complication type: uncomplicated (8) Back ache Current Visit: Yes Status: Acute Qualifiers: Back pain location: back pain in unspecified location Back pain laterality: unspecified (9) Bipolar disorder Current Visit: No Status: Inactive (10) Hepatitis C carrier Current Visit: No Status: Inactive (11) Neuropathy Current Visit: Yes Status: Acute (12) Positive PPD, treated Current Visit: No Status: Inactive (13) Cellulitis of hand without finger or thumb, left Current Visit: Yes Status: Acute Cleared for Admission S - Detox or Rehab [facility] Level of Care: Medically Managed Detox Regimen/Protocol: Methadone/Valium S Breath Alcohol Content Breath Alcohol Content: 0.008 Urine Drug Screen - Results Drug Screen Negative: No Urine Drug Screen Results: ANTONINO-Cocaine, OPI-Opiates
[2017-03-06] MEDS ORDERED: ALBUTEROL SO4 18 GM HFA INHALER IH PRN (12:31)
[2017-03-06] MEDS ORDERED: diazePAM 5 MG TABLET PO ONE (14:11)
[2017-03-06] MEDS ORDERED: METHADONE HCL 10 MG TABLET (FOR DETOX USE ONLY) PO ONE ×2 (14:12→23:00)
[2017-03-06] MEDS: GABAPENTIN 400 MG CAPSULE (FP) PO SCH ×2 (15:17→22:27)
[2017-03-06] MEDS: diazePAM 5 MG TABLET PO SCH ×2 (15:18→22:27)
[2017-03-06] MEDS: NICOTINE 14 MG/24 HOURS TOPICAL PATCH TD SCH (15:18)
[2017-03-06] MEDS: SULFAMETHOXAZOLE/TRIMETHOPRIM 800MG/160MG D.S. TABLET PO SCH (15:18)
[2017-03-06 21:04] LABS: URINE APPEARANCE SLCLOUDY; URINE BILIRUBIN NEGATIVE (NEGATIVE); URINE BLOOD 2+ (NEGATIVE); URINE COLOR YELLOW; URINE GLUCOSE (UA) NEGATIVE (NEGATIVE); URINE KETONE NEGATIVE (NEGATIVE); URINE LEUK ESTERASE NEGATIVE (NEGATIVE); URINE NITRITE NEGATIVE (NEGATIVE); URINE PROTEIN 2+ (NEGATIVE); URINE UROBILINOGEN NEGATIVE mg/dL (0.2-1.0)
[2017-03-06 21:09] LABS: URINE MUCUS RARE; URINE RBC 52 /hpf (0-3); URINE WBC 2 /hpf (3-5)
[2017-03-06] MEDS ORDERED: QUEtiapine FUMARATE 100 MG TABLET (FP) PO SCH (22:00)
[2017-03-06] MEDS: THIAMINE HCL 100 MG TABLET (FP) PO SCH (22:27)
[2017-03-06] MEDS: ZOLPIDEM TARTRATE 10 MG TABLET (PARK CARE ONLY) PO PRN (22:27)
[2017-03-07] MEDS: IBUPROFEN 400 MG TABLET (FP) PO PRN (01:41)
[2017-03-07] MEDS: diazePAM 5 MG TABLET PO SCH ×3 (05:44→22:10)
[2017-03-07] MEDS: GABAPENTIN 400 MG CAPSULE (FP) PO SCH ×4 (05:44→22:09)
[2017-03-07] MEDS: LEVOFLOXACIN 250 MG TABLET (FP) PO SCH (07:38)
[2017-03-07] MEDS ORDERED: METHADONE HCL 10 MG TABLET (FOR DETOX USE ONLY) PO SCH (10:00)
[2017-03-07 10:13] LABS: MCH 34.7 pg (25.7-33.7); MCHC 34.9 g/dl (32.0-35.9); MEAN CELL VOLUME 99.3 fl (80-96); MEAN PLT VOLUME 8.7 fl (7.5-11.1); PLATELET COUNT 154 K/MM3 (134-434); RDW 14.5 % (11.9-15.9); WHITE BLOOD COUNT 2.9 K/mm3 (4.0-10.0)
--- NOTE | 2017-03-07 10:26 | CONSULT ---
[facility] Psychiatric Consult - Data Date of interview: 03/07/17 Admission source: [facility] Identifying data: The patient is 62 years old H father of 3,undomiciled ,supported by [facility] seeking alcohol,opioid and cocaine detox.. Substance Abuse History: Patient reports using heroin since 10 yeRS OLD, CURRENTLY ABOUT 20 BAGS iv DAILY,COCAINE/CRACK SINCE 20 YEARS OLD,DRINKING HEAVILY. Medical History: Significant for HIV+,AIDS,Hep C,BA,Neuropathy. Psychiatric History: Patient reports episodes of depressed mood,anxietymHe was seen by psychiatrist years ago and was told he has bipolar disorder.Reports taking Zoloft prescribed by psychiatrist while in detox/inpatient rehabilitation treatment.patient is willing to restart Zoloft 50 mg po daily. Physical/Sexual Abuse/Trauma History: not willing to discuss Mental Status Exam - Mental Status Exam Alert and Oriented to: Time, Place, Person Cognitive Function: Grossly Intact Patient Appearance: Unkempt Mood: Sad Affect: Mood Congruent, Labile Patient Behavior: Appropriate, Cooperative Speech Pattern: Unclear, Delayed Voice Loudness: Normal Thought Process: Goal Oriented Thought Disorder: Not Present Hallucinations: Denies Suicidal Ideation: Denies Homicidal Ideation: Denies Insight/Judgement: Fair Sleep: Fair Appetite: Fair Muscle strength/Tone: Normal Gait/Station: Normal Psychiatric Findings - Problem List ([place] 1, 2,3) (1) Cocaine dependence Current Visit: Yes Status: Chronic (2) Neuropathy Current Visit: Yes Status: Chronic (3) Nicotine dependence, cigarettes, uncomplicated Current Visit: Yes Status: Chronic (4) Opioid dependence with withdrawal Current Visit: Yes Status: Acute (5) Substance induced mood disorder Current Visit: Yes Status: Chronic (6) Acquired immune deficiency syndrome (AIDS) Current Visit: No Status: Chronic Comment: not taking any medication at the moment (7) Arthritis Current Visit: Yes Status: Chronic (8) Weight loss Current Visit: Yes Status: Acute (9) Alcohol dependence in controlled environment Current Visit: Yes Status: Chronic - Initial Treatment Plan Initial Treatment Plan: Zoloft 50 mg po daily. Will monitor progress.
[2017-03-07 11:13] LABS: ALK PHOS 76 U/L (45-117); ANION GAP 8 (8-16); BILIRUBIN,TOTAL 0.4 mg/dL (0.2-1.0); CALCIUM 8.3 mg/dL (8.5-10.1); CO2 26 mmol/L (21-32); GLUCOSE,RANDOM 105 mg/dL (74-106); SGOT/AST 83 U/L (15-37); SGPT/ALT 37 U/L (12-78); TOT PROT 7.1 g/dl (6.4-8.2)
[2017-03-07] MEDS: SULFAMETHOXAZOLE/TRIMETHOPRIM 800MG/160MG D.S. TABLET PO SCH (11:53)
[2017-03-07] MEDS: PRENATAL VITAMINS W/ FOLIC ACID TABLET (FP) PO SCH (11:53)
[2017-03-07] MEDS: SERTRALINE HCL 50 MG TABLET (FP) PO SCH (11:57)
[2017-03-07] MEDS ORDERED: FLU VACCINE QUAD 60 MCG/0.5 ML (MDV 17-18) IM ONE (12:00)
--- NOTE | 2017-03-07 12:22 | PN ---
S CIWA - CIWA Score Nausea/Vomitin Muscle Tremors: 3 Anxiety: 3 Agitation: 2 Paroxysmal Sweats: 1-Minimal Palms Moist Orientation: 0-Oriented Tacttile Disturbances: 1-Very Mild Itch/Numbness Auditory Disturbances: 1-Very Mild Visual Disturbances: 0-None Headache: 2-Mild CIWA-Ar Total Score: 16 BHS COWS - Scale Resting Pulse: 4= NM > 121 Sweatin= Chills/Flushing Restless Observation: 3= Extraneous Movement Pupil Size: 1= Pupils >than Normal Bone or Joint Aches: 2= Severe Diffuse Aches Runny Nose/ Eye Tearin= Runny Nose/Eyes GI Upset > 30mins: 2= Nausea/Diarrhea Tremor Observation of Outstretched Hands: 2= Slight Tremor Visible Yawning Observation: 1= 1-2x During Session Anxiety or Irritability: 2=Irritable/Anxious Goose Flesh Skin: 0=Smooth Skin COWS Score: 20 BHS Progress Note (SOAP) Subjective: ALERT,IRRITABLE,ANXIOUS,INTERRUPTED SLEEP,TREMOR,PAIN IN THE BODY AND BACK Objective: 03/07/17 12:23 Vital Signs Temperature 97.6 F 03/07/17 06:30 Pulse Rate 71 03/07/17 06:30 Respiratory Rate 18 03/07/17 06:30 Blood Pressure 160/105 03/07/17 06:30 O2 Sat by Pulse Oximetry (%) RKG NSR,NORMAL ECG 71/MIN Laboratory Last Values WBC 2.9 K/mm3 (4.0-10.0) L 03/07/17 07:00 RBC 3.16 M/mm3 (4.00-5.60) L 03/07/17 07:00 Hgb 10.9 GM/dL (11.7-16.9) L 03/07/17 07:00 Hct 31.4 % (35.4-49) L 03/07/17 07:00 MCV 99.3 fl (80-96) H 03/07/17 07:00 MCH 34.7 pg (25.7-33.7) H 03/07/17 07:00 MCHC 34.9 g/dl (32.0-35.9) 03/07/17 07:00 RDW 14.5 % (11.9-15.9) 03/07/17 07:00 Plt Count 154 K/MM3 (134-434) D 03/07/17 07:00 MPV 8.7 fl (7.5-11.1) D 03/07/17 07:00 Sodium 143 mmol/L (136-145) 03/07/17 07:00 Potassium 3.1 mmol/L (3.5-5.1) L 03/07/17 07:00 Chloride 109 mmol/L (98-107) H 03/07/17 07:00 Carbon Dioxide 26 mmol/L (21-32) 03/07/17 07:00 Anion Gap 8 (8-16) 03/07/17 07:00 BUN 17 mg/dL (7-18) 03/07/17 07:00 Creatinine 1.0 mg/dL (0.7-1.3) D 03/07/17 07:00 Creat Clearance w eGFR > 60 (>60) 03/07/17 07:00 Random Glucose 105 mg/dL (74-106) 03/07/17 07:00 Calcium 8.3 mg/dL (8.5-10.1) L 03/07/17 07:00 Total Bilirubin 0.4 mg/dL (0.2-1.0) 03/07/17 07:00 AST 83 U/L (15-37) H D 03/07/17 07:00 ALT 37 U/L (12-78) D 03/07/17 07:00 Alkaline Phosphatase 76 U/L (45-117) 03/07/17 07:00 Total Protein 7.1 g/dl (6.4-8.2) 03/07/17 07:00 Albumin 3.0 g/dl (3.4-5.0) L 03/07/17 07:00 Urine Color Yellow 03/06/17 18:44 Urine Appearance Slcloudy 03/06/17 18:44 Urine pH 5.0 (5.0-8.0) D 03/06/17 18:44 Ur Specific [place] 1.025 (1.005-1.025) 03/06/17 18:44 Urine Protein 2+ (NEGATIVE) H 03/06/17 18:44 Urine Glucose (UA) Negative (NEGATIVE) 03/06/17 18:44 Urine Ketones Negative (NEGATIVE) 03/06/17 18:44 Urine Blood 2+ (NEGATIVE) H 03/06/17 18:44 Urine Nitrite Negative (NEGATIVE) 03/06/17 18:44 Urine Bilirubin Negative (NEGATIVE) 03/06/17 18:44 Urine Urobilinogen Negative mg/dL (0.2-1.0) 03/06/17 18:44 Urine RBC 52 /hpf (0-3) 03/06/17 18:44 Urine WBC 2 /hpf (3-5) 03/06/17 18:44 Urine Mucus Rare 03/06/17 18:44 RPR Titer Nonreactive (NONREACTIVE) 03/07/17 07:00 Assessment: 03/07/17 12:25 WITHDRAWAL SYMPTOM Plan: CONTINUE DETOX,REPEAT UA,KDUR 20 MEQ PO BID FOR HYPOKALEMIA K IS 3.1 REPEAT CBC,CMP IN AM
[2017-03-07] MEDS: NICOTINE 14 MG/24 HOURS TOPICAL PATCH TD SCH (12:48)
[2017-03-07] MEDS: POTASSIUM CHLORIDE TABS 20 MEQ TABLET.ER (FP) PO SCH ×2 (12:48→22:09)
--- NOTE | 2017-03-07 14:24 | EKG ---
Test Reason : Blood Pressure : / mmHG Vent. Rate : 071 BPM Atrial Rate : 071 BPM P-R Int : 164 ms QRS Dur : 098 ms QT Int : 414 ms P-R-T Axes : 064 057 040 degrees QTc Int : 449 ms NORMAL SINUS RHYTHM NORMAL ECG WHEN COMPARED WITH ECG OF 11-JAN-2017 20:00, NO SIGNIFICANT CHANGE WAS FOUND Confirmed by BIJAN DURAN MD ([id number]) on 03/07/2017 2:23:49 PM Referred By: Confirmed By:BIJAN DURAN MD
--- NOTE | 2017-03-07 22:08 | PN ---
BHS Progress Note Note: received nurse call that the patient requests a cane for ambulation continue detox
[2017-03-07] MEDS: THIAMINE HCL 100 MG TABLET (FP) PO SCH (22:09)
[2017-03-07] MEDS: QUEtiapine FUMARATE 100 MG TABLET (FP) PO SCH (22:10)
[2017-03-08] MEDS: GABAPENTIN 400 MG CAPSULE (FP) PO SCH ×3 (06:50→22:00)
[2017-03-08 09:48] LABS: MCH 33.1 pg (25.7-33.7); MCHC 33.6 g/dl (32.0-35.9); MEAN CELL VOLUME 98.4 fl (80-96); MEAN PLT VOLUME 8.6 fl (7.5-11.1); PLATELET COUNT 128 K/MM3 (134-434); RDW 14.8 % (11.9-15.9); WHITE BLOOD COUNT 2.1 K/mm3 (4.0-10.0)
[2017-03-08 10:10] LABS: ALBUMIN 2.6 g/dl (3.4-5.0); ALK PHOS 66 U/L (45-117); ANION GAP 6 (8-16); BILIRUBIN,TOTAL 0.4 mg/dL (0.2-1.0); CALCIUM 8.1 mg/dL (8.5-10.1); CO2 25 mmol/L (21-32); CREATININE 0.8 mg/dL (0.7-1.3); GLUCOSE,RANDOM 82 mg/dL (74-106); SGOT/AST 50 U/L (15-37); SGPT/ALT 29 U/L (12-78); TOT PROT 6.4 g/dl (6.4-8.2)
[2017-03-08] MEDS: PRENATAL VITAMINS W/ FOLIC ACID TABLET (FP) PO SCH (10:50)
[2017-03-08] MEDS: LEVOFLOXACIN 250 MG TABLET (FP) PO SCH (10:51)
[2017-03-08] MEDS: METHADONE HCL 5 MG TABLET (FOR DETOX USE ONLY) PO SCH (10:51)
[2017-03-08] MEDS: NICOTINE 14 MG/24 HOURS TOPICAL PATCH TD SCH (10:51)
[2017-03-08] MEDS: SERTRALINE HCL 50 MG TABLET (FP) PO SCH (10:51)
[2017-03-08] MEDS: POTASSIUM CHLORIDE TABS 20 MEQ TABLET.ER (FP) PO SCH ×2 (10:51→22:01)
[2017-03-08] MEDS: diazePAM 5 MG TABLET PO SCH ×2 (10:51→22:01)
[2017-03-08] MEDS: SULFAMETHOXAZOLE/TRIMETHOPRIM 800MG/160MG D.S. TABLET PO SCH (10:51)
--- NOTE | 2017-03-08 10:56 | PN ---
[facility] CIWA - CIWA Score Nausea/Vomitin Muscle Tremors: 3 Anxiety: 2 Agitation: 2 Paroxysmal Sweats: 1-Minimal Palms Moist Orientation: 0-Oriented Tacttile Disturbances: 1-Very Mild Itch/Numbness Auditory Disturbances: 1-Very Mild Visual Disturbances: 0-None Headache: 2-Mild CIWA-Ar Total Score: 15 BHS COWS - Scale Resting Pulse: 1= [place] 81-100 Sweatin= Chills/Flushing Restless Observation: 3= Extraneous Movement Pupil Size: 1= Pupils >than Normal Bone or Joint Aches: 2= Severe Diffuse Aches Runny Nose/ Eye Tearin= Runny Nose/Eyes GI Upset > 30mins: 2= Nausea/Diarrhea Tremor Observation of Outstretched Hands: 2= Slight Tremor Visible Yawning Observation: 1= 1-2x During Session Anxiety or Irritability: 2=Irritable/Anxious Goose Flesh Skin: 0=Smooth Skin COWS Score: 17 S Progress Note (SOAP) Subjective: alert,irritable,anxious,interrupted sleep,tremor,pain in the body Objective: 03/08/17 10:55 Vital Signs Temperature 98.6 F 03/08/17 10:00 Pulse Rate 90 03/08/17 10:00 Respiratory Rate 18 03/08/17 10:00 Blood Pressure 151/98 03/08/17 10:00 O2 Sat by Pulse Oximetry (%) Assessment: 03/08/17 10:56 withdrawal symptom Plan: continue detox
[2017-03-08] MEDS: THIAMINE HCL 100 MG TABLET (FP) PO SCH (22:00)
[2017-03-08] MEDS: ZOLPIDEM TARTRATE 10 MG TABLET (PARK CARE ONLY) PO PRN (22:00)
[2017-03-08] MEDS: QUEtiapine FUMARATE 100 MG TABLET (FP) PO SCH (22:01)
[2017-03-09] MEDS: GABAPENTIN 400 MG CAPSULE (FP) PO SCH ×3 (06:55→22:26)
[2017-03-09] MEDS: LEVOFLOXACIN 250 MG TABLET (FP) PO SCH (06:55)
[2017-03-09] MEDS: NICOTINE 14 MG/24 HOURS TOPICAL PATCH TD SCH (11:15)
[2017-03-09] MEDS: diazePAM 5 MG TABLET PO SCH ×2 (11:16→22:26)
[2017-03-09] MEDS: METHADONE HCL 5 MG TABLET (FOR DETOX USE ONLY) PO SCH (11:16)
[2017-03-09] MEDS: SERTRALINE HCL 50 MG TABLET (FP) PO SCH (11:16)
[2017-03-09] MEDS: SULFAMETHOXAZOLE/TRIMETHOPRIM 800MG/160MG D.S. TABLET PO SCH (11:16)
[2017-03-09] MEDS: PRENATAL VITAMINS W/ FOLIC ACID TABLET (FP) PO SCH (11:16)
[2017-03-09] MEDS: POTASSIUM CHLORIDE TABS 20 MEQ TABLET.ER (FP) PO SCH ×2 (11:16→22:27)
[2017-03-09] MEDS: IBUPROFEN 400 MG TABLET (FP) PO PRN (14:48)
--- NOTE | 2017-03-09 19:55 | PN ---
BHS Progress Note (SOAP) Subjective: Sweating,interrupted sleep,restless Objective: 03/09/17 19:53 Vital Signs - 8 hr 03/09/17 03/09/17 13:57 17:37 Temperature 97.9 F 99.5 F Pulse Rate 101 H 93 H Respiratory 18 18 Rate Blood Pressure 155/95 130/72 Laboratory Tests 03/06/17 03/07/17 03/07/17 18:44 07:00 07:00 WBC 2.9 L RBC 3.16 L Hgb 10.9 L Hct 31.4 L MCV 99.3 H MCH 34.7 H MCHC 34.9 RDW 14.5 Plt Count 154 D MPV 8.7 D Sodium 143 Potassium 3.1 L Chloride 109 H Carbon Dioxide 26 Anion Gap 8 BUN 17 Creatinine 1.0 D Creat Clearance w eGFR > 60 Random Glucose 105 Calcium 8.3 L Total Bilirubin 0.4 AST 83 H D ALT 37 D Alkaline Phosphatase 76 Total Protein 7.1 Albumin 3.0 L Urine Color Yellow Urine Appearance Slcloudy Urine pH 5.0 D Ur Specific [place] 1.025 Urine Protein 2+ H Urine Glucose (UA) Negative Urine Ketones Negative Urine Blood 2+ H Urine Nitrite Negative Urine Bilirubin Negative Urine Urobilinogen Negative Urine RBC 52 Urine WBC 2 Urine Mucus Rare RPR Titer 03/07/17 03/08/17 03/08/17 07:00 07:00 07:00 WBC 2.1 L RBC 2.98 L Hgb 9.9 L Hct 29.3 L MCV 98.4 H MCH 33.1 MCHC 33.6 RDW 14.8 Plt Count 128 L MPV 8.6 Sodium 143 Potassium 3.8 D Chloride 112 H Carbon Dioxide 25 Anion Gap 6 L BUN 16 Creatinine 0.8 Creat Clearance w eGFR > 60 Random Glucose 82 D Calcium 8.1 L Total Bilirubin 0.4 AST 50 H D ALT 29 D Alkaline Phosphatase 66 Total Protein 6.4 Albumin 2.6 L Urine Color Urine Appearance Urine pH Ur Specific [place] Urine Protein Urine Glucose (UA) Urine Ketones Urine Blood Urine Nitrite Urine Bilirubin Urine Urobilinogen Urine RBC Urine WBC Urine Mucus RPR Titer Nonreactive labs noted, repeat u/a Assessment: 03/09/17 19:54 Withdrawal sx. Plan: Continue detox
[2017-03-09] MEDS: ZOLPIDEM TARTRATE 10 MG TABLET (PARK CARE ONLY) PO PRN (21:55)
[2017-03-09] MEDS: QUEtiapine FUMARATE 100 MG TABLET (FP) PO SCH (22:26)
[2017-03-09] MEDS: THIAMINE HCL 100 MG TABLET (FP) PO SCH (22:26)
[2017-03-10] MEDS: GABAPENTIN 400 MG CAPSULE (FP) PO SCH ×3 (07:41→22:17)
[2017-03-10] MEDS: LEVOFLOXACIN 250 MG TABLET (FP) PO SCH (07:42)
[2017-03-10] MEDS ORDERED: diazePAM 5 MG TABLET PO SCH (10:00)
[2017-03-10] MEDS ORDERED: METHADONE HCL 10 MG TABLET (FOR DETOX USE ONLY) PO SCH (10:00)
[2017-03-10] MEDS: POTASSIUM CHLORIDE TABS 20 MEQ TABLET.ER (FP) PO SCH ×2 (11:24→22:17)
[2017-03-10] MEDS: SULFAMETHOXAZOLE/TRIMETHOPRIM 800MG/160MG D.S. TABLET PO SCH (11:24)
[2017-03-10] MEDS: PRENATAL VITAMINS W/ FOLIC ACID TABLET (FP) PO SCH (11:24)
[2017-03-10] MEDS: SERTRALINE HCL 50 MG TABLET (FP) PO SCH (11:24)
--- NOTE | 2017-03-10 13:25 | PN ---
BHS Progress Note (SOAP) Subjective: ALERT,IRRITABLE,ANXIOUS,INTERRUPTED SLEEP,BACK PAIN Objective: 03/10/17 13:24 Vital Signs Temperature 97.1 F L 03/10/17 09:58 Pulse Rate 113 H 03/10/17 09:58 Respiratory Rate 18 03/10/17 09:58 Blood Pressure 124/59 03/10/17 09:58 O2 Sat by Pulse Oximetry (%) WITHDRAWAL SYMPTOM Assessment: 03/10/17 13:24 WITHDRAWAL SYMPTOM Plan: CONTINUE DETOX,DISCHARGE IN AM
[2017-03-10] MEDS ORDERED: ZOLPIDEM TARTRATE 10 MG TABLET (PARK CARE ONLY) PO PRN (16:42)
[2017-03-10] MEDS: THIAMINE HCL 100 MG TABLET (FP) PO SCH (22:16)
[2017-03-10] MEDS: QUEtiapine FUMARATE 100 MG TABLET (FP) PO SCH (22:16)
[2017-03-11] MEDS ORDERED: METHADONE HCL 5 MG TABLET (FOR DETOX USE ONLY) PO SCH (06:00)
[2017-03-11] MEDS: GABAPENTIN 400 MG CAPSULE (FP) PO SCH (06:20)
[2017-03-11] MEDS: LEVOFLOXACIN 250 MG TABLET (FP) PO SCH (06:21)
[2017-03-11] MEDS: IBUPROFEN 400 MG TABLET (FP) PO PRN (06:21)
--- NOTE | 2017-03-11 08:04 | DS ---
[facility] Detox Discharge Summary Admission Date: 03/06/17 Discharge Date: 03/11/17 - History Present History: Alcohol Dependence, Cocaine Dependence, Opioid Dependence Additional Comments: FOLLOW UP WITH AFTER CARE PROGRAM ARRANGEMENT Pertinent Past History: ASTHMA CHRONIC LOW BACK PAIN HEPATITIS C NEUROPATHY BIPOLAR DISORDER LEUKOPENIA HYPOKALEMIA BIPOLAR DISORDER NICOTINE DEPENDENCE - Physical Exam Results Vital Signs: Vital Signs Temperature 101.7 F H 03/11/17 06:39 Pulse Rate 95 H 03/11/17 06:39 Respiratory Rate 18 03/11/17 06:39 Blood Pressure 116/58 03/11/17 06:39 O2 Sat by Pulse Oximetry (%) Pertinent Admission Physical Exam Findings: WITHDRAWAL FINDING - Treatment Hospital Course: Detox Protocol Followed, Detoxed Safely, Responded well, Discharged Condition Good Patient has Accepted a Rehab Referral to: DECLINED - Medication Discharge Medications: Ambulatory Orders Albuterol Sulfate Inhaler - [Ventolin HFA Inhaler -] 2 puff IH Q4H PRN #1 inhaler 12/07/16 Sulfamethoxazole/Trimethoprim [Bactrim DS -] 1 each PO DAILY #30 tab 12/07/16 Gabapentin [Neurontin -] 400 mg PO Q8H 03/06/17 Quetiapine Fumarate [Seroquel] 100 tab PO HS #30 tab 03/07/17 Sertraline HCl [Zoloft -] 50 mg PO DAILY #30 tablet 03/07/17 - Diagnosis (1) Opioid dependence with withdrawal Current Visit: Yes Status: Acute (2) Alcohol dependence with uncomplicated withdrawal Current Visit: Yes Status: Acute (3) Weight loss Current Visit: Yes Status: Acute (4) Arthritis Current Visit: Yes Status: Chronic (5) Cocaine dependence Current Visit: Yes Status: Chronic (6) Neuropathy Current Visit: Yes Status: Chronic (7) Use of cane as ambulatory aid Current Visit: No Status: Chronic (8) Chronic low back pain Current Visit: Yes Status: Acute (9) Acquired immune deficiency syndrome (AIDS) Current Visit: Yes Status: Chronic (10) Anemia Current Visit: Yes Status: Acute (11) Leukopenia Current Visit: Yes Status: Acute (12) Hypokalemia Current Visit: Yes Status: Acute (13) Hepatitis C Current Visit: Yes Status: Acute (14) Bipolar disorder Current Visit: Yes Status: Acute - AMA Did Patient Leave Against Medical Advice: No
[2017-03-11 09:51] VITALS: BP 99/51; PULSE 97; TEMP 99.3
[2017-03-11] MEDS ORDERED: FERROUS SO4 325 MG TABLET (FP) PO SCH (10:00)
[2017-03-11] MEDS: PRENATAL VITAMINS W/ FOLIC ACID TABLET (FP) PO SCH (10:20)
[2017-03-11] MEDS: SULFAMETHOXAZOLE/TRIMETHOPRIM 800MG/160MG D.S. TABLET PO SCH (10:20)
[2017-03-11] MEDS: SERTRALINE HCL 50 MG TABLET (FP) PO SCH (10:20)
[2017-03-11] MEDS: POTASSIUM CHLORIDE TABS 20 MEQ TABLET.ER (FP) PO SCH (10:20)
== END 2017-03-11 12:49 | disposition home or self-care (01) | DRG 773 ==
LOC: YASAS 10:10 → Y6N 14:05
PROVIDERS: ADMIT Internal Medicine; ATTEND Internal Medicine
PROC: HZ2ZZZZ Detoxification Services for Substance Abuse Treatment (ICD-10-PCS; principal; 2017-03-06)
DX: F11.23 Opioid dependence with withdrawal (principal); F10.230 Alcohol dependence with withdrawal, uncomplicated; F14.20 Cocaine dependence, uncomplicated; F17.210 Nicotine dependence, cigarettes, uncomplicated; F19.24 Other psychoactive substance dependence with psychoactive substance-induced mood disorder; D72.819 Decreased white blood cell count, unspecified; G62.9 Polyneuropathy, unspecified; M19.90 Unspecified osteoarthritis, unspecified site; B20 Human immunodeficiency virus [HIV] disease; E87.6 Hypokalemia; B18.2 Chronic viral hepatitis C; M54.5 Low back pain; G89.29 Other chronic pain; J45.909 Unspecified asthma, uncomplicated; R26.2 Difficulty in walking, not elsewhere classified; Z99.89 Dependence on other enabling machines and devices; Z91.013 Allergy to seafood; Z87.898 Personal history of other specified conditions; Z91.14 Patient's other noncompliance with medication regimen
CPT/HCPCS: 36415; 80053; 81003; 81015; 85027; 86593; 90688; 93005; 93010; G0008